=== PATIENT | male | born 1970 | race Caucasian/White ===

== ENCOUNTER 2018-06-20 12:23 | Emergency (ER) | payer SELFPAY ==
[~2018-06-20] VITALS: Ht 175.3 cm; Wt 99.8 kg
--- NOTE | 2018-06-20 12:53 | PHYS DOC ---
Past Medical History Past Medical History: No Pertinent History Past Surgical History: No Surgical History Additional Information: 2-3 PPD Alcohol Use: None Drug Use: Marijuana Adult General Chief Complaint Chief Complaint: HEAD INJURY/TRAUMA HPI HPI Patient is a 48 year old male whom presents to the ED complaining of ear injury 30 minutes ago. Patient cuts trees for a living and states he fell off a six-foot ladder and hit his head on a branch when he fell. States he cut his left ear but otherwise no complaints. Denies LOC, vision changes, nausea/ vomiting, weakness, dizziness, inability to walk, pelvic pain, use of blood thinners or chest pain. Review of Systems Review of Systems Constitutional: Denies fever or chills [] Eyes: Denies change in visual acuity, redness, or eye pain [] HENT: Denies nasal congestion or sore throat [] Respiratory: Denies cough or shortness of breath [] Cardiovascular: No additional information not addressed in HPI [] GI: Denies abdominal pain, nausea, vomiting, bloody stools or diarrhea [] : Denies dysuria or hematuria [] Musculoskeletal: Denies back pain or joint pain [] Integument: Denies rash or skin lesions [] Neurologic: Denies headache, focal weakness or sensory changes [] All other systems were reviewed and found to be within normal limits, except as documented in this note. Current Medications Current Medications Current Medications Medications (Trade) Dose Ordered Sig/Ross Start Time Stop Time Status Last Admin Dose Admin Acetaminophen/ Hydrocodone Bitart (Lortab 5/325) 1 tab 1X ONCE 06/20/18 14:00 06/20/18 14:01 DC 06/20/18 14:28 1 TAB Diphtheria/ Tetanus/Acell Pertussis (Boostrix) 0.5 ml ONCE ONCE 06/20/18 13:45 06/20/18 13:46 DC 06/20/18 14:30 0.5 ML Lidocaine HCl (Xylocaine 1% Pf 30ml Vial) 30 ml 1X ONCE 06/20/18 14:30 06/20/18 14:31 DC 06/20/18 14:23 30 ML Lidocaine/Sodium Bicarbonate (Buffered Lidocaine 1%) 6 ml 1X ONCE 06/20/18 13:15 06/20/18 13:16 DC 06/20/18 13:35 6 ML Neomycin/ Polymyxin/ Bacitracin (Triple Antibiotic Ointment) 1 pkt 1X ONCE 06/20/18 15:15 06/20/18 15:16 DC 06/20/18 15:38 1 PKT Ondansetron HCl (Zofran Odt) 8 mg 1X ONCE 06/20/18 15:45 06/20/18 15:46 DC 06/20/18 15:38 8 MG Allergies Allergies Allergies Coded Allergies Type Severity Reaction Last Updated Verified No Known Drug Allergies 06/20/18 No Physical Exam Physical Exam Constitutional: Well developed, well nourished, no acute distress, non-toxic appearance. [] HENT: Normocephalic, atraumatic, 5 CM left ear irregular laceration/avulsion to ear lobe through the middle of the pinna. oropharynx moist, no oral exudates, nose normal. [] Eyes: PERRLA, EOMI, conjunctiva normal, no discharge. [] Neck: Normal range of motion, no tenderness, supple, no stridor. [] Cardiovascular:Heart rate regular rhythm, no murmur [] Lungs & Thorax: Bilateral breath sounds clear to auscultation. mild left anterior rib tenderness. No overlying skin changes. Abdomen: Bowel sounds normal, soft, no tenderness, no masses, no pulsatile masses. [] Skin: Warm, dry, no erythema, no rash. [] Back: No tenderness, no CVA tenderness. [] Extremities: No tenderness, no cyanosis, no clubbing, ROM intact, no edema. [] Neurologic: Alert and oriented X 3, normal motor function, normal sensory function, no focal deficits noted. [] Psychologic: Affect normal, judgement normal, mood normal. [] Current Patient Data Vital Signs Vital Signs Date Time Temp Pulse Resp B/P (MAP) Pulse Ox O2 Delivery O2 Flow Rate FiO2 06/20/18 15:35 91 18 148/92 (110) 98 Room Air 06/20/18 12:30 97.3 97.3 EKG EKG [] Radiology/Procedures Radiology/Procedures []CT head and cervical spine without contrast History: Head and neck injury Technique: Noncontrast CT imaging was performed of the head and cervical spine. Multiplanar reconstruction images are submitted. Exposure: One or more of the following individualized dose reduction techniques were utilized for this examination: 1. Automated exposure control 2. Adjustment of the mA and/or kV according to patient size 3. Use of iterative reconstruction technique. Head CT Comparison: None Findings: No acute extra-axial or parenchymal hemorrhage is identified. There is no significant intra-axial mass effect, midline shift, or extra-axial fluid collection. The dale-white differentiation of the major vascular territories is preserved. The ventricles, sulci, and cisterns are within normal limits in size and configuration. Mastoid air cells are aerated. There is patchy mild/moderate ethmoid air cell mucosal thickening.There is no significant focal calvarial abnormality. There is right parietal region scalp soft tissue swelling/hematoma. Impression: 1. No acute intracranial abnormality is identified. Cervical spine CT Comparison: None Findings: No acute cervical spine fracture is identified. Vertebral body stature and AP alignment are within normal limits. Atlanto-axial distance is within normal limits. There is appropriate alignment of lateral masses of C1 relative to C2. Occipital condylar-C1 relationship is maintained. There is incomplete fusion of posterior elements of T1, corticated margin. There is moderate to severe degenerative disc disease at C5-C6, disc osteophyte complex at this level. There is also facet and uncovertebral degenerative change greatest on the left at C5-6 resulting in moderate narrowing of the left neural foramen. There is other multilevel facet degenerative change. There is mild dextroscoliosis. Impression: 1. No acute cervical spine fracture is identified. 2. There is degenerative disc disease and spondylosis C5-6. There is also moderate narrowing of the left C5-C6 neural foramen due to facet and uncovertebral degenerative change. Electronically signed by: Jh Osuna MD (06/20/2018 1:47 PM) [id number] Course & Med Decision Making Course & Med Decision Making Pertinent Labs and Imaging studies reviewed. (See chart for details) []Discussed imaging findings with patient. Patients pain improved. States he is feeling much better. Laceration repaired (multiple avulsed areas to left ear). No complications. Tetanus updated. Will discharge with prophylactic antibiotics. Discussed symptomatic treatment and wound care. Discussed follow- up for wound re-evaluation in 3 days. Provided contact information/education. Discussed reasons to return to the ED. Patient understands and agrees with plan. Dragon Disclaimer Dragon Disclaimer This electronic medical record was generated, in whole or in part, using a voice recognition dictation system. Departure Departure Impression: Primary Impression: Laceration of ear Additional Impressions: Head injury Rib pain Disposition: 01 HOME, SELF-CARE Condition: IMPROVED Referrals: MIGUEL RUTH MD Patient Instructions: Facial Laceration, Laceration Care, Adult Scripts Cephalexin (KEFLEX) 500 Mg Capsule 1 CAP PO QID for 7 Days, #28 CAP Prov: BRIANNE TEJADA 06/20/18 Laceration/Wound Repair Laceration/Wound Repair : Wound Location: face (left ear) Wound's Depth, Shape: superficial, irregular Wound Length (cm): 5 Wound Explored: clean Irrigated w/ Saline (ccs): 500 Betadine Prep?: Yes Anesthesia: 1% Lidocaine Volume Anesthetic (ccs): 6 Wound Debrided: minimal Wound Repaired With: sutures Suture Size/Type: 5:0, proline Number of Sutures: 8 Sterile Dressing Applied?: Yes Progress Well tolerated. No complications. Problem Qualifiers BRIANNE TEJADA Jun 20, 2018 12:52
[2018-06-20] MEDS ORDERED: LIDOCAINE WITH 8.4% SOD BICARB 3 ML DISP.SYRIN. INJ ONE (13:15)
[2018-06-20] MEDS ORDERED: DIPHTH,PERTUSS(ACELL),TET TOX 0.5 ML DISP.SYRIN. VAX IM ONE (13:45)
--- NOTE | 2018-06-20 13:50 | RAD ---
Left RIBS with chest, 3 views, 06/20/2018: HISTORY: Left-sided pain after fall Mild deformity of the anterior aspect of the left seventh rib is most likely due to an old fracture. No definite acute rib fracture is identified. There is no evidence of underlying pneumothorax, hemothorax or pleural fluid. The heart size is normal. IMPRESSION: 1. Mild deformity of the anterior aspect of the left seventh rib most compatible with an old fracture. 2. No acute left rib abnormality is detected. Electronically signed by: Rey Zaragoza MD (06/20/2018 1:46 PM) [facility]
--- NOTE | 2018-06-20 13:51 | RAD ---
CT head and cervical spine without contrast History: Head and neck injury Technique: Noncontrast CT imaging was performed of the head and cervical spine. Multiplanar reconstruction images are submitted. Exposure: One or more of the following individualized dose reduction techniques were utilized for this examination: 1. Automated exposure control 2. Adjustment of the mA and/or kV according to patient size 3. Use of iterative reconstruction technique. Head CT Comparison: None Findings: No acute extra-axial or parenchymal hemorrhage is identified. There is no significant intra-axial mass effect, midline shift, or extra-axial fluid collection. The dale-white differentiation of the major vascular territories is preserved. The ventricles, sulci, and cisterns are within normal limits in size and configuration. Mastoid air cells are aerated. There is patchy mild/moderate ethmoid air cell mucosal thickening.There is no significant focal calvarial abnormality. There is right parietal region scalp soft tissue swelling/hematoma. Impression: 1. No acute intracranial abnormality is identified. Cervical spine CT Comparison: None Findings: No acute cervical spine fracture is identified. Vertebral body stature and AP alignment are within normal limits. Atlanto-axial distance is within normal limits. There is appropriate alignment of lateral masses of C1 relative to C2. Occipital condylar-C1 relationship is maintained. There is incomplete fusion of posterior elements of T1, corticated margin. There is moderate to severe degenerative disc disease at C5-C6, disc osteophyte complex at this level. There is also facet and uncovertebral degenerative change greatest on the left at C5-6 resulting in moderate narrowing of the left neural foramen. There is other multilevel facet degenerative change. There is mild dextroscoliosis. Impression: 1. No acute cervical spine fracture is identified. 2. There is degenerative disc disease and spondylosis C5-6. There is also moderate narrowing of the left C5-C6 neural foramen due to facet and uncovertebral degenerative change. Electronically signed by: Jh Osuna MD (06/20/2018 1:47 PM) [id number]
[2018-06-20] MEDS ORDERED: HYDROcodone/APAP 5/325MG 1 TAB TABLET PO ONE (14:00)
[2018-06-20] MEDS ORDERED: LIDOCAINE 1% PF 30 ML VIAL. INJ ONE (14:30)
[2018-06-20] MEDS ORDERED: CEPH-264 PO (14:55)
[2018-06-20] MEDS ORDERED: NEOMY/BACITR/POLYMYXIN OINT PACKET. TP ONE (15:15)
[2018-06-20 15:35] VITALS: BP 148/92
[2018-06-20] MEDS ORDERED: ONDANSETRON ODT 4 MG TAB.RAPDIS. PO ONE (15:45)
== END 2018-06-20 15:40 | disposition home or self-care (01) ==
LOC: ER 12:23
DX: S01.312A Laceration without foreign body of left ear, initial encounter (principal); S09.90XA Unspecified injury of head, initial encounter; R07.81 Pleurodynia; F17.200 Nicotine dependence, unspecified, uncomplicated; W11.XXXA Fall on and from ladder, initial encounter; Y93.89 Activity, other specified; Y92.89 Other specified places as the place of occurrence of the external cause; Y99.8 Other external cause status
CPT/HCPCS: 12013; 70450; 71101; 72125; 90471; 90715; 99284; Q0162

== ENCOUNTER 2018-12-11 10:00 | Inpatient (IN) | payer SELFPAY ==
[2018-12-11] VITALS (16 sets, daily range): BP systolic 80–110; BP diastolic 50–75
[~2018-12-11] VITALS: Ht 185.4 cm; Wt 99.5 kg
[~2018-12-11 10:00] MED LIST: CEPH-264 PO
[2018-12-11] MEDS ORDERED: ONDANSETRON PF 4 MG/2 ML VIAL. ONE (10:09)
[2018-12-11] MEDS ORDERED: ONDANSETRON PF 4 MG/2 ML VIAL. IV ONE (10:15)
[2018-12-11] MEDS ORDERED: IV NORMAL SALINE 1000ML BAG 1,000 ML IV ONE ×2 (10:15→14:00)
[2018-12-11] MEDS ORDERED: PROPOFOL 50 ML IV ONE ×2 (10:16→11:38)
[2018-12-11 10:25] LABS: BASO # 0.1 x10^3/uL (0.0-0.2); BASO % 1 % (0-3); EOS % 0 % (0-3); HEMATOCRIT 47.3 % (39.0-53.0); HEMOGLOBIN 16.3 g/dL (13.0-17.5); LYMPH # 1.3 x10^3/uL (1.0-4.8); LYMPH % 5 % (24-48); MEAN CORPUSCULAR HEMOGLOBIN 30 pg (25-35); MEAN CORPUSCULAR HGB CONC 34 g/dL (31-37); MEAN CORPUSCULAR VOLUME 86 fL (79-100); MONO # 1.3 x10^3/uL (0.0-1.1); MONO % 5 % (0-9); NEUT % 89 % (31-73); PLATELET COUNT 365 x10^3/uL (140-400); RED BLOOD COUNT 5.52 x10^6/uL (4.30-5.70); RED CELL DISTRIBUTION WIDTH 12.5 % (11.5-14.5); WHITE BLOOD COUNT 24.8 x10^3/uL (4.0-11.0)
[2018-12-11] MEDS ORDERED: PROPOFOL 100 ML IV PRN (10:30)
[2018-12-11] MEDS ORDERED: fentaNYL PF VIAL 100 MCG/2 ML VIAL IV PRN (10:30)
[2018-12-11 10:32] LABS: CALCIUM 9.1 mg/dL (8.5-10.1); CREATININE 0.7 mg/dL (0.7-1.3); GFR 119.4; POTASSIUM 4.6 mmol/L (3.5-5.1)
[2018-12-11 10:39] LABS: ALBUMIN 3.6 g/dL (3.4-5.0); ALBUMIN/GLOBULIN RATIO 0.9 (1.0-1.7); TOTAL BILIRUBIN 0.4 mg/dL (0.2-1.0); TOTAL PROTEIN 7.6 g/dL (6.4-8.2)
[2018-12-11 10:48] LABS: ACETAMIN < 2 mcg/ml (10-30)
[2018-12-11 10:50] LABS: SALIC 39.7 mg/dL (2.8-20.0)
[2018-12-11 10:51] LABS: BARBITURATES NEG (NEG); BENZODIAZEPINES NEG (NEG); BILIRUBIN,URINE NEGATIVE (NEG); CANNABINOIDS NEG (NEG); CLARITY,URINE CLEAR; COCAINE NEG (NEG); COLOR,URINE YELLOW; METHADONE NEG (NEG); NITRITE,URINE NEGATIVE (NEG); OPIATES NEG (NEG); PH,URINE 6.5; PHENCYCLIDINE NEG (NEG); PROTEIN,URINE NEGATIVE (NEG-TRACE); UROBILINOGEN,URINE 0.2 mg/dL (0.2 mg/dL)
[2018-12-11 10:52] LABS: AMPHETAMINE/METHAMPHETAMINE NEG (NEG)
[2018-12-11] MEDS ORDERED: SODIUM BICARB ADULT 8.4% 50 MEQ/50 ML DISP.SYRIN. IV ONE (11:00)
--- NOTE | 2018-12-11 11:01 | EKG ---
[facility] [address] [place] [address] Test Date: 2018-12-11 Test Time: 10:12:37 Pat Name: HOSSEIN ZEE Department: Room: Gender: M [employer]: : [id number] Requested By: RODRI NG Order Number: [id number] Reading MD: Abisai Zuniga MD Measurements Intervals [place] Rate: 99 P: 51 OR: 146 QRS: 26 QRSD: 76 T: 54 QT: 346 QTc: 449 Interpretive Statements SINUS RHYTHM ANTERIOR ST SEGMENT CHANGES, NON-SPECIFIC, CORRELATE CLINICALLY Electronically Signed On 12-11-2018 11:12:56 CDT by Abisai Zuniga MD
--- NOTE | 2018-12-11 11:02 | RAD ---
Chest radiograph 12/11/2018 10:35 AM Abdominal radiograph INDICATION: Intubated orogastric tube placement COMPARISON: Chest radiograph June 20, 2018 TECHNIQUE: Supine view of the chest and supine view of abdomen are provided. FINDINGS: The cardiomediastinal silhouette is within normal limits. Endotracheal tube terminates 5 cm above the level of the david. Nasogastric tube is identified coursing below the level of the diaphragm, however the side port is above the level of the gastroesophageal junction. This may be advanced approximately 7 cm. There are no pleural effusions. There is no pulmonary vascular congestion. There is no pneumothorax. The lungs are clear. No significant osseous abnormality is identified. There is moderate distention of the stomach. There is a dilated small bowel loop in the left lower quadrant measuring 3.6 cm. Ulceration may be given for an ileus. No suspicious calcifications are present. IMPRESSION: 1. Endotracheal tube is in appropriate position. 2. Nasogastric tube may be advanced approximately 7 cm as the side port is above the level of the expected region of the gastroesophageal junction. 3. Moderate dilatation of the stomach and dilated small bowel loop in the left lower quadrant. Consideration may be given for an ileus. FOR INTERNAL CODING PURPOSES Critical result: Findings discussed with RODRI NG at 12/11/2018 10:58 AM. RESULT CODE: (C) Electronically signed by: Manuela Pagan MD (12/11/2018 10:59 AM) [id number]
[2018-12-11 11:04] LABS: AMORPHOUS SEDIMENT,UR PRESENT /HPF; BACTERIA,URINE 0 /HPF (0-FEW); HYALINE CASTS, URINE OCCASIONAL /HPF; RBC,URINE 0 /HPF (0-2); SQUAMOUS EPITHELIAL CELL,UR OCC /LPF; WBC,URINE 0 /HPF (0-4)
[2018-12-11 11:08] LABS: BASE EXCESS COOX -5 mmol/L (-3-3); HCO3 COOX 20 mmol/L (21-28); METHEMOGLOBIN 0.3 % (0.0-1.9); OXYHEMOGLOBIN 98.3 %; PCO2 COOX 36 mmHg (35-46); PO2 COOX 189 mmHg (75-108); SAT O2 COOX 99 % (92-99)
--- NOTE | 2018-12-11 11:13 | PHYS DOC ---
Past Medical History Past Medical History: No Pertinent History Past Surgical History: No Surgical History Alcohol Use: None Drug Use: Marijuana Adult General Chief Complaint Chief Complaint: SUICDAL IDEATION HPI HPI 48-year-old male with a history of hypertension and paranoid schizophrenia with previous suicide attempts presents after being found unresponsive today. According to the family the patient has been in and out of hospitals last several days with uncontrolled blood pressure. Apparently his blood pressure has been as high as 250 systolic. He was started on metoprolol out of the emergency department. The son found an empty bottle of metoprolol today and thinks that he may have taken as many as 20. He does not know of any other pills that he would have ingested. He did not find any other empty bottles in the house. Apparently, the patient was missing for some period of time and the [employer] Department found [place] [employer] in his [place] with large lacerations to both forearms. In talking to the family, there was also some blood at home so he may have done this as well at home. They did not see any ligature apparatus consistent with hanging. The patient is altered and is unable to provide any history.] Review of Systems Review of Systems Patient is unable to provide review of systems secondary to critical nature of his illness and altered mental status Current Medications Current Medications Current Medications Medications (Trade) Dose Ordered Sig/Ross Start Time Stop Time Status Last Admin Dose Admin Fentanyl Citrate (Fentanyl 2ml Vial) 50 mcg PRN Q1HR PRN 12/11/18 10:30 12/11/18 14:19 50 MCG Ondansetron HCl (Zofran) 4 mg 1X ONCE 12/11/18 10:15 12/11/18 10:16 DC 12/11/18 10:11 4 MG Propofol 100 ml @ 0 mls/hr CONT PRN 12/11/18 10:30 12/11/18 10:35 3 MLS/HR Sodium Bicarbonate (Sodium Bicarb Adult 8.4% Syr) 150 meq 1X ONCE 12/11/18 11:00 12/11/18 11:06 DC 12/11/18 11:27 150 MEQ Sodium Chloride 1,000 ml @ 1,000 mls/hr 1X ONCE 12/11/18 10:15 12/11/18 11:14 DC 12/11/18 10:12 1,000 MLS/HR Allergies Allergies Allergies Coded Allergies Type Severity Reaction Last Updated Verified No Known Drug Allergies 06/20/18 No Physical Exam Physical Exam Constitutional: Well developed, well nourished, in obvious distress with altered mental status. [] HENT: Normocephalic, atraumatic, bilateral external ears normal, oropharynx moist, no oral exudates, nose normal, very poor dentition. [] Eyes: Significant some conjunctival hemorrhage/petechiae bilateral eyes. [] Neck: Bruising around the neck consistent with ligature riggins[] Cardiovascular:Heart rate regular rhythm, no murmur [] Lungs & Thorax: Bilateral breath sounds clear to auscultation [] Abdomen: Bowel sounds normal, soft, no tenderness, no masses, no pulsatile masses. [] Skin: 10 cm deep laceration on the right forearm, an 8 cm laceration to the left proximal forearm and a 8 cm laceration to the left wrist. [] Back: No tenderness, no CVA tenderness. [] Extremities: No tenderness, no cyanosis, no clubbing, ROM intact, no edema. [] Neurologic: GCS of 9 moving all 4 extremities[] Psychologic: Unable to fully assess[] Current Patient Data Vital Signs Vital Signs Date Time Temp Pulse Resp B/P (MAP) Pulse Ox O2 Delivery O2 Flow Rate FiO2 12/11/18 11:10 90 16 133/94 (107) 100 Ventilator 12/11/18 10:15 2.0 12/11/18 10:09 98.6 98.6 Lab Values Laboratory Tests Test 12/11/18 10:00 12/11/18 10:03 12/11/18 10:19 12/11/18 10:22 Lactic Acid Level 2.1 mmol/L (0.4-2.0) H White Blood Count 24.8 x10^3/uL (4.0-11.0) H Red Blood Count 5.52 x10^6/uL (4.30-5.70) Hemoglobin 16.3 g/dL (13.0-17.5) Hematocrit 47.3 % (39.0-53.0) Mean Corpuscular Volume 86 fL (79-100) Mean Corpuscular Hemoglobin 30 pg (25-35) Mean Corpuscular Hemoglobin Concent 34 g/dL (31-37) Red Cell Distribution Width 12.5 % (11.5-14.5) Platelet Count 365 x10^3/uL (140-400) Neutrophils (%) (Auto) 89 % (31-73) H Lymphocytes (%) (Auto) 5 % (24-48) L Monocytes (%) (Auto) 5 % (0-9) Eosinophils (%) (Auto) 0 % (0-3) Basophils (%) (Auto) 1 % (0-3) Neutrophils # (Auto) 22.0 x10^3uL (1.8-7.7) H Lymphocytes # (Auto) 1.3 x10^3/uL (1.0-4.8) Monocytes # (Auto) 1.3 x10^3/uL (0.0-1.1) H Eosinophils # (Auto) 0.0 x10^3/uL (0.0-0.7) Basophils # (Auto) 0.1 x10^3/uL (0.0-0.2) Segmented Neutrophils % 87 % (35-66) H Band Neutrophils % 3 % (0-9) Lymphocytes % 7 % (24-48) L Monocytes % 3 % (0-10) Platelet Estimate Adequate (ADEQUATE) Sodium Level 129 mmol/L (136-145) L Potassium Level 4.6 mmol/L (3.5-5.1) Chloride Level 92 mmol/L (98-107) L Carbon Dioxide Level 25 mmol/L (21-32) Anion Gap 12 (6-14) Blood Urea Nitrogen 8 mg/dL (8-26) Creatinine 0.7 mg/dL (0.7-1.3) Estimated GFR (Cockcroft-Gault) 119.4 BUN/Creatinine Ratio 11 (6-20) Glucose Level 102 mg/dL (70-99) H Calcium Level 9.1 mg/dL (8.5-10.1) Total Bilirubin 0.4 mg/dL (0.2-1.0) Aspartate Amino Transferase (AST) 25 U/L (15-37) Alanine Aminotransferase (ALT) 29 U/L (16-63) Alkaline Phosphatase 79 U/L (46-116) Total Protein 7.6 g/dL (6.4-8.2) Albumin 3.6 g/dL (3.4-5.0) Albumin/Globulin Ratio 0.9 (1.0-1.7) L Salicylates Level 39.7 mg/dL (2.8-20.0) *H Salicylate Last Dose Date Unknown Salicylate Last Dose Time Unknown Acetaminophen Level < 2 mcg/ml (10-30) L Acetaminophen Last Dose Date Unknown Acetaminophen Last Dose Time Unknown Ethyl Alcohol Level < 10 mg/dL (0-10) O2 Saturation 99 % (92-99) Arterial Blood pH 7.35 (7.35-7.45) Arterial Blood pCO2 at Patient Temp 36 mmHg (35-46) Arterial Blood pO2 at Patient Temp 189 mmHg (75-108) H Arterial Blood HCO3 20 mmol/L (21-28) L Arterial Blood Base Excess -5 mmol/L (-3-3) L Oxyhemoglobin 98.3 % Methemoglobin 0.3 % (0.0-1.9) Carbon Monoxide, Quantitative 0.3 % (0.0-1.9) FiO2 100 Urine Collection Type Unknown Urine Color Yellow Urine Clarity Clear Urine pH 6.5 Urine Specific [place] 1.015 Urine Protein Negative mg/dL (NEG-TRACE) Urine Glucose (UA) Negative mg/dL (NEG) Urine Ketones (Stick) Negative mg/dL (NEG) Urine Blood Negative (NEG) Urine Nitrite Negative (NEG) Urine Bilirubin Negative (NEG) Urine Urobilinogen Dipstick 0.2 mg/dL (0.2 mg/dL) Urine Leukocyte Esterase Negative (NEG) Urine RBC 0 /HPF (0-2) Urine WBC 0 /HPF (0-4) Urine Squamous Epithelial Cells Occ /LPF Urine Amorphous Sediment Present /HPF Urine Bacteria 0 /HPF (0-FEW) Urine Hyaline Casts Occasional /HPF Urine Mucus Mod /LPF Urine Opiates Screen Neg (NEG) Urine Methadone Screen Neg (NEG) Urine Barbiturates Neg (NEG) Urine Phencyclidine Screen Neg (NEG) Urine Amphetamine/Methamphetamine Neg (NEG) Urine Benzodiazepines Screen Neg (NEG) Urine Cocaine Screen Neg (NEG) Urine Cannabinoids Screen Neg (NEG) Urine Ethyl Alcohol Neg (NEG) Laboratory Tests 12/11/18 10:03 Laboratory Tests 12/11/18 10:03 EKG EKG [] Radiology/Procedures Radiology/Procedures []PROCEDURE: CHEST AP ONLY Chest radiograph 12/11/2018 10:35 AM Abdominal radiograph INDICATION: Intubated orogastric tube placement COMPARISON: Chest radiograph June 20, 2018 TECHNIQUE: Supine view of the chest and supine view of abdomen are provided. FINDINGS: The cardiomediastinal silhouette is within normal limits. Endotracheal tube terminates 5 cm above the level of the david. Nasogastric tube is identified coursing below the level of the diaphragm, however the side port is above the level of the gastroesophageal junction. This may be advanced approximately 7 cm. There are no pleural effusions. There is no pulmonary vascular congestion. There is no pneumothorax. The lungs are clear. No significant osseous abnormality is identified. There is moderate distention of the stomach. There is a dilated small bowel loop in the left lower quadrant measuring 3.6 cm. Ulceration may be given for an ileus. No suspicious calcifications are present. IMPRESSION: 1. Endotracheal tube is in appropriate position. 2. Nasogastric tube may be advanced approximately 7 cm as the side port is above the level of the expected region of the gastroesophageal junction. 3. Moderate dilatation of the stomach and dilated small bowel loop in the left lower quadrant. Consideration may be given for an ileus. Impressions: PROCEDURE: CT HEAD AND CERVICAL SPINE [facility] Compliance Statement: One or more of the following individualized dose reduction techniques were utilized for this examination: 1. Automated exposure control 2. Adjustment of the mA and/or kV according to patient size 3. Use of iterative reconstruction technique CT HEAD AND CERVICAL SPINE WITHOUT CONTRAST History: TRAUMA. AMS. INTUBATED Comparison: CT head and cervical spine without contrast, June 20, 2018. Procedure: Axial images are obtained of the head from the skull base through the vertex without IV contrast. Noncontrast helical CT of the cervical spine was performed. Axial, sagittal, and coronal reconstructions were obtained. Findings: The ventricles and sulci are normal for the patient's age. No mass-effect, midline shift, hemorrhage or obvious acute infarction is identified. Basilar cisterns are patent. Bone windows demonstrate no significant calvarial abnormality. Mild bilateral ethmoid sinus mucosal thickening. Tiny right maxillary sinus mucous retention cyst or polyp. Mastoid air cells are well aerated. There is no evidence of acute fracture or acute malalignment of the cervical spine. The facet joints are intact. The vertebral body height and alignment are maintained. There is degenerative spondylosis of C5/C6. The craniovertebral junction is maintained. Visualized soft tissues of the neck demonstrate no significant abnormalities. There is opacity in the posterior right lung apex. Endotracheal and enteric tubes are noted. IMPRESSION: 1. No acute intracranial abnormality. 2. No acute fracture of the cervical spine. Course & Med Decision Making Course & Med Decision Making Pertinent Labs and Imaging studies reviewed. (See chart for details) [Procedure: Rapid sequence intubation reason: Airway protection Patient was breathing 8 times a minute with a reasonable oxygen saturation however he vomited and did not seem like he was protecting his airway. The patient was then given 20 mg of etomidate followed by 100 mg of succinylcholine and then using a direct visualization technique with a 4 Tung blade and 80 ET tube was placed at 21 cm at the lips. Slight CO2 color change was noted and bilateral breath sounds were auscultated. Procedure: Laceration repair right forearm - laceration is 10 cm The wound was prepped with Betadine and sponge scrubbing the area of the wound was inspected there was no foreign body been using a stapler 11 simple jt were applied with excellent reapproximation Procedure: Laceration repair left forearm - proximal laceration is 8 cm] The wound was prepped with Betadine and sponge scrubbing the area of the wound was inspected and there was no foreign body noted. Using a stapler 7 jt were applied with excellent reapproximation Procedure: Laceration repair left wrist - laceration is 8 cm The wound was prepped with Betadine and sponge scrubbing the area of the wound was inspected and there was no foreign body noted. Using a stapler 6 jt were applied with excellent reapproximation ED course: Evaluation reveals a critically ill 48-year-old male with an elevated salicylate level. The patient was intubated for airway protection. The patient was then given 3 A of sodium bicarbonate followed by a sodium bicarbonate drip at 200 mL an hour in an attempt alkalinize his urine. I have let Dr. Santamaria know about this patient and he is agreed to admit the patient to the ICU. We will consult both pulmonary and nephrology. Furthermore, the patient 's heart rate has been in the 90s and therefore I do not believe it is necessary at this time to use glucagon as an antidote for beta mariely overdose. The patient may very well have taken beta blockers but at this time it is not suggesting that. CRITICAL CARE: Time spent was 45 minutes. This includes medical management, evaluation, reevaluation, discussion with consultants and family. Critical Care does NOT include time spent on separately billed procedures. Dragon Disclaimer Dragon Disclaimer This electronic medical record was generated, in whole or in part, using a voice recognition dictation system. Departure Departure Impression: Primary Impression: Suicide attempt by beta mariely overdose Additional Impressions: Suicide attempt by hanging Salicylate overdose Laceration of right forearm Laceration of left forearm Laceration of left wrist Disposition: 09 ADMITTED INPATIENT Admitting Physician: Trisha Tolliver Condition: CRITICAL Referrals: NO PCP (PCP) Problem Qualifiers Primary Impression: Suicide attempt by beta mariely overdose Encounter type: initial encounter Qualified Codes: T44.7X2A - Poisoning by beta-adrenoreceptor antagonists, intentional self-harm, initial encounter Additional Impressions: Suicide attempt by hanging Encounter type: initial encounter Qualified Codes: T71.162A - Asphyxiation due to hanging, intentional self-harm, initial encounter Salicylate overdose Encounter type: initial encounter Injury intent: intentional self-harm Qualified Codes: T39.092A - Poisoning by salicylates, intentional self-harm, initial encounter Laceration of right forearm Encounter type: initial encounter Qualified Codes: S51.811A - Laceration without foreign body of right forearm, initial encounter Laceration of left forearm Encounter type: initial encounter Qualified Codes: S51.812A - Laceration without foreign body of left forearm, initial encounter Laceration of left wrist Encounter type: initial encounter Qualified Codes: S61.512A - Laceration without foreign body of left wrist, initial encounter RODRI NG DO Dec 11, 2018 11:13
[2018-12-11] MEDS ORDERED: TETANUS AND DIPHTHERIA TOX/PF 0.5 ML DISP.SYRIN. VAX IM ONE (11:15)
--- NOTE | 2018-12-11 11:20 | RAD ---
[facility] Compliance Statement: One or more of the following individualized dose reduction techniques were utilized for this examination: 1. Automated exposure control 2. Adjustment of the mA and/or kV according to patient size 3. Use of iterative reconstruction technique CT HEAD AND CERVICAL SPINE WITHOUT CONTRAST History: TRAUMA. AMS. INTUBATED Comparison: CT head and cervical spine without contrast, June 20, 2018. Procedure: Axial images are obtained of the head from the skull base through the vertex without IV contrast. Noncontrast helical CT of the cervical spine was performed. Axial, sagittal, and coronal reconstructions were obtained. Findings: The ventricles and sulci are normal for the patient's age. No mass-effect, midline shift, hemorrhage or obvious acute infarction is identified. Basilar cisterns are patent. Bone windows demonstrate no significant calvarial abnormality. Mild bilateral ethmoid sinus mucosal thickening. Tiny right maxillary sinus mucous retention cyst or polyp. Mastoid air cells are well aerated. There is no evidence of acute fracture or acute malalignment of the cervical spine. The facet joints are intact. The vertebral body height and alignment are maintained. There is degenerative spondylosis of C5/C6. The craniovertebral junction is maintained. Visualized soft tissues of the neck demonstrate no significant abnormalities. There is opacity in the posterior right lung apex. Endotracheal and enteric tubes are noted. IMPRESSION: 1. No acute intracranial abnormality. 2. No acute fracture of the cervical spine. Electronically signed by: Geo Frank MD (12/11/2018 11:17 AM) [id number]
[2018-12-11 11:30] LABS: % BANDS 3 % (0-9); % LYMPHS 7 % (24-48); % MONOS 3 % (0-10); % SEGS 87 % (35-66); PLT ESTIMATE ADEQUATE (ADEQUATE)
[2018-12-11] MEDS: SODIUM BICARBONATE VIAL 100 MEQ in IV DEXTROSE 5% 1,000 ML IV SCH ×3 (11:33→21:46)
[2018-12-11] MEDS ORDERED: ETOMIDATE 20 MG/10 ML VIAL. IV ONE (11:48)
[2018-12-11] MEDS ORDERED: SUCCINYLCHOLINE 200 MG/10 ML VIAL. ONE (11:49)
--- NOTE | 2018-12-11 13:14 | PDOC ---
PULMONARY PROGRESS NOTES Vitals Vital Signs Date Time Temp Pulse Resp B/P (MAP) Pulse Ox O2 Delivery O2 Flow Rate FiO2 12/11/18 11:10 90 16 133/94 (107) 100 Ventilator 12/11/18 10:15 2.0 12/11/18 10:09 98.6 98.6 Labs Laboratory Tests Test 12/11/18 10:00 12/11/18 10:03 12/11/18 10:19 12/11/18 10:22 Lactic Acid Level 2.1 mmol/L (0.4-2.0) White Blood Count 24.8 x10^3/uL (4.0-11.0) Red Blood Count 5.52 x10^6/uL (4.30-5.70) Hemoglobin 16.3 g/dL (13.0-17.5) Hematocrit 47.3 % (39.0-53.0) Mean Corpuscular Volume 86 fL (79-100) Mean Corpuscular Hemoglobin 30 pg (25-35) Mean Corpuscular Hemoglobin Concent 34 g/dL (31-37) Red Cell Distribution Width 12.5 % (11.5-14.5) Platelet Count 365 x10^3/uL (140-400) Neutrophils (%) (Auto) 89 % (31-73) Lymphocytes (%) (Auto) 5 % (24-48) Monocytes (%) (Auto) 5 % (0-9) Eosinophils (%) (Auto) 0 % (0-3) Basophils (%) (Auto) 1 % (0-3) Neutrophils # (Auto) 22.0 x10^3uL (1.8-7.7) Lymphocytes # (Auto) 1.3 x10^3/uL (1.0-4.8) Monocytes # (Auto) 1.3 x10^3/uL (0.0-1.1) Eosinophils # (Auto) 0.0 x10^3/uL (0.0-0.7) Basophils # (Auto) 0.1 x10^3/uL (0.0-0.2) Segmented Neutrophils % 87 % (35-66) Band Neutrophils % 3 % (0-9) Lymphocytes % 7 % (24-48) Monocytes % 3 % (0-10) Platelet Estimate Adequate (ADEQUATE) Sodium Level 129 mmol/L (136-145) Potassium Level 4.6 mmol/L (3.5-5.1) Chloride Level 92 mmol/L (98-107) Carbon Dioxide Level 25 mmol/L (21-32) Anion Gap 12 (6-14) Blood Urea Nitrogen 8 mg/dL (8-26) Creatinine 0.7 mg/dL (0.7-1.3) Estimated GFR (Cockcroft-Gault) 119.4 BUN/Creatinine Ratio 11 (6-20) Glucose Level 102 mg/dL (70-99) Calcium Level 9.1 mg/dL (8.5-10.1) Total Bilirubin 0.4 mg/dL (0.2-1.0) Aspartate Amino Transf (AST/SGOT) 25 U/L (15-37) Alanine Aminotransferase (ALT/SGPT) 29 U/L (16-63) Alkaline Phosphatase 79 U/L (46-116) Total Protein 7.6 g/dL (6.4-8.2) Albumin 3.6 g/dL (3.4-5.0) Albumin/Globulin Ratio 0.9 (1.0-1.7) Salicylates Level 39.7 mg/dL (2.8-20.0) Salicylate Last Dose Date Unknown Salicylate Last Dose Time Unknown Acetaminophen Level < 2 mcg/ml (10-30) Acetaminophen Last Dose Date Unknown Acetaminophen Last Dose Time Unknown Ethyl Alcohol Level < 10 mg/dL (0-10) O2 Saturation 99 % (92-99) Arterial Blood pH 7.35 (7.35-7.45) Arterial Blood pCO2 at Patient Temp 36 mmHg (35-46) Arterial Blood pO2 at Patient Temp 189 mmHg (75-108) Arterial Blood HCO3 20 mmol/L (21-28) Arterial Blood Base Excess -5 mmol/L (-3-3) Oxyhemoglobin 98.3 % Methemoglobin 0.3 % (0.0-1.9) Carbon Monoxide, Quantitative 0.3 % (0.0-1.9) FiO2 100 Urine Collection Type Unknown Urine Color Yellow Urine Clarity Clear Urine pH 6.5 Urine Specific [place] 1.015 Urine Protein Negative mg/dL (NEG-TRACE) Urine Glucose (UA) Negative mg/dL (NEG) Urine Ketones (Stick) Negative mg/dL (NEG) Urine Blood Negative (NEG) Urine Nitrite Negative (NEG) Urine Bilirubin Negative (NEG) Urine Urobilinogen Dipstick 0.2 mg/dL (0.2 mg/dL) Urine Leukocyte Esterase Negative (NEG) Urine RBC 0 /HPF (0-2) Urine WBC 0 /HPF (0-4) Urine Squamous Epithelial Cells Occ /LPF Urine Amorphous Sediment Present /HPF Urine Bacteria 0 /HPF (0-FEW) Urine Hyaline Casts Occasional /HPF Urine Mucus Mod /LPF Urine Opiates Screen Neg (NEG) Urine Methadone Screen Neg (NEG) Urine Barbiturates Neg (NEG) Urine Phencyclidine Screen Neg (NEG) Urine Amphetamine/Methamphetamine Neg (NEG) Urine Benzodiazepines Screen Neg (NEG) Urine Cocaine Screen Neg (NEG) Urine Cannabinoids Screen Neg (NEG) Urine Ethyl Alcohol Neg (NEG) Laboratory Tests Test 12/11/18 10:00 12/11/18 10:03 12/11/18 10:19 12/11/18 10:22 Lactic Acid Level 2.1 mmol/L (0.4-2.0) White Blood Count 24.8 x10^3/uL (4.0-11.0) Red Blood Count 5.52 x10^6/uL (4.30-5.70) Hemoglobin 16.3 g/dL (13.0-17.5) Hematocrit 47.3 % (39.0-53.0) Mean Corpuscular Volume 86 fL (79-100) Mean Corpuscular Hemoglobin 30 pg (25-35) Mean Corpuscular Hemoglobin Concent 34 g/dL (31-37) Red Cell Distribution Width 12.5 % (11.5-14.5) Platelet Count 365 x10^3/uL (140-400) Neutrophils (%) (Auto) 89 % (31-73) Lymphocytes (%) (Auto) 5 % (24-48) Monocytes (%) (Auto) 5 % (0-9) Eosinophils (%) (Auto) 0 % (0-3) Basophils (%) (Auto) 1 % (0-3) Neutrophils # (Auto) 22.0 x10^3uL (1.8-7.7) Lymphocytes # (Auto) 1.3 x10^3/uL (1.0-4.8) Monocytes # (Auto) 1.3 x10^3/uL (0.0-1.1) Eosinophils # (Auto) 0.0 x10^3/uL (0.0-0.7) Basophils # (Auto) 0.1 x10^3/uL (0.0-0.2) Segmented Neutrophils % 87 % (35-66) Band Neutrophils % 3 % (0-9) Lymphocytes % 7 % (24-48) Monocytes % 3 % (0-10) Platelet Estimate Adequate (ADEQUATE) Sodium Level 129 mmol/L (136-145) Potassium Level 4.6 mmol/L (3.5-5.1) Chloride Level 92 mmol/L (98-107) Carbon Dioxide Level 25 mmol/L (21-32) Anion Gap 12 (6-14) Blood Urea Nitrogen 8 mg/dL (8-26) Creatinine 0.7 mg/dL (0.7-1.3) Estimated GFR (Cockcroft-Gault) 119.4 BUN/Creatinine Ratio 11 (6-20) Glucose Level 102 mg/dL (70-99) Calcium Level 9.1 mg/dL (8.5-10.1) Total Bilirubin 0.4 mg/dL (0.2-1.0) Aspartate Amino Transf (AST/SGOT) 25 U/L (15-37) Alanine Aminotransferase (ALT/SGPT) 29 U/L (16-63) Alkaline Phosphatase 79 U/L (46-116) Total Protein 7.6 g/dL (6.4-8.2) Albumin 3.6 g/dL (3.4-5.0) Albumin/Globulin Ratio 0.9 (1.0-1.7) Salicylates Level 39.7 mg/dL (2.8-20.0) Salicylate Last Dose Date Unknown Salicylate Last Dose Time Unknown Acetaminophen Level < 2 mcg/ml (10-30) Acetaminophen Last Dose Date Unknown Acetaminophen Last Dose Time Unknown Ethyl Alcohol Level < 10 mg/dL (0-10) O2 Saturation 99 % (92-99) Arterial Blood pH 7.35 (7.35-7.45) Arterial Blood pCO2 at Patient Temp 36 mmHg (35-46) Arterial Blood pO2 at Patient Temp 189 mmHg (75-108) Arterial Blood HCO3 20 mmol/L (21-28) Arterial Blood Base Excess -5 mmol/L (-3-3) Oxyhemoglobin 98.3 % Methemoglobin 0.3 % (0.0-1.9) Carbon Monoxide, Quantitative 0.3 % (0.0-1.9) FiO2 100 Urine Collection Type Unknown Urine Color Yellow Urine Clarity Clear Urine pH 6.5 Urine Specific [place] 1.015 Urine Protein Negative mg/dL (NEG-TRACE) Urine Glucose (UA) Negative mg/dL (NEG) Urine Ketones (Stick) Negative mg/dL (NEG) Urine Blood Negative (NEG) Urine Nitrite Negative (NEG) Urine Bilirubin Negative (NEG) Urine Urobilinogen Dipstick 0.2 mg/dL (0.2 mg/dL) Urine Leukocyte Esterase Negative (NEG) Urine RBC 0 /HPF (0-2) Urine WBC 0 /HPF (0-4) Urine Squamous Epithelial Cells Occ /LPF Urine Amorphous Sediment Present /HPF Urine Bacteria 0 /HPF (0-FEW) Urine Hyaline Casts Occasional /HPF Urine Mucus Mod /LPF Urine Opiates Screen Neg (NEG) Urine Methadone Screen Neg (NEG) Urine Barbiturates Neg (NEG) Urine Phencyclidine Screen Neg (NEG) Urine Amphetamine/Methamphetamine Neg (NEG) Urine Benzodiazepines Screen Neg (NEG) Urine Cocaine Screen Neg (NEG) Urine Cannabinoids Screen Neg (NEG) Urine Ethyl Alcohol Neg (NEG) Medications Active Scripts Medications Dose Route/Sig Max Daily Dose Days Date Category Keflex (Cephalexin) 500 Mg Capsule 1 Cap PO QID 7 06/20/18 Rx Impression . FULL NOTE DICTATE D/W DR SANTAMARIA CONTINUE SUPPORT WILL REPEAT ASA LEVEL MAY REQUIRE HD IF INCREASING LEVELS THANKS MAISHA NUNEZ MD Dec 11, 2018 13:14
[2018-12-11] MEDS ORDERED: DIPH25CA58 PO (13:15)
[2018-12-11] MEDS ORDERED: ASPI325T8 PO (13:15)
[2018-12-11] MEDS ORDERED: METO-239 PO (13:15)
--- NOTE | 2018-12-11 13:25 | NUR ---
Patient admitted to ICU from ED at 1230. Family at bedside. Patient's wrists re-wrapped, multiple jt in each arm. According to ED RN and family, patient took entire bottle of ASA, Metoprolol, and Benadryl this morning. Patient on ventilator. Dr. Sargent rounded on patient. ABG ordered. Dr. Kaur notified of Salycitate level. Repeat ordered. Dr. Kaur notified of level when rounding on patient. Family aware of patient's condition. Currently his son is at the bedside.
[2018-12-11 13:30] LABS: SALIC 38.5 mg/dL (2.8-20.0)
--- NOTE | 2018-12-11 13:42 | HP ---
ADMIT DATE: 12/11/2018 CHIEF COMPLAINT: Respiratory failure, suicidal ideation, tried to hang himself and slit his wrist. HISTORY OF PRESENT ILLNESS: The patient is a pleasant 48-year-old male who was brought in by ambulance. I believe the police found him. They pinged his phone because his family or friends noticed that he was not answering. They found him in his truck, I believe, in the parking lot, [place] or [place] park, I was not quite clear on that. Nevertheless, the patient was unresponsive. He had blood all over him, on his feet, on his hands, all over his socks, looks like he had slit his wrist. He also appears to have probably tried to hang himself at some point because his neck is somewhat bruised. He has also got petechial hemorrhages and subconjunctival hemorrhages on his eyes. The ER physician appropriately intubated the patient here once he arrived. He is now being examined in the room 1 where he is critically ill and on the vent. PAST MEDICAL HISTORY: Difficult to obtain as the patient is on the vent. ALLERGIES: Unknown. SOCIAL HISTORY: Unknown. MEDICATIONS: Unknown. REVIEW OF SYSTEMS: Unable to obtain. PHYSICAL EXAMINATION: VITAL SIGNS: Temperature afebrile, pulse 110, respirations 20 and blood pressure was 250/120 and is now down to 190/84. GENERAL: He is sedated on the vent, trying to over breathe the vent, being examined in the ER room 1. HEART: Tachy S1, S2. LUNGS: Coarse. ABDOMEN: Soft and distended. EXTREMITIES: Trace edema. He has also got blood on the bottom of his feet, on his hands and under his nails. The wrist has been slit on the right and the left. ENDOCRINE: No thyromegaly. LYMPHATICS: No cervical nodes. HEMATOPOIETIC: He has got bruising on his neck. HEENT: He has bilateral subconjunctival hemorrhages. LABORATORY DATA: Electrolytes: Sodium 129, potassium 4.6, chloride 92, bicarbonate 25, BUN 8, creatinine 0.7 and glucose 112. White count 24.8, hemoglobin 16.3 and platelets 365. Imaging is pending. Urinalysis is negative. Aspirin level is high at 39.7. ASSESSMENT AND PLAN: Suicidal ideation with probable attempt at hanging himself, slitting his wrist and probable aspirin overdose as well. The patient has been admitted to the ICU on the vent. We will consult Pulmonary and consult Nephrology regarding the aspirin overdose. We will try to alkalinize his urine with sodium bicarbonate. Frequent labs. DVT prophylaxis. Full code for now. Suspect he is going to need psychiatric evaluation once we get him off the ventilator. We will need to hold off on that for now. Prognosis is extremely guarded at best. Total time on this critically ill patient 37 minutes. ESTEFANY VELÁZQUEZ DO DR: ANDREA/kelly JOB#: [id number] / [id number]
[2018-12-11] MEDS ORDERED: MIDAZOLAM 100mg/100ml NS BAG 100 ML IV PRN (13:45)
--- NOTE | 2018-12-11 13:58 | PDOC2 ---
CONSULT Date of Consult Date of Consult DATE: 12/11/18 TIME: 13:49 Reason for Consult Reason for Consult: ASA POISONING Referring Physician Referring Physician: EBER Identification/Chief Complaint Chief Complaint SI ATTEMPT Source Source: Chart review History of Present Illness Reason for Visit: THIS IS A 48 YR OLD WITH A SI ATTEMPT. APPARENTLY NOTED TO HAVE LACERATIONS IN HIS FOREARM AND ALSO ? HANGING ATTEMPT. FAMILY THOUGHT HE MAY HAVE TAKEN EXCESS AMOUNTS OF METOPROLOL BUT TOXICOLOGY POS FOR HIGH LEVELS OF SALICYLATE AT ABOUT 38 MG /DL. NORMAL RENAL FXN NOTED. PT WAS IMMEDIATELY INTUBATED ON ARRIVAL. CURRENTLY IN THE ICU WITH HYPOTENSION BUT NO BRADYCARDIA NOTED. APPARENTLY HAS BEEN SUICIDAL IN THE PAST Past Medical History Cardiovascular: HTN Psych: Depression, Other (SUICIDE ATTEMPTS) Current Problem List Problem List Problems Medical Problems: (1) Laceration of left forearm Status: Acute (2) Laceration of left wrist Status: Acute (3) Laceration of right forearm Status: Acute (4) Salicylate overdose Status: Acute (5) Suicide attempt by beta mariely overdose Status: Acute (6) Suicide attempt by hanging Status: Acute Current Medications Current Medications Current Medications Ondansetron HCl (Zofran) 4 mg STK-MED ONCE .ROUTE ; Start 12/11/18 at 10:09; Stop 12/11/18 at 10:10; Status DC Ondansetron HCl (Zofran) 4 mg 1X ONCE IV Last administered on 12/11/18at 10:11 ; Start 12/11/18 at 10:15; Stop 12/11/18 at 10:16; Status DC Sodium Chloride 1,000 ml @ 1,000 mls/hr 1X ONCE IV Last administered on at 10:12; Start 12/11/18 at 10:15; Stop 12/11/18 at 11:14; Status DC Propofol 50 ml @ As Directed STK-MED ONCE IV ; Start 12/11/18 at 10:16; Stop at 10:17; Status DC Propofol 100 ml @ 0 mls/hr CONT PRN IV SEE PROTOCOL Last administered on at 10:35; Start 12/11/18 at 10:30 Fentanyl Citrate (Fentanyl 2ml Vial) 25 mcg PRN Q1HR PRN IV SEE COMMENTS; Start 12/11/18 at 10:30 Fentanyl Citrate (Fentanyl 2ml Vial) 50 mcg PRN Q1HR PRN IV SEE COMMENTS; Start 12/11/18 at 10:30 Chlorhexidine Gluconate (Peridex) 15 ml BID MM ; Start 12/11/18 at 21:00 Sodium Bicarbonate (Sodium Bicarb Adult 8.4% Syr) 150 meq 1X ONCE IV Last administered on 12/11/18at 11:27; Start 12/11/18 at 11:00; Stop 12/11/18 at 11:06 ; Status DC Sodium Bicarbonate 100 meq/Dextrose 1,100 ml @ 200 mls/hr Q5H30M IV Last administered on 12/11/18at 11:33; Start 12/11/18 at 11:15 Tetanus/ Diphtheria Toxoids (Tenivac Syringe) 0.5 ml ONCE ONCE VAX IM Last administered on 12/11/18at 11:41; Start 12/11/18 at 11:15; Stop 12/11/18 at 11:16 ; Status DC Propofol 50 ml @ As Directed STK-MED ONCE IV ; Start 12/11/18 at 11:38; Stop at 11:39; Status DC Etomidate (Amidate) 20 mg STK-MED ONCE IV ; Start 12/11/18 at 11:48; Stop at 11:49; Status DC Succinylcholine Chloride (Anectine) 200 mg STK-MED ONCE .ROUTE ; Start 12/11/18 at 11:49; Stop 12/11/18 at 11:50; Status DC Midazolam HCl 100 ml @ 5 mls/hr CONT PRN IV SEE I/O RECORD; Start 12/11/18 at 14:00; Status UNV Active Scripts Active Keflex (Cephalexin) 500 Mg Capsule 1 Cap PO QID 7 Days Reported Aspirin 325 Mg Tablet 1 Tab PO DAILY Benadryl (Diphenhydramine Hcl) 25 Mg Capsule 1 Cap PO QHS Metoprolol Succinate ( Xl ) (Metoprolol Succinate) 25 Mg Tab.er.24h 1 Tab PO DAILY Allergies Allergies: Coded Allergies: No Known Drug Allergies (Unverified , 06/20/18) ROS Review of System UNABLE TO OBTAIN Physical Exam General: Other (SEDATED) HEENT: Other (SOME CONJUNCTIVAL HEMORRHAGE) Lungs: Clear to auscultation, Normal air movement Heart: Regular rate Abdomen: Normal bowel sounds, Soft, Other Extremities: No clubbing Skin: No breakdown Neuro: Other (SEDATED) Psych/Mental Status: Other (SEDATED AND INTUBATED) MUSCULOSKELETAL: No joint tenderness, No deformity, No swelling Vitals VITALS Vital Signs Date Time Temp Pulse Resp B/P (MAP) Pulse Ox O2 Delivery O2 Flow Rate FiO2 12/11/18 13:19 Mechanical Ventilator 12/11/18 12:15 82 20 121/60 (80) 100 12/11/18 10:15 2.0 12/11/18 10:09 98.6 98.6 Labs Labs Laboratory Tests Test 12/11/18 10:00 12/11/18 10:03 12/11/18 10:19 12/11/18 10:22 Lactic Acid Level 2.1 mmol/L (0.4-2.0) White Blood Count 24.8 x10^3/uL (4.0-11.0) Red Blood Count 5.52 x10^6/uL (4.30-5.70) Hemoglobin 16.3 g/dL (13.0-17.5) Hematocrit 47.3 % (39.0-53.0) Mean Corpuscular Volume 86 fL (79-100) Mean Corpuscular Hemoglobin 30 pg (25-35) Mean Corpuscular Hemoglobin Concent 34 g/dL (31-37) Red Cell Distribution Width 12.5 % (11.5-14.5) Platelet Count 365 x10^3/uL (140-400) Neutrophils (%) (Auto) 89 % (31-73) Lymphocytes (%) (Auto) 5 % (24-48) Monocytes (%) (Auto) 5 % (0-9) Eosinophils (%) (Auto) 0 % (0-3) Basophils (%) (Auto) 1 % (0-3) Neutrophils # (Auto) 22.0 x10^3uL (1.8-7.7) Lymphocytes # (Auto) 1.3 x10^3/uL (1.0-4.8) Monocytes # (Auto) 1.3 x10^3/uL (0.0-1.1) Eosinophils # (Auto) 0.0 x10^3/uL (0.0-0.7) Basophils # (Auto) 0.1 x10^3/uL (0.0-0.2) Segmented Neutrophils % 87 % (35-66) Band Neutrophils % 3 % (0-9) Lymphocytes % 7 % (24-48) Monocytes % 3 % (0-10) Platelet Estimate Adequate (ADEQUATE) Sodium Level 129 mmol/L (136-145) Potassium Level 4.6 mmol/L (3.5-5.1) Chloride Level 92 mmol/L (98-107) Carbon Dioxide Level 25 mmol/L (21-32) Anion Gap 12 (6-14) Blood Urea Nitrogen 8 mg/dL (8-26) Creatinine 0.7 mg/dL (0.7-1.3) Estimated GFR (Cockcroft-Gault) 119.4 BUN/Creatinine Ratio 11 (6-20) Glucose Level 102 mg/dL (70-99) Calcium Level 9.1 mg/dL (8.5-10.1) Total Bilirubin 0.4 mg/dL (0.2-1.0) Aspartate Amino Transf (AST/SGOT) 25 U/L (15-37) Alanine Aminotransferase (ALT/SGPT) 29 U/L (16-63) Alkaline Phosphatase 79 U/L (46-116) Total Protein 7.6 g/dL (6.4-8.2) Albumin 3.6 g/dL (3.4-5.0) Albumin/Globulin Ratio 0.9 (1.0-1.7) Salicylates Level 39.7 mg/dL (2.8-20.0) Salicylate Last Dose Date Unknown Salicylate Last Dose Time Unknown Acetaminophen Level < 2 mcg/ml (10-30) Acetaminophen Last Dose Date Unknown Acetaminophen Last Dose Time Unknown Ethyl Alcohol Level < 10 mg/dL (0-10) O2 Saturation 99 % (92-99) Arterial Blood pH 7.35 (7.35-7.45) Arterial Blood pCO2 at Patient Temp 36 mmHg (35-46) Arterial Blood pO2 at Patient Temp 189 mmHg (75-108) Arterial Blood HCO3 20 mmol/L (21-28) Arterial Blood Base Excess -5 mmol/L (-3-3) Oxyhemoglobin 98.3 % Methemoglobin 0.3 % (0.0-1.9) Carbon Monoxide, Quantitative 0.3 % (0.0-1.9) FiO2 100 Urine Collection Type Unknown Urine Color Yellow Urine Clarity Clear Urine pH 6.5 Urine Specific [place] 1.015 Urine Protein Negative mg/dL (NEG-TRACE) Urine Glucose (UA) Negative mg/dL (NEG) Urine Ketones (Stick) Negative mg/dL (NEG) Urine Blood Negative (NEG) Urine Nitrite Negative (NEG) Urine Bilirubin Negative (NEG) Urine Urobilinogen Dipstick 0.2 mg/dL (0.2 mg/dL) Urine Leukocyte Esterase Negative (NEG) Urine RBC 0 /HPF (0-2) Urine WBC 0 /HPF (0-4) Urine Squamous Epithelial Cells Occ /LPF Urine Amorphous Sediment Present /HPF Urine Bacteria 0 /HPF (0-FEW) Urine Hyaline Casts Occasional /HPF Urine Mucus Mod /LPF Urine Opiates Screen Neg (NEG) Urine Methadone Screen Neg (NEG) Urine Barbiturates Neg (NEG) Urine Phencyclidine Screen Neg (NEG) Urine Amphetamine/Methamphetamine Neg (NEG) Urine Benzodiazepines Screen Neg (NEG) Urine Cocaine Screen Neg (NEG) Urine Cannabinoids Screen Neg (NEG) Urine Ethyl Alcohol Neg (NEG) Test 12/11/18 13:15 Salicylates Level 38.5 mg/dL (2.8-20.0) Salicylate Last Dose Date Unknown Salicylate Last Dose Time Unknown Laboratory Tests Test 12/11/18 10:00 12/11/18 10:03 12/11/18 10:19 12/11/18 10:22 Lactic Acid Level 2.1 mmol/L (0.4-2.0) White Blood Count 24.8 x10^3/uL (4.0-11.0) Red Blood Count 5.52 x10^6/uL (4.30-5.70) Hemoglobin 16.3 g/dL (13.0-17.5) Hematocrit 47.3 % (39.0-53.0) Mean Corpuscular Volume 86 fL (79-100) Mean Corpuscular Hemoglobin 30 pg (25-35) Mean Corpuscular Hemoglobin Concent 34 g/dL (31-37) Red Cell Distribution Width 12.5 % (11.5-14.5) Platelet Count 365 x10^3/uL (140-400) Neutrophils (%) (Auto) 89 % (31-73) Lymphocytes (%) (Auto) 5 % (24-48) Monocytes (%) (Auto) 5 % (0-9) Eosinophils (%) (Auto) 0 % (0-3) Basophils (%) (Auto) 1 % (0-3) Neutrophils # (Auto) 22.0 x10^3uL (1.8-7.7) Lymphocytes # (Auto) 1.3 x10^3/uL (1.0-4.8) Monocytes # (Auto) 1.3 x10^3/uL (0.0-1.1) Eosinophils # (Auto) 0.0 x10^3/uL (0.0-0.7) Basophils # (Auto) 0.1 x10^3/uL (0.0-0.2) Segmented Neutrophils % 87 % (35-66) Band Neutrophils % 3 % (0-9) Lymphocytes % 7 % (24-48) Monocytes % 3 % (0-10) Platelet Estimate Adequate (ADEQUATE) Sodium Level 129 mmol/L (136-145) Potassium Level 4.6 mmol/L (3.5-5.1) Chloride Level 92 mmol/L (98-107) Carbon Dioxide Level 25 mmol/L (21-32) Anion Gap 12 (6-14) Blood Urea Nitrogen 8 mg/dL (8-26) Creatinine 0.7 mg/dL (0.7-1.3) Estimated GFR (Cockcroft-Gault) 119.4 BUN/Creatinine Ratio 11 (6-20) Glucose Level 102 mg/dL (70-99) Calcium Level 9.1 mg/dL (8.5-10.1) Total Bilirubin 0.4 mg/dL (0.2-1.0) Aspartate Amino Transf (AST/SGOT) 25 U/L (15-37) Alanine Aminotransferase (ALT/SGPT) 29 U/L (16-63) Alkaline Phosphatase 79 U/L (46-116) Total Protein 7.6 g/dL (6.4-8.2) Albumin 3.6 g/dL (3.4-5.0) Albumin/Globulin Ratio 0.9 (1.0-1.7) Salicylates Level 39.7 mg/dL (2.8-20.0) Salicylate Last Dose Date Unknown Salicylate Last Dose Time Unknown Acetaminophen Level < 2 mcg/ml (10-30) Acetaminophen Last Dose Date Unknown Acetaminophen Last Dose Time Unknown Ethyl Alcohol Level < 10 mg/dL (0-10) O2 Saturation 99 % (92-99) Arterial Blood pH 7.35 (7.35-7.45) Arterial Blood pCO2 at Patient Temp 36 mmHg (35-46) Arterial Blood pO2 at Patient Temp 189 mmHg (75-108) Arterial Blood HCO3 20 mmol/L (21-28) Arterial Blood Base Excess -5 mmol/L (-3-3) Oxyhemoglobin 98.3 % Methemoglobin 0.3 % (0.0-1.9) Carbon Monoxide, Quantitative 0.3 % (0.0-1.9) FiO2 100 Urine Collection Type Unknown Urine Color Yellow Urine Clarity Clear Urine pH 6.5 Urine Specific [place] 1.015 Urine Protein Negative mg/dL (NEG-TRACE) Urine Glucose (UA) Negative mg/dL (NEG) Urine Ketones (Stick) Negative mg/dL (NEG) Urine Blood Negative (NEG) Urine Nitrite Negative (NEG) Urine Bilirubin Negative (NEG) Urine Urobilinogen Dipstick 0.2 mg/dL (0.2 mg/dL) Urine Leukocyte Esterase Negative (NEG) Urine RBC 0 /HPF (0-2) Urine WBC 0 /HPF (0-4) Urine Squamous Epithelial Cells Occ /LPF Urine Amorphous Sediment Present /HPF Urine Bacteria 0 /HPF (0-FEW) Urine Hyaline Casts Occasional /HPF Urine Mucus Mod /LPF Urine Opiates Screen Neg (NEG) Urine Methadone Screen Neg (NEG) Urine Barbiturates Neg (NEG) Urine Phencyclidine Screen Neg (NEG) Urine Amphetamine/Methamphetamine Neg (NEG) Urine Benzodiazepines Screen Neg (NEG) Urine Cocaine Screen Neg (NEG) Urine Cannabinoids Screen Neg (NEG) Urine Ethyl Alcohol Neg (NEG) Test 12/11/18 13:15 Salicylates Level 38.5 mg/dL (2.8-20.0) Salicylate Last Dose Date Unknown Salicylate Last Dose Time Unknown Assessment/Plan Assessment/Plan IMP SUICIDE ATTEMPT SALICYLATE POISONING ACUTE RESP FAILURE MET ENCEPHALOPATHY MET ACIDOSIS AND RESP ALKALOSIS PLAN VOLUME EXPAND PRESSORS NEEDED STOP PROPOFOL IN FAVOR OF VERSED ASA LEVELS Q 3 HOURS GLU AND LYTES CHECK Q 3 HOURS ALKALINIZE URINE WITH HCO3 GTT NO NEED FOR HD AT THIS TIME UPDATED SON AND BROTHER AT BEDSIDE MAY NEED NEURO EVALUATION DONE KETAN SANTAMARIA MD Dec 11, 2018 13:58
[2018-12-11] MEDS: fentaNYL PF VIAL 100 MCG/2 ML VIAL IV PRN ×2 (14:19→16:04)
[2018-12-11] MEDS: MIDAZOLAM 100mg/100ml NS BAG 100 ML IV PRN ×2 (14:20→21:00)
[2018-12-11] MEDS: NOREPINEPHRIN 8MG/250ML PREMIX 250 ML IV PRN (14:41)
[2018-12-11 14:42] LABS: BASE EXCESS ABG 3 mmol/L (-3-3); CORRECTED PCO2 ABG 38 mmHg; CORRECTED PH ABG 7.46; CORRECTED PO2 ABG 125 mmHg; HCO3 ABG 26 mmol/L (21-28); PCO2 ABG 36 mmHg (35-46); PO2 ABG 120 mmHg (75-108); SAT O2 ABG 98 % (92-99)
[2018-12-11 14:45] LABS: FIO2 ABG 60
[2018-12-11 17:23] LABS: ALBUMIN 2.8 g/dL (3.4-5.0); GFR 79.1; MAGNESIUM 2.1 mg/dL (1.8-2.4); PHOSPHORUS 6.8 mg/dL (2.6-4.7); POTASSIUM 4.3 mmol/L (3.5-5.1); TOTAL BILIRUBIN 0.3 mg/dL (0.2-1.0); TOTAL PROTEIN 5.7 g/dL (6.4-8.2)
[2018-12-11 17:26] LABS: SALIC 34.4 mg/dL (2.8-20.0)
--- NOTE | 2018-12-11 18:27 | NUR ---
Wound Care Wound care consult for lacerations to BUE. Pt has multiple self inflicted lacerations to BUE that are stapled and scabbed. Cleansed areas, covered with xeroform and ABD with kerlix gauze. Pt also has abrasion to left neck, painted with skin prep. No other wounds noted at this time. WC will sign off at this time, please reconsult if new wounds develop.
--- NOTE | 2018-12-11 18:44 | CONS ---
DATE OF CONSULTATION: 12/11/2018 ATTENDING PHYSICIAN: Dr. Tolliver. REASON FOR CONSULTATION: The patient seen in pulmonary consultation at the request of Dr. Tolliver for vent management. HISTORY OF PRESENT ILLNESS: The patient is a 48-year-old that presented to the Emergency Department with altered mental status. He has a history of paranoid schizophrenia, previous suicide attempts. He was evaluated in the Emergency Room and found to have salicylate intoxication. His blood pressure was likewise elevated and he had just been placed on a beta-mariely. He took some metoprolol. His salicylate level was 39 in the Emergency Department. He was given sodium bicarbonate and started on sodium bicarbonate drip. His arterial blood gas revealed a pH of 7.35, PaCO2 of 36, pO2 of 189, bicarb of 20. White count was elevated. Electrolytes were noted. Toxicology screen was positive for salicylates intoxication, negative for other substances. His alcohol level was not elevated. Chest x-ray was obtained. CT head and neck and cervical spine were obtained. The cervical spine revealed no acute fractures of the cervical spine, no acute abnormality within the intracranial space. The patient is currently on assist control ventilation, in the ICU receiving IV sodium bicarbonate. PAST MEDICAL HISTORY: Otherwise remarkable for paranoid schizophrenia, recent hypertension, apparently he has had previous suicide attempt. ALLERGIES: No known drug allergies. MEDICATIONS LIST FROM HOME: He was recently on a beta mariely. REVIEW OF SYSTEMS: Unobtainable. PHYSICAL EXAMINATION: GENERAL: The patient was intubated, sedated with Diprivan. VITAL SIGNS: His respiratory rate was elevated. Vital signs were otherwise stable. HEENT: Eyes: The sclerae were nonicteric. NECK: Jugular venous distention was not elevated. No lymphadenopathy. CHEST: Full expansion. LUNGS: Adequate airway flow, no wheezes. CARDIOVASCULAR: Regular rate and rhythm with S1 and S2, no S3. ABDOMEN: Soft, nontender, nondistended. EXTREMITIES: No clubbing, cyanosis or edema. NEUROLOGIC: The patient was sedated on mechanical ventilation. LABORATORY DATA: Labs were reviewed as indicated above. Blood gas was noted. Sodium was low. IMPRESSION: 1. Acute respiratory failure secondary to salicylate intoxication. 2. Beta mariely intoxication. The patient is recently on metoprolol. 3. Metabolic toxic encephalopathy. 4. Hyponatremia. 5. Leukocytosis, suspect reactive. PLAN: 1. Case discussed with Dr. Kaur. He is going to continue IV sodium bicarbonate. Repeat salicylate level, may require hemodialysis. 2. Continue current support. 3. Repeat aspirin level q. 2 hours until it starts to decline. 4. Continue current support. Repeat arterial blood gas. 5. Empiric antibiotics. 6. IV sodium bicarbonate. I do appreciate the privilege in sharing in the patient's care. MAISHA NUNEZ MD DR: ELISEO/kelly JOB#: [id number] / [id number]
--- NOTE | 2018-12-11 18:47 | NUR ---
Order received from Dr. Kaur to maintain Q3hour lab order. Order received to use Magnesium and Potassium electrolyte protocol. Order received to call with elevated salycilate or critical labs only.
[2018-12-11] MEDS: CHLORHEXIDINE 0.12% 15 ML MOUTHWASH. MM SCH (21:00)
[2018-12-11 21:35] LABS: ALBUMIN 2.9 g/dL (3.4-5.0); CALCIUM 7.9 mg/dL (8.5-10.1); CREATININE 1.2 mg/dL (0.7-1.3); GFR 64.1; PHOSPHORUS 5.3 mg/dL (2.6-4.7); POTASSIUM 3.3 mmol/L (3.5-5.1); SALIC 34.8 mg/dL (2.8-20.0); TOTAL BILIRUBIN 0.4 mg/dL (0.2-1.0); TOTAL PROTEIN 5.7 g/dL (6.4-8.2)
[2018-12-11] MEDS: POTASSIUM CHLORIDE 10MEQ 100 ML IV SCH ×2 (22:04→23:03)
[2018-12-12] VITALS (56 sets, daily range): BP systolic 86–171; BP diastolic 52–89
[2018-12-12] MEDS: POTASSIUM CHLORIDE 10MEQ 100 ML IV SCH ×14 (00:02→14:45)
[2018-12-12 00:49] LABS: SALIC 33.1 mg/dL (2.8-20.0)
[2018-12-12 00:52] LABS: ALBUMIN 2.5 g/dL (3.4-5.0); ALBUMIN/GLOBULIN RATIO 0.8 (1.0-1.7); CALCIUM 7.6 mg/dL (8.5-10.1); CREATININE 1.2 mg/dL (0.7-1.3); GFR 64.1; PHOSPHORUS 4.5 mg/dL (2.6-4.7); POTASSIUM 3.2 mmol/L (3.5-5.1); TOTAL BILIRUBIN 0.4 mg/dL (0.2-1.0); TOTAL PROTEIN 5.5 g/dL (6.4-8.2)
[2018-12-12] MEDS: SODIUM BICARBONATE VIAL 100 MEQ in IV DEXTROSE 5% 1,000 ML IV SCH ×2 (03:03→09:57)
[2018-12-12 03:14] LABS: ALBUMIN 2.6 g/dL (3.4-5.0); CALCIUM 7.5 mg/dL (8.5-10.1); CREATININE 1.2 mg/dL (0.7-1.3); GFR 64.1; MAGNESIUM 1.9 mg/dL (1.8-2.4); PHOSPHORUS 4.1 mg/dL (2.6-4.7); POTASSIUM 3.2 mmol/L (3.5-5.1); TOTAL BILIRUBIN 0.4 mg/dL (0.2-1.0); TOTAL PROTEIN 5.3 g/dL (6.4-8.2)
[2018-12-12 03:19] LABS: SALIC 29.8 mg/dL (2.8-20.0)
[2018-12-12] MEDS: NOREPINEPHRIN 8MG/250ML PREMIX 250 ML IV PRN (04:04)
[2018-12-12 06:28] LABS: SALIC 25.6 mg/dL (2.8-20.0)
[2018-12-12 06:29] LABS: ALBUMIN 2.4 g/dL (3.4-5.0); ALBUMIN/GLOBULIN RATIO 0.9 (1.0-1.7); CALCIUM 7.5 mg/dL (8.5-10.1); CREATININE 1.1 mg/dL (0.7-1.3); GFR 70.9; MAGNESIUM 2.1 mg/dL (1.8-2.4); PHOSPHORUS 3.1 mg/dL (2.6-4.7); TOTAL BILIRUBIN 0.4 mg/dL (0.2-1.0); TOTAL PROTEIN 5.2 g/dL (6.4-8.2)
[2018-12-12 06:30] LABS: POTASSIUM 2.9 mmol/L (3.5-5.1)
--- NOTE | 2018-12-12 08:00 | NUR ---
Pt sedated on fent and Versed but did have a monment where he opened eyes and SANTOS and followed simple command. Remains on Levo to keep MAP>65. ETTube intact wioth min secretions. Low grade fever. Good UO. Bicarb gtt. Levo thru peripheral IV intact, soft appears patent. Will monitor closely . No family here at this time.
--- NOTE | 2018-12-12 08:05 | NUR ---
SS following up on referral for "request PAT team." SS contacted pt's RN and was notified that pt is not stable at this time to meet with the PAT team. Pt currently on the vent. Williams and Louis from the PAT team notified that pt will need to be seen once stable enough. SS will continue to follow for discharge planning.
--- NOTE | 2018-12-12 08:12 | RAD ---
Chest radiograph 12/12/2018 6:30 AM INDICATION: Respiratory failure COMPARISON: December 11, 2018 TECHNIQUE: Portable frontal semi-upright view of the chest is provided. FINDINGS: The cardiomediastinal silhouette is within normal limits. Nasogastric tube has been advanced with the side port below the level of the gastroesophageal junction. Endotracheal tube is in similar position. There are no pleural effusions. There is no pulmonary vascular congestion. There is no pneumothorax. The lungs are clear. No significant osseous abnormality is identified. IMPRESSION: Nasogastric tube and endotracheal tube are in appropriate position. No acute cardiopulmonary process. Electronically signed by: Manuela Pagan MD (12/12/2018 8:07 AM) [id number]
[2018-12-12 08:35] LABS: BASE EXCESS ABG 12 mmol/L (-3-3); HCO3 ABG 34 mmol/L (21-28); PCO2 ABG 38 mmHg (35-46); PO2 ABG 87 mmHg (75-108); SAT O2 ABG 97 % (92-99)
[2018-12-12 08:39] LABS: FIO2 ABG 40
[2018-12-12] MEDS: CHLORHEXIDINE 0.12% 15 ML MOUTHWASH. MM SCH (09:00)
--- NOTE | 2018-12-12 09:18 | PDOC ---
PULMONARY PROGRESS NOTES Vitals Vital Signs Date Time Temp Pulse Resp B/P (MAP) Pulse Ox O2 Delivery O2 Flow Rate FiO2 12/12/18 07:42 100 12/12/18 07:00 74 20 97/56 (70) Ventilator 12/12/18 04:00 98.5 98.5 12/11/18 14:19 2.0 Labs Laboratory Tests Test 12/11/18 10:00 12/11/18 10:03 12/11/18 10:19 12/11/18 10:22 Lactic Acid Level 2.1 mmol/L (0.4-2.0) White Blood Count 24.8 x10^3/uL (4.0-11.0) Red Blood Count 5.52 x10^6/uL (4.30-5.70) Hemoglobin 16.3 g/dL (13.0-17.5) Hematocrit 47.3 % (39.0-53.0) Mean Corpuscular Volume 86 fL (79-100) Mean Corpuscular Hemoglobin 30 pg (25-35) Mean Corpuscular Hemoglobin Concent 34 g/dL (31-37) Red Cell Distribution Width 12.5 % (11.5-14.5) Platelet Count 365 x10^3/uL (140-400) Neutrophils (%) (Auto) 89 % (31-73) Lymphocytes (%) (Auto) 5 % (24-48) Monocytes (%) (Auto) 5 % (0-9) Eosinophils (%) (Auto) 0 % (0-3) Basophils (%) (Auto) 1 % (0-3) Neutrophils # (Auto) 22.0 x10^3uL (1.8-7.7) Lymphocytes # (Auto) 1.3 x10^3/uL (1.0-4.8) Monocytes # (Auto) 1.3 x10^3/uL (0.0-1.1) Eosinophils # (Auto) 0.0 x10^3/uL (0.0-0.7) Basophils # (Auto) 0.1 x10^3/uL (0.0-0.2) Segmented Neutrophils % 87 % (35-66) Band Neutrophils % 3 % (0-9) Lymphocytes % 7 % (24-48) Monocytes % 3 % (0-10) Platelet Estimate Adequate (ADEQUATE) Sodium Level 129 mmol/L (136-145) Potassium Level 4.6 mmol/L (3.5-5.1) Chloride Level 92 mmol/L (98-107) Carbon Dioxide Level 25 mmol/L (21-32) Anion Gap 12 (6-14) Blood Urea Nitrogen 8 mg/dL (8-26) Creatinine 0.7 mg/dL (0.7-1.3) Estimated GFR (Cockcroft-Gault) 119.4 BUN/Creatinine Ratio 11 (6-20) Glucose Level 102 mg/dL (70-99) Calcium Level 9.1 mg/dL (8.5-10.1) Total Bilirubin 0.4 mg/dL (0.2-1.0) Aspartate Amino Transf (AST/SGOT) 25 U/L (15-37) Alanine Aminotransferase (ALT/SGPT) 29 U/L (16-63) Alkaline Phosphatase 79 U/L (46-116) Total Protein 7.6 g/dL (6.4-8.2) Albumin 3.6 g/dL (3.4-5.0) Albumin/Globulin Ratio 0.9 (1.0-1.7) Salicylates Level 39.7 mg/dL (2.8-20.0) Salicylate Last Dose Date Unknown Salicylate Last Dose Time Unknown Acetaminophen Level < 2 mcg/ml (10-30) Acetaminophen Last Dose Date Unknown Acetaminophen Last Dose Time Unknown Ethyl Alcohol Level < 10 mg/dL (0-10) O2 Saturation 99 % (92-99) Arterial Blood pH 7.35 (7.35-7.45) Arterial Blood pCO2 at Patient Temp 36 mmHg (35-46) Arterial Blood pO2 at Patient Temp 189 mmHg (75-108) Arterial Blood HCO3 20 mmol/L (21-28) Arterial Blood Base Excess -5 mmol/L (-3-3) Oxyhemoglobin 98.3 % Methemoglobin 0.3 % (0.0-1.9) Carbon Monoxide, Quantitative 0.3 % (0.0-1.9) FiO2 100 Urine Collection Type Unknown Urine Color Yellow Urine Clarity Clear Urine pH 6.5 Urine Specific [place] 1.015 Urine Protein Negative mg/dL (NEG-TRACE) Urine Glucose (UA) Negative mg/dL (NEG) Urine Ketones (Stick) Negative mg/dL (NEG) Urine Blood Negative (NEG) Urine Nitrite Negative (NEG) Urine Bilirubin Negative (NEG) Urine Urobilinogen Dipstick 0.2 mg/dL (0.2 mg/dL) Urine Leukocyte Esterase Negative (NEG) Urine RBC 0 /HPF (0-2) Urine WBC 0 /HPF (0-4) Urine Squamous Epithelial Cells Occ /LPF Urine Amorphous Sediment Present /HPF Urine Bacteria 0 /HPF (0-FEW) Urine Hyaline Casts Occasional /HPF Urine Mucus Mod /LPF Urine Opiates Screen Neg (NEG) Urine Methadone Screen Neg (NEG) Urine Barbiturates Neg (NEG) Urine Phencyclidine Screen Neg (NEG) Urine Amphetamine/Methamphetamine Neg (NEG) Urine Benzodiazepines Screen Neg (NEG) Urine Cocaine Screen Neg (NEG) Urine Cannabinoids Screen Neg (NEG) Urine Ethyl Alcohol Neg (NEG) Test 12/11/18 13:15 12/11/18 14:30 12/11/18 17:00 12/11/18 19:29 Lactic Acid Level 1.3 mmol/L (0.4-2.0) Salicylates Level 38.5 mg/dL (2.8-20.0) 34.4 mg/dL (2.8-20.0) Salicylate Last Dose Date Unknown 12/11/18 Salicylate Last Dose Time Unknown 0800 O2 Saturation 98 % (92-99) Arterial Blood pH 7.47 (7.35-7.45) Arterial Blood pH (Temp corrected) 7.46 Arterial Blood pCO2 at Patient Temp 36 mmHg (35-46) Arterial Blood pCO2 (Temp correct) 38 mmHg Arterial Blood pO2 at Patient Temp 120 mmHg (75-108) Arterial Blood pO2 (Temp corrected) 125 mmHg Arterial Blood HCO3 26 mmol/L (21-28) Arterial Blood Base Excess 3 mmol/L (-3-3) FiO2 60 Sodium Level 137 mmol/L (136-145) Potassium Level 4.3 mmol/L (3.5-5.1) Chloride Level 96 mmol/L (98-107) Carbon Dioxide Level 34 mmol/L (21-32) Anion Gap 7 (6-14) Blood Urea Nitrogen 14 mg/dL (8-26) Creatinine 1.0 mg/dL (0.7-1.3) Estimated GFR (Cockcroft-Gault) 79.1 BUN/Creatinine Ratio 14 (6-20) Glucose Level 107 mg/dL (70-99) Calcium Level 8.0 mg/dL (8.5-10.1) Phosphorus Level 6.8 mg/dL (2.6-4.7) Magnesium Level 2.1 mg/dL (1.8-2.4) Total Bilirubin 0.3 mg/dL (0.2-1.0) Aspartate Amino Transf (AST/SGOT) 26 U/L (15-37) Alanine Aminotransferase (ALT/SGPT) 24 U/L (16-63) Alkaline Phosphatase 63 U/L (46-116) Total Protein 5.7 g/dL (6.4-8.2) Albumin 2.8 g/dL (3.4-5.0) Albumin/Globulin Ratio 1.0 (1.0-1.7) Glucose (Fingerstick) 80 mg/dL (70-99) Test 12/11/18 21:05 12/11/18 21:17 12/12/18 00:10 12/12/18 02:55 Sodium Level 138 mmol/L (136-145) 137 mmol/L (136-145) 137 mmol/L (136-145) Potassium Level 3.3 mmol/L (3.5-5.1) 3.2 mmol/L (3.5-5.1) 3.2 mmol/L (3.5-5.1) Chloride Level 97 mmol/L (98-107) 96 mmol/L (98-107) 96 mmol/L (98-107) Carbon Dioxide Level 33 mmol/L (21-32) 35 mmol/L (21-32) 35 mmol/L (21-32) Anion Gap 8 (6-14) 6 (6-14) 6 (6-14) Blood Urea Nitrogen 14 mg/dL (8-26) 16 mg/dL (8-26) 15 mg/dL (8-26) Creatinine 1.2 mg/dL (0.7-1.3) 1.2 mg/dL (0.7-1.3) 1.2 mg/dL (0.7-1.3) Estimated GFR (Cockcroft-Gault) 64.1 64.1 64.1 BUN/Creatinine Ratio 12 (6-20) 13 (6-20) 13 (6-20) Glucose Level 114 mg/dL (70-99) 104 mg/dL (70-99) 108 mg/dL (70-99) Calcium Level 7.9 mg/dL (8.5-10.1) 7.6 mg/dL (8.5-10.1) 7.5 mg/dL (8.5-10.1) Phosphorus Level 5.3 mg/dL (2.6-4.7) 4.5 mg/dL (2.6-4.7) 4.1 mg/dL (2.6-4.7) Magnesium Level 2.0 mg/dL (1.8-2.4) 2.0 mg/dL (1.8-2.4) 1.9 mg/dL (1.8-2.4) Total Bilirubin 0.4 mg/dL (0.2-1.0) 0.4 mg/dL (0.2-1.0) 0.4 mg/dL (0.2-1.0) Aspartate Amino Transf (AST/SGOT) 27 U/L (15-37) 29 U/L (15-37) 36 U/L (15-37) Alanine Aminotransferase (ALT/SGPT) 25 U/L (16-63) 23 U/L (16-63) 23 U/L (16-63) Alkaline Phosphatase 61 U/L (46-116) 55 U/L (46-116) 57 U/L (46-116) Total Protein 5.7 g/dL (6.4-8.2) 5.5 g/dL (6.4-8.2) 5.3 g/dL (6.4-8.2) Albumin 2.9 g/dL (3.4-5.0) 2.5 g/dL (3.4-5.0) 2.6 g/dL (3.4-5.0) Albumin/Globulin Ratio 1.0 (1.0-1.7) 0.8 (1.0-1.7) 1.0 (1.0-1.7) Salicylates Level 34.8 mg/dL (2.8-20.0) 33.1 mg/dL (2.8-20.0) 29.8 mg/dL (2.8-20.0) Salicylate Last Dose Date 12/11/18 Salicylate Last Dose Time 0800 Glucose (Fingerstick) 94 mg/dL (70-99) Test 12/12/18 05:45 12/12/18 08:00 Sodium Level 136 mmol/L (136-145) Potassium Level 2.9 mmol/L (3.5-5.1) Chloride Level 96 mmol/L (98-107) Carbon Dioxide Level 35 mmol/L (21-32) Anion Gap 5 (6-14) Blood Urea Nitrogen 16 mg/dL (8-26) Creatinine 1.1 mg/dL (0.7-1.3) Estimated GFR (Cockcroft-Gault) 70.9 BUN/Creatinine Ratio 15 (6-20) Glucose Level 113 mg/dL (70-99) Calcium Level 7.5 mg/dL (8.5-10.1) Phosphorus Level 3.1 mg/dL (2.6-4.7) Magnesium Level 2.1 mg/dL (1.8-2.4) Total Bilirubin 0.4 mg/dL (0.2-1.0) Aspartate Amino Transf (AST/SGOT) 39 U/L (15-37) Alanine Aminotransferase (ALT/SGPT) 23 U/L (16-63) Alkaline Phosphatase 54 U/L (46-116) Total Protein 5.2 g/dL (6.4-8.2) Albumin 2.4 g/dL (3.4-5.0) Albumin/Globulin Ratio 0.9 (1.0-1.7) Salicylates Level 25.6 mg/dL (2.8-20.0) Salicylate Last Dose Date 12/11/18 Salicylate Last Dose Time 0800 O2 Saturation 97 % (92-99) Arterial Blood pH 7.58 (7.35-7.45) Arterial Blood pCO2 at Patient Temp 38 mmHg (35-46) Arterial Blood pO2 at Patient Temp 87 mmHg (75-108) Arterial Blood HCO3 34 mmol/L (21-28) Arterial Blood Base Excess 12 mmol/L (-3-3) FiO2 40 Laboratory Tests Test 12/11/18 10:00 12/11/18 10:03 12/11/18 10:19 12/11/18 10:22 Lactic Acid Level 2.1 mmol/L (0.4-2.0) White Blood Count 24.8 x10^3/uL (4.0-11.0) Red Blood Count 5.52 x10^6/uL (4.30-5.70) Hemoglobin 16.3 g/dL (13.0-17.5) Hematocrit 47.3 % (39.0-53.0) Mean Corpuscular Volume 86 fL (79-100) Mean Corpuscular Hemoglobin 30 pg (25-35) Mean Corpuscular Hemoglobin Concent 34 g/dL (31-37) Red Cell Distribution Width 12.5 % (11.5-14.5) Platelet Count 365 x10^3/uL (140-400) Neutrophils (%) (Auto) 89 % (31-73) Lymphocytes (%) (Auto) 5 % (24-48) Monocytes (%) (Auto) 5 % (0-9) Eosinophils (%) (Auto) 0 % (0-3) Basophils (%) (Auto) 1 % (0-3) Neutrophils # (Auto) 22.0 x10^3uL (1.8-7.7) Lymphocytes # (Auto) 1.3 x10^3/uL (1.0-4.8) Monocytes # (Auto) 1.3 x10^3/uL (0.0-1.1) Eosinophils # (Auto) 0.0 x10^3/uL (0.0-0.7) Basophils # (Auto) 0.1 x10^3/uL (0.0-0.2) Segmented Neutrophils % 87 % (35-66) Band Neutrophils % 3 % (0-9) Lymphocytes % 7 % (24-48) Monocytes % 3 % (0-10) Platelet Estimate Adequate (ADEQUATE) Sodium Level 129 mmol/L (136-145) Potassium Level 4.6 mmol/L (3.5-5.1) Chloride Level 92 mmol/L (98-107) Carbon Dioxide Level 25 mmol/L (21-32) Anion Gap 12 (6-14) Blood Urea Nitrogen 8 mg/dL (8-26) Creatinine 0.7 mg/dL (0.7-1.3) Estimated GFR (Cockcroft-Gault) 119.4 BUN/Creatinine Ratio 11 (6-20) Glucose Level 102 mg/dL (70-99) Calcium Level 9.1 mg/dL (8.5-10.1) Total Bilirubin 0.4 mg/dL (0.2-1.0) Aspartate Amino Transf (AST/SGOT) 25 U/L (15-37) Alanine Aminotransferase (ALT/SGPT) 29 U/L (16-63) Alkaline Phosphatase 79 U/L (46-116) Total Protein 7.6 g/dL (6.4-8.2) Albumin 3.6 g/dL (3.4-5.0) Albumin/Globulin Ratio 0.9 (1.0-1.7) Salicylates Level 39.7 mg/dL (2.8-20.0) Salicylate Last Dose Date Unknown Salicylate Last Dose Time Unknown Acetaminophen Level < 2 mcg/ml (10-30) Acetaminophen Last Dose Date Unknown Acetaminophen Last Dose Time Unknown Ethyl Alcohol Level < 10 mg/dL (0-10) O2 Saturation 99 % (92-99) Arterial Blood pH 7.35 (7.35-7.45) Arterial Blood pCO2 at Patient Temp 36 mmHg (35-46) Arterial Blood pO2 at Patient Temp 189 mmHg (75-108) Arterial Blood HCO3 20 mmol/L (21-28) Arterial Blood Base Excess -5 mmol/L (-3-3) Oxyhemoglobin 98.3 % Methemoglobin 0.3 % (0.0-1.9) Carbon Monoxide, Quantitative 0.3 % (0.0-1.9) FiO2 100 Urine Collection Type Unknown Urine Color Yellow Urine Clarity Clear Urine pH 6.5 Urine Specific [place] 1.015 Urine Protein Negative mg/dL (NEG-TRACE) Urine Glucose (UA) Negative mg/dL (NEG) Urine Ketones (Stick) Negative mg/dL (NEG) Urine Blood Negative (NEG) Urine Nitrite Negative (NEG) Urine Bilirubin Negative (NEG) Urine Urobilinogen Dipstick 0.2 mg/dL (0.2 mg/dL) Urine Leukocyte Esterase Negative (NEG) Urine RBC 0 /HPF (0-2) Urine WBC 0 /HPF (0-4) Urine Squamous Epithelial Cells Occ /LPF Urine Amorphous Sediment Present /HPF Urine Bacteria 0 /HPF (0-FEW) Urine Hyaline Casts Occasional /HPF Urine Mucus Mod /LPF Urine Opiates Screen Neg (NEG) Urine Methadone Screen Neg (NEG) Urine Barbiturates Neg (NEG) Urine Phencyclidine Screen Neg (NEG) Urine Amphetamine/Methamphetamine Neg (NEG) Urine Benzodiazepines Screen Neg (NEG) Urine Cocaine Screen Neg (NEG) Urine Cannabinoids Screen Neg (NEG) Urine Ethyl Alcohol Neg (NEG) Test 12/11/18 13:15 12/11/18 14:30 12/11/18 17:00 12/11/18 19:29 Lactic Acid Level 1.3 mmol/L (0.4-2.0) Salicylates Level 38.5 mg/dL (2.8-20.0) 34.4 mg/dL (2.8-20.0) Salicylate Last Dose Date Unknown 12/11/18 Salicylate Last Dose Time Unknown 0800 O2 Saturation 98 % (92-99) Arterial Blood pH 7.47 (7.35-7.45) Arterial Blood pH (Temp corrected) 7.46 Arterial Blood pCO2 at Patient Temp 36 mmHg (35-46) Arterial Blood pCO2 (Temp correct) 38 mmHg Arterial Blood pO2 at Patient Temp 120 mmHg (75-108) Arterial Blood pO2 (Temp corrected) 125 mmHg Arterial Blood HCO3 26 mmol/L (21-28) Arterial Blood Base Excess 3 mmol/L (-3-3) FiO2 60 Sodium Level 137 mmol/L (136-145) Potassium Level 4.3 mmol/L (3.5-5.1) Chloride Level 96 mmol/L (98-107) Carbon Dioxide Level 34 mmol/L (21-32) Anion Gap 7 (6-14) Blood Urea Nitrogen 14 mg/dL (8-26) Creatinine 1.0 mg/dL (0.7-1.3) Estimated GFR (Cockcroft-Gault) 79.1 BUN/Creatinine Ratio 14 (6-20) Glucose Level 107 mg/dL (70-99) Calcium Level 8.0 mg/dL (8.5-10.1) Phosphorus Level 6.8 mg/dL (2.6-4.7) Magnesium Level 2.1 mg/dL (1.8-2.4) Total Bilirubin 0.3 mg/dL (0.2-1.0) Aspartate Amino Transf (AST/SGOT) 26 U/L (15-37) Alanine Aminotransferase (ALT/SGPT) 24 U/L (16-63) Alkaline Phosphatase 63 U/L (46-116) Total Protein 5.7 g/dL (6.4-8.2) Albumin 2.8 g/dL (3.4-5.0) Albumin/Globulin Ratio 1.0 (1.0-1.7) Glucose (Fingerstick) 80 mg/dL (70-99) Test 12/11/18 21:05 12/11/18 21:17 12/12/18 00:10 12/12/18 02:55 Sodium Level 138 mmol/L (136-145) 137 mmol/L (136-145) 137 mmol/L (136-145) Potassium Level 3.3 mmol/L (3.5-5.1) 3.2 mmol/L (3.5-5.1) 3.2 mmol/L (3.5-5.1) Chloride Level 97 mmol/L (98-107) 96 mmol/L (98-107) 96 mmol/L (98-107) Carbon Dioxide Level 33 mmol/L (21-32) 35 mmol/L (21-32) 35 mmol/L (21-32) Anion Gap 8 (6-14) 6 (6-14) 6 (6-14) Blood Urea Nitrogen 14 mg/dL (8-26) 16 mg/dL (8-26) 15 mg/dL (8-26) Creatinine 1.2 mg/dL (0.7-1.3) 1.2 mg/dL (0.7-1.3) 1.2 mg/dL (0.7-1.3) Estimated GFR (Cockcroft-Gault) 64.1 64.1 64.1 BUN/Creatinine Ratio 12 (6-20) 13 (6-20) 13 (6-20) Glucose Level 114 mg/dL (70-99) 104 mg/dL (70-99) 108 mg/dL (70-99) Calcium Level 7.9 mg/dL (8.5-10.1) 7.6 mg/dL (8.5-10.1) 7.5 mg/dL (8.5-10.1) Phosphorus Level 5.3 mg/dL (2.6-4.7) 4.5 mg/dL (2.6-4.7) 4.1 mg/dL (2.6-4.7) Magnesium Level 2.0 mg/dL (1.8-2.4) 2.0 mg/dL (1.8-2.4) 1.9 mg/dL (1.8-2.4) Total Bilirubin 0.4 mg/dL (0.2-1.0) 0.4 mg/dL (0.2-1.0) 0.4 mg/dL (0.2-1.0) Aspartate Amino Transf (AST/SGOT) 27 U/L (15-37) 29 U/L (15-37) 36 U/L (15-37) Alanine Aminotransferase (ALT/SGPT) 25 U/L (16-63) 23 U/L (16-63) 23 U/L (16-63) Alkaline Phosphatase 61 U/L (46-116) 55 U/L (46-116) 57 U/L (46-116) Total Protein 5.7 g/dL (6.4-8.2) 5.5 g/dL (6.4-8.2) 5.3 g/dL (6.4-8.2) Albumin 2.9 g/dL (3.4-5.0) 2.5 g/dL (3.4-5.0) 2.6 g/dL (3.4-5.0) Albumin/Globulin Ratio 1.0 (1.0-1.7) 0.8 (1.0-1.7) 1.0 (1.0-1.7) Salicylates Level 34.8 mg/dL (2.8-20.0) 33.1 mg/dL (2.8-20.0) 29.8 mg/dL (2.8-20.0) Salicylate Last Dose Date 12/11/18 Salicylate Last Dose Time 0800 Glucose (Fingerstick) 94 mg/dL (70-99) Test 12/12/18 05:45 12/12/18 08:00 Sodium Level 136 mmol/L (136-145) Potassium Level 2.9 mmol/L (3.5-5.1) Chloride Level 96 mmol/L (98-107) Carbon Dioxide Level 35 mmol/L (21-32) Anion Gap 5 (6-14) Blood Urea Nitrogen 16 mg/dL (8-26) Creatinine 1.1 mg/dL (0.7-1.3) Estimated GFR (Cockcroft-Gault) 70.9 BUN/Creatinine Ratio 15 (6-20) Glucose Level 113 mg/dL (70-99) Calcium Level 7.5 mg/dL (8.5-10.1) Phosphorus Level 3.1 mg/dL (2.6-4.7) Magnesium Level 2.1 mg/dL (1.8-2.4) Total Bilirubin 0.4 mg/dL (0.2-1.0) Aspartate Amino Transf (AST/SGOT) 39 U/L (15-37) Alanine Aminotransferase (ALT/SGPT) 23 U/L (16-63) Alkaline Phosphatase 54 U/L (46-116) Total Protein 5.2 g/dL (6.4-8.2) Albumin 2.4 g/dL (3.4-5.0) Albumin/Globulin Ratio 0.9 (1.0-1.7) Salicylates Level 25.6 mg/dL (2.8-20.0) Salicylate Last Dose Date 12/11/18 Salicylate Last Dose Time 0800 O2 Saturation 97 % (92-99) Arterial Blood pH 7.58 (7.35-7.45) Arterial Blood pCO2 at Patient Temp 38 mmHg (35-46) Arterial Blood pO2 at Patient Temp 87 mmHg (75-108) Arterial Blood HCO3 34 mmol/L (21-28) Arterial Blood Base Excess 12 mmol/L (-3-3) FiO2 40 Medications Active Scripts Medications Dose Route/Sig Max Daily Dose Days Date Category Keflex (Cephalexin) 500 Mg Capsule 1 Cap PO QID 7 06/20/18 Rx Impression . IMPRESSION: 1. Acute respiratory failure secondary to salicylate intoxication. 2. Beta mariely intoxication. The patient is recently on metoprolol. 3. Metabolic toxic encephalopathy. 4. Hyponatremia. 5. Leukocytosis, suspect reactive. Plan . D/W DR SANTAMARIA WILL D/C NAHCO3 DRIP AND D/C SEDATION WILL EVALUATE FOR POSSIBLE D/C 1. Case discussed with Dr. Santamaria. He is going to continue IV sodium bicarbonate. Repeat salicylate level, may require hemodialysis. 2. Continue current support. 3. Repeat aspirin level q. 2 hours until it starts to decline. 4. Continue current support. Repeat arterial blood gas. 5. Empiric antibiotics. 6. IV sodium bicarbonate. MAISHA NUNEZ MD Dec 12, 2018 09:18
[2018-12-12] MEDS: MIDAZOLAM 100mg/100ml NS BAG 100 ML IV PRN ×2 (09:20→09:38)
[2018-12-12 09:39] LABS: SALIC 21.9 mg/dL (2.8-20.0)
[2018-12-12 09:40] LABS: ALBUMIN 2.4 g/dL (3.4-5.0); ALBUMIN/GLOBULIN RATIO 0.9 (1.0-1.7); CALCIUM 7.5 mg/dL (8.5-10.1); GFR 79.1; MAGNESIUM 2.1 mg/dL (1.8-2.4); PHOSPHORUS 2.7 mg/dL (2.6-4.7); TOTAL BILIRUBIN 0.4 mg/dL (0.2-1.0); TOTAL PROTEIN 5.2 g/dL (6.4-8.2)
[2018-12-12 09:42] LABS: POTASSIUM 2.7 mmol/L (3.5-5.1)
[2018-12-12 09:53] LABS: BASO # 0.1 x10^3/uL (0.0-0.2); BASO % 1 % (0-3); EOS # 0.2 x10^3/uL (0.0-0.7); EOS % 2 % (0-3); HEMATOCRIT 40.3 % (39.0-53.0); HEMOGLOBIN 13.5 g/dL (13.0-17.5); LYMPH # 2.1 x10^3/uL (1.0-4.8); LYMPH % 13 % (24-48); MEAN CORPUSCULAR HEMOGLOBIN 29 pg (25-35); MEAN CORPUSCULAR HGB CONC 33 g/dL (31-37); MEAN CORPUSCULAR VOLUME 86 fL (79-100); MONO # 1.6 x10^3/uL (0.0-1.1); MONO % 10 % (0-9); NEUT # 12.2 x10^3uL (1.8-7.7); NEUT % 75 % (31-73); PLATELET COUNT 267 x10^3/uL (140-400); RED BLOOD COUNT 4.72 x10^6/uL (4.30-5.70); RED CELL DISTRIBUTION WIDTH 12.6 % (11.5-14.5); WHITE BLOOD COUNT 16.3 x10^3/uL (4.0-11.0)
--- NOTE | 2018-12-12 10:45 | PDOC ---
PROGRESS NOTES History of Present Illness History of Present Illness ASSESSMENT AND PLAN: Suicidal ideation attempt at hanginG self, slitting his wrist probable aspirin overdose . HX ALCOHOL ABUSE, FAMILY STATES HE DRINKS A LOT DRINKS OFTEN admitted to the ICU // vent. consult Pulmonary consult Nephrology regarding the aspirin overdose. alkalinize urine with sodium bicarbonate. Frequent labs. DVT prophylaxis. Full code D/C BICARB DRIP psychiatric evaluation Prognosis is extremely guarded at best. Total time on this critically ill patient 37 minutes. Vitals Vitals Vital Signs Date Time Temp Pulse Resp B/P (MAP) Pulse Ox O2 Delivery O2 Flow Rate FiO2 12/12/18 10:24 20 100 Ventilator 12/12/18 07:00 74 97/56 (70) 12/12/18 04:00 98.5 98.5 12/11/18 14:19 2.0 Physical Exam Physical Exam HEART: Tachy S1, S2. LUNGS: Coarse. ABDOMEN: Soft and distended. EXTREMITIES: Trace edema. blood on the bottom of his feet, hands and under his nails. The wrist has been slit on the right and the left. ENDOCRINE: No thyromegaly. LYMPHATICS: No cervical nodes. HEMATOPOIETIC: He has bruising on his neck. General: Other ( ON VENT, SEDATED) Heart: Regular rate, Normal S1, Normal S2, No murmurs Lungs: Other (DIMINISHED) Abdomen: Normal bowel sounds, Soft, Other Extremities: No clubbing, No cyanosis Skin: No breakdown Labs LABS Laboratory Tests Test 12/11/18 13:15 12/11/18 14:30 12/11/18 17:00 12/11/18 19:29 Lactic Acid Level 1.3 mmol/L (0.4-2.0) Salicylates Level 38.5 mg/dL (2.8-20.0) 34.4 mg/dL (2.8-20.0) Salicylate Last Dose Date Unknown 12/11/18 Salicylate Last Dose Time Unknown 0800 O2 Saturation 98 % (92-99) Arterial Blood pH 7.47 (7.35-7.45) Arterial Blood pH (Temp corrected) 7.46 Arterial Blood pCO2 at Patient Temp 36 mmHg (35-46) Arterial Blood pCO2 (Temp correct) 38 mmHg Arterial Blood pO2 at Patient Temp 120 mmHg (75-108) Arterial Blood pO2 (Temp corrected) 125 mmHg Arterial Blood HCO3 26 mmol/L (21-28) Arterial Blood Base Excess 3 mmol/L (-3-3) FiO2 60 Sodium Level 137 mmol/L (136-145) Potassium Level 4.3 mmol/L (3.5-5.1) Chloride Level 96 mmol/L (98-107) Carbon Dioxide Level 34 mmol/L (21-32) Anion Gap 7 (6-14) Blood Urea Nitrogen 14 mg/dL (8-26) Creatinine 1.0 mg/dL (0.7-1.3) Estimated GFR (Cockcroft-Gault) 79.1 BUN/Creatinine Ratio 14 (6-20) Glucose Level 107 mg/dL (70-99) Calcium Level 8.0 mg/dL (8.5-10.1) Phosphorus Level 6.8 mg/dL (2.6-4.7) Magnesium Level 2.1 mg/dL (1.8-2.4) Total Bilirubin 0.3 mg/dL (0.2-1.0) Aspartate Amino Transf (AST/SGOT) 26 U/L (15-37) Alanine Aminotransferase (ALT/SGPT) 24 U/L (16-63) Alkaline Phosphatase 63 U/L (46-116) Total Protein 5.7 g/dL (6.4-8.2) Albumin 2.8 g/dL (3.4-5.0) Albumin/Globulin Ratio 1.0 (1.0-1.7) Glucose (Fingerstick) 80 mg/dL (70-99) Test 12/11/18 21:05 12/11/18 21:17 12/12/18 00:10 12/12/18 02:55 Sodium Level 138 mmol/L (136-145) 137 mmol/L (136-145) 137 mmol/L (136-145) Potassium Level 3.3 mmol/L (3.5-5.1) 3.2 mmol/L (3.5-5.1) 3.2 mmol/L (3.5-5.1) Chloride Level 97 mmol/L (98-107) 96 mmol/L (98-107) 96 mmol/L (98-107) Carbon Dioxide Level 33 mmol/L (21-32) 35 mmol/L (21-32) 35 mmol/L (21-32) Anion Gap 8 (6-14) 6 (6-14) 6 (6-14) Blood Urea Nitrogen 14 mg/dL (8-26) 16 mg/dL (8-26) 15 mg/dL (8-26) Creatinine 1.2 mg/dL (0.7-1.3) 1.2 mg/dL (0.7-1.3) 1.2 mg/dL (0.7-1.3) Estimated GFR (Cockcroft-Gault) 64.1 64.1 64.1 BUN/Creatinine Ratio 12 (6-20) 13 (6-20) 13 (6-20) Glucose Level 114 mg/dL (70-99) 104 mg/dL (70-99) 108 mg/dL (70-99) Calcium Level 7.9 mg/dL (8.5-10.1) 7.6 mg/dL (8.5-10.1) 7.5 mg/dL (8.5-10.1) Phosphorus Level 5.3 mg/dL (2.6-4.7) 4.5 mg/dL (2.6-4.7) 4.1 mg/dL (2.6-4.7) Magnesium Level 2.0 mg/dL (1.8-2.4) 2.0 mg/dL (1.8-2.4) 1.9 mg/dL (1.8-2.4) Total Bilirubin 0.4 mg/dL (0.2-1.0) 0.4 mg/dL (0.2-1.0) 0.4 mg/dL (0.2-1.0) Aspartate Amino Transf (AST/SGOT) 27 U/L (15-37) 29 U/L (15-37) 36 U/L (15-37) Alanine Aminotransferase (ALT/SGPT) 25 U/L (16-63) 23 U/L (16-63) 23 U/L (16-63) Alkaline Phosphatase 61 U/L (46-116) 55 U/L (46-116) 57 U/L (46-116) Total Protein 5.7 g/dL (6.4-8.2) 5.5 g/dL (6.4-8.2) 5.3 g/dL (6.4-8.2) Albumin 2.9 g/dL (3.4-5.0) 2.5 g/dL (3.4-5.0) 2.6 g/dL (3.4-5.0) Albumin/Globulin Ratio 1.0 (1.0-1.7) 0.8 (1.0-1.7) 1.0 (1.0-1.7) Salicylates Level 34.8 mg/dL (2.8-20.0) 33.1 mg/dL (2.8-20.0) 29.8 mg/dL (2.8-20.0) Salicylate Last Dose Date 12/11/18 Salicylate Last Dose Time 0800 Glucose (Fingerstick) 94 mg/dL (70-99) Test 12/12/18 05:45 12/12/18 08:00 12/12/18 09:00 Sodium Level 136 mmol/L (136-145) 137 mmol/L (136-145) Potassium Level 2.9 mmol/L (3.5-5.1) 2.7 mmol/L (3.5-5.1) Chloride Level 96 mmol/L (98-107) 95 mmol/L (98-107) Carbon Dioxide Level 35 mmol/L (21-32) 37 mmol/L (21-32) Anion Gap 5 (6-14) 5 (6-14) Blood Urea Nitrogen 16 mg/dL (8-26) 16 mg/dL (8-26) Creatinine 1.1 mg/dL (0.7-1.3) 1.0 mg/dL (0.7-1.3) Estimated GFR (Cockcroft-Gault) 70.9 79.1 BUN/Creatinine Ratio 15 (6-20) 16 (6-20) Glucose Level 113 mg/dL (70-99) 112 mg/dL (70-99) Calcium Level 7.5 mg/dL (8.5-10.1) 7.5 mg/dL (8.5-10.1) Phosphorus Level 3.1 mg/dL (2.6-4.7) 2.7 mg/dL (2.6-4.7) Magnesium Level 2.1 mg/dL (1.8-2.4) 2.1 mg/dL (1.8-2.4) Total Bilirubin 0.4 mg/dL (0.2-1.0) 0.4 mg/dL (0.2-1.0) Aspartate Amino Transf (AST/SGOT) 39 U/L (15-37) 42 U/L (15-37) Alanine Aminotransferase (ALT/SGPT) 23 U/L (16-63) 23 U/L (16-63) Alkaline Phosphatase 54 U/L (46-116) 52 U/L (46-116) Total Protein 5.2 g/dL (6.4-8.2) 5.2 g/dL (6.4-8.2) Albumin 2.4 g/dL (3.4-5.0) 2.4 g/dL (3.4-5.0) Albumin/Globulin Ratio 0.9 (1.0-1.7) 0.9 (1.0-1.7) Salicylates Level 25.6 mg/dL (2.8-20.0) 21.9 mg/dL (2.8-20.0) Salicylate Last Dose Date 12/11/18 12/11/18 Salicylate Last Dose Time 0800 0800 O2 Saturation 97 % (92-99) Arterial Blood pH 7.58 (7.35-7.45) Arterial Blood pCO2 at Patient Temp 38 mmHg (35-46) Arterial Blood pO2 at Patient Temp 87 mmHg (75-108) Arterial Blood HCO3 34 mmol/L (21-28) Arterial Blood Base Excess 12 mmol/L (-3-3) FiO2 40 White Blood Count 16.3 x10^3/uL (4.0-11.0) Red Blood Count 4.72 x10^6/uL (4.30-5.70) Hemoglobin 13.5 g/dL (13.0-17.5) Hematocrit 40.3 % (39.0-53.0) Mean Corpuscular Volume 86 fL (79-100) Mean Corpuscular Hemoglobin 29 pg (25-35) Mean Corpuscular Hemoglobin Concent 33 g/dL (31-37) Red Cell Distribution Width 12.6 % (11.5-14.5) Platelet Count 267 x10^3/uL (140-400) Neutrophils (%) (Auto) 75 % (31-73) Lymphocytes (%) (Auto) 13 % (24-48) Monocytes (%) (Auto) 10 % (0-9) Eosinophils (%) (Auto) 2 % (0-3) Basophils (%) (Auto) 1 % (0-3) Neutrophils # (Auto) 12.2 x10^3uL (1.8-7.7) Lymphocytes # (Auto) 2.1 x10^3/uL (1.0-4.8) Monocytes # (Auto) 1.6 x10^3/uL (0.0-1.1) Eosinophils # (Auto) 0.2 x10^3/uL (0.0-0.7) Basophils # (Auto) 0.1 x10^3/uL (0.0-0.2) Assessment and Plan Assessmemt and Plan Problems Medical Problems: (1) Laceration of left forearm Status: Acute (2) Laceration of left wrist Status: Acute (3) Laceration of right forearm Status: Acute (4) Salicylate overdose Status: Acute (5) Suicide attempt by beta mariely overdose Status: Acute (6) Suicide attempt by hanging Status: Acute Comment Review of Relevant I have reviewed the following items danis (where applicable) has been applied. Labs Laboratory Tests Test 12/11/18 10:00 12/11/18 10:03 12/11/18 10:19 12/11/18 10:22 Lactic Acid Level 2.1 mmol/L (0.4-2.0) White Blood Count 24.8 x10^3/uL (4.0-11.0) Red Blood Count 5.52 x10^6/uL (4.30-5.70) Hemoglobin 16.3 g/dL (13.0-17.5) Hematocrit 47.3 % (39.0-53.0) Mean Corpuscular Volume 86 fL (79-100) Mean Corpuscular Hemoglobin 30 pg (25-35) Mean Corpuscular Hemoglobin Concent 34 g/dL (31-37) Red Cell Distribution Width 12.5 % (11.5-14.5) Platelet Count 365 x10^3/uL (140-400) Neutrophils (%) (Auto) 89 % (31-73) Lymphocytes (%) (Auto) 5 % (24-48) Monocytes (%) (Auto) 5 % (0-9) Eosinophils (%) (Auto) 0 % (0-3) Basophils (%) (Auto) 1 % (0-3) Neutrophils # (Auto) 22.0 x10^3uL (1.8-7.7) Lymphocytes # (Auto) 1.3 x10^3/uL (1.0-4.8) Monocytes # (Auto) 1.3 x10^3/uL (0.0-1.1) Eosinophils # (Auto) 0.0 x10^3/uL (0.0-0.7) Basophils # (Auto) 0.1 x10^3/uL (0.0-0.2) Segmented Neutrophils % 87 % (35-66) Band Neutrophils % 3 % (0-9) Lymphocytes % 7 % (24-48) Monocytes % 3 % (0-10) Platelet Estimate Adequate (ADEQUATE) Sodium Level 129 mmol/L (136-145) Potassium Level 4.6 mmol/L (3.5-5.1) Chloride Level 92 mmol/L (98-107) Carbon Dioxide Level 25 mmol/L (21-32) Anion Gap 12 (6-14) Blood Urea Nitrogen 8 mg/dL (8-26) Creatinine 0.7 mg/dL (0.7-1.3) Estimated GFR (Cockcroft-Gault) 119.4 BUN/Creatinine Ratio 11 (6-20) Glucose Level 102 mg/dL (70-99) Calcium Level 9.1 mg/dL (8.5-10.1) Total Bilirubin 0.4 mg/dL (0.2-1.0) Aspartate Amino Transf (AST/SGOT) 25 U/L (15-37) Alanine Aminotransferase (ALT/SGPT) 29 U/L (16-63) Alkaline Phosphatase 79 U/L (46-116) Total Protein 7.6 g/dL (6.4-8.2) Albumin 3.6 g/dL (3.4-5.0) Albumin/Globulin Ratio 0.9 (1.0-1.7) Salicylates Level 39.7 mg/dL (2.8-20.0) Salicylate Last Dose Date Unknown Salicylate Last Dose Time Unknown Acetaminophen Level < 2 mcg/ml (10-30) Acetaminophen Last Dose Date Unknown Acetaminophen Last Dose Time Unknown Ethyl Alcohol Level < 10 mg/dL (0-10) O2 Saturation 99 % (92-99) Arterial Blood pH 7.35 (7.35-7.45) Arterial Blood pCO2 at Patient Temp 36 mmHg (35-46) Arterial Blood pO2 at Patient Temp 189 mmHg (75-108) Arterial Blood HCO3 20 mmol/L (21-28) Arterial Blood Base Excess -5 mmol/L (-3-3) Oxyhemoglobin 98.3 % Methemoglobin 0.3 % (0.0-1.9) Carbon Monoxide, Quantitative 0.3 % (0.0-1.9) FiO2 100 Urine Collection Type Unknown Urine Color Yellow Urine Clarity Clear Urine pH 6.5 Urine Specific [place] 1.015 Urine Protein Negative mg/dL (NEG-TRACE) Urine Glucose (UA) Negative mg/dL (NEG) Urine Ketones (Stick) Negative mg/dL (NEG) Urine Blood Negative (NEG) Urine Nitrite Negative (NEG) Urine Bilirubin Negative (NEG) Urine Urobilinogen Dipstick 0.2 mg/dL (0.2 mg/dL) Urine Leukocyte Esterase Negative (NEG) Urine RBC 0 /HPF (0-2) Urine WBC 0 /HPF (0-4) Urine Squamous Epithelial Cells Occ /LPF Urine Amorphous Sediment Present /HPF Urine Bacteria 0 /HPF (0-FEW) Urine Hyaline Casts Occasional /HPF Urine Mucus Mod /LPF Urine Opiates Screen Neg (NEG) Urine Methadone Screen Neg (NEG) Urine Barbiturates Neg (NEG) Urine Phencyclidine Screen Neg (NEG) Urine Amphetamine/Methamphetamine Neg (NEG) Urine Benzodiazepines Screen Neg (NEG) Urine Cocaine Screen Neg (NEG) Urine Cannabinoids Screen Neg (NEG) Urine Ethyl Alcohol Neg (NEG) Test 12/11/18 13:15 12/11/18 14:30 12/11/18 17:00 12/11/18 19:29 Lactic Acid Level 1.3 mmol/L (0.4-2.0) Salicylates Level 38.5 mg/dL (2.8-20.0) 34.4 mg/dL (2.8-20.0) Salicylate Last Dose Date Unknown 12/11/18 Salicylate Last Dose Time Unknown 0800 O2 Saturation 98 % (92-99) Arterial Blood pH 7.47 (7.35-7.45) Arterial Blood pH (Temp corrected) 7.46 Arterial Blood pCO2 at Patient Temp 36 mmHg (35-46) Arterial Blood pCO2 (Temp correct) 38 mmHg Arterial Blood pO2 at Patient Temp 120 mmHg (75-108) Arterial Blood pO2 (Temp corrected) 125 mmHg Arterial Blood HCO3 26 mmol/L (21-28) Arterial Blood Base Excess 3 mmol/L (-3-3) FiO2 60 Sodium Level 137 mmol/L (136-145) Potassium Level 4.3 mmol/L (3.5-5.1) Chloride Level 96 mmol/L (98-107) Carbon Dioxide Level 34 mmol/L (21-32) Anion Gap 7 (6-14) Blood Urea Nitrogen 14 mg/dL (8-26) Creatinine 1.0 mg/dL (0.7-1.3) Estimated GFR (Cockcroft-Gault) 79.1 BUN/Creatinine Ratio 14 (6-20) Glucose Level 107 mg/dL (70-99) Calcium Level 8.0 mg/dL (8.5-10.1) Phosphorus Level 6.8 mg/dL (2.6-4.7) Magnesium Level 2.1 mg/dL (1.8-2.4) Total Bilirubin 0.3 mg/dL (0.2-1.0) Aspartate Amino Transf (AST/SGOT) 26 U/L (15-37) Alanine Aminotransferase (ALT/SGPT) 24 U/L (16-63) Alkaline Phosphatase 63 U/L (46-116) Total Protein 5.7 g/dL (6.4-8.2) Albumin 2.8 g/dL (3.4-5.0) Albumin/Globulin Ratio 1.0 (1.0-1.7) Glucose (Fingerstick) 80 mg/dL (70-99) Test 12/11/18 21:05 12/11/18 21:17 12/12/18 00:10 12/12/18 02:55 Sodium Level 138 mmol/L (136-145) 137 mmol/L (136-145) 137 mmol/L (136-145) Potassium Level 3.3 mmol/L (3.5-5.1) 3.2 mmol/L (3.5-5.1) 3.2 mmol/L (3.5-5.1) Chloride Level 97 mmol/L (98-107) 96 mmol/L (98-107) 96 mmol/L (98-107) Carbon Dioxide Level 33 mmol/L (21-32) 35 mmol/L (21-32) 35 mmol/L (21-32) Anion Gap 8 (6-14) 6 (6-14) 6 (6-14) Blood Urea Nitrogen 14 mg/dL (8-26) 16 mg/dL (8-26) 15 mg/dL (8-26) Creatinine 1.2 mg/dL (0.7-1.3) 1.2 mg/dL (0.7-1.3) 1.2 mg/dL (0.7-1.3) Estimated GFR (Cockcroft-Gault) 64.1 64.1 64.1 BUN/Creatinine Ratio 12 (6-20) 13 (6-20) 13 (6-20) Glucose Level 114 mg/dL (70-99) 104 mg/dL (70-99) 108 mg/dL (70-99) Calcium Level 7.9 mg/dL (8.5-10.1) 7.6 mg/dL (8.5-10.1) 7.5 mg/dL (8.5-10.1) Phosphorus Level 5.3 mg/dL (2.6-4.7) 4.5 mg/dL (2.6-4.7) 4.1 mg/dL (2.6-4.7) Magnesium Level 2.0 mg/dL (1.8-2.4) 2.0 mg/dL (1.8-2.4) 1.9 mg/dL (1.8-2.4) Total Bilirubin 0.4 mg/dL (0.2-1.0) 0.4 mg/dL (0.2-1.0) 0.4 mg/dL (0.2-1.0) Aspartate Amino Transf (AST/SGOT) 27 U/L (15-37) 29 U/L (15-37) 36 U/L (15-37) Alanine Aminotransferase (ALT/SGPT) 25 U/L (16-63) 23 U/L (16-63) 23 U/L (16-63) Alkaline Phosphatase 61 U/L (46-116) 55 U/L (46-116) 57 U/L (46-116) Total Protein 5.7 g/dL (6.4-8.2) 5.5 g/dL (6.4-8.2) 5.3 g/dL (6.4-8.2) Albumin 2.9 g/dL (3.4-5.0) 2.5 g/dL (3.4-5.0) 2.6 g/dL (3.4-5.0) Albumin/Globulin Ratio 1.0 (1.0-1.7) 0.8 (1.0-1.7) 1.0 (1.0-1.7) Salicylates Level 34.8 mg/dL (2.8-20.0) 33.1 mg/dL (2.8-20.0) 29.8 mg/dL (2.8-20.0) Salicylate Last Dose Date 12/11/18 Salicylate Last Dose Time 0800 Glucose (Fingerstick) 94 mg/dL (70-99) Test 12/12/18 05:45 12/12/18 08:00 12/12/18 09:00 Sodium Level 136 mmol/L (136-145) 137 mmol/L (136-145) Potassium Level 2.9 mmol/L (3.5-5.1) 2.7 mmol/L (3.5-5.1) Chloride Level 96 mmol/L (98-107) 95 mmol/L (98-107) Carbon Dioxide Level 35 mmol/L (21-32) 37 mmol/L (21-32) Anion Gap 5 (6-14) 5 (6-14) Blood Urea Nitrogen 16 mg/dL (8-26) 16 mg/dL (8-26) Creatinine 1.1 mg/dL (0.7-1.3) 1.0 mg/dL (0.7-1.3) Estimated GFR (Cockcroft-Gault) 70.9 79.1 BUN/Creatinine Ratio 15 (6-20) 16 (6-20) Glucose Level 113 mg/dL (70-99) 112 mg/dL (70-99) Calcium Level 7.5 mg/dL (8.5-10.1) 7.5 mg/dL (8.5-10.1) Phosphorus Level 3.1 mg/dL (2.6-4.7) 2.7 mg/dL (2.6-4.7) Magnesium Level 2.1 mg/dL (1.8-2.4) 2.1 mg/dL (1.8-2.4) Total Bilirubin 0.4 mg/dL (0.2-1.0) 0.4 mg/dL (0.2-1.0) Aspartate Amino Transf (AST/SGOT) 39 U/L (15-37) 42 U/L (15-37) Alanine Aminotransferase (ALT/SGPT) 23 U/L (16-63) 23 U/L (16-63) Alkaline Phosphatase 54 U/L (46-116) 52 U/L (46-116) Total Protein 5.2 g/dL (6.4-8.2) 5.2 g/dL (6.4-8.2) Albumin 2.4 g/dL (3.4-5.0) 2.4 g/dL (3.4-5.0) Albumin/Globulin Ratio 0.9 (1.0-1.7) 0.9 (1.0-1.7) Salicylates Level 25.6 mg/dL (2.8-20.0) 21.9 mg/dL (2.8-20.0) Salicylate Last Dose Date 12/11/18 12/11/18 Salicylate Last Dose Time 0800 0800 O2 Saturation 97 % (92-99) Arterial Blood pH 7.58 (7.35-7.45) Arterial Blood pCO2 at Patient Temp 38 mmHg (35-46) Arterial Blood pO2 at Patient Temp 87 mmHg (75-108) Arterial Blood HCO3 34 mmol/L (21-28) Arterial Blood Base Excess 12 mmol/L (-3-3) FiO2 40 White Blood Count 16.3 x10^3/uL (4.0-11.0) Red Blood Count 4.72 x10^6/uL (4.30-5.70) Hemoglobin 13.5 g/dL (13.0-17.5) Hematocrit 40.3 % (39.0-53.0) Mean Corpuscular Volume 86 fL (79-100) Mean Corpuscular Hemoglobin 29 pg (25-35) Mean Corpuscular Hemoglobin Concent 33 g/dL (31-37) Red Cell Distribution Width 12.6 % (11.5-14.5) Platelet Count 267 x10^3/uL (140-400) Neutrophils (%) (Auto) 75 % (31-73) Lymphocytes (%) (Auto) 13 % (24-48) Monocytes (%) (Auto) 10 % (0-9) Eosinophils (%) (Auto) 2 % (0-3) Basophils (%) (Auto) 1 % (0-3) Neutrophils # (Auto) 12.2 x10^3uL (1.8-7.7) Lymphocytes # (Auto) 2.1 x10^3/uL (1.0-4.8) Monocytes # (Auto) 1.6 x10^3/uL (0.0-1.1) Eosinophils # (Auto) 0.2 x10^3/uL (0.0-0.7) Basophils # (Auto) 0.1 x10^3/uL (0.0-0.2) Laboratory Tests Test 12/11/18 13:15 12/11/18 14:30 12/11/18 17:00 12/11/18 19:29 Lactic Acid Level 1.3 mmol/L (0.4-2.0) Salicylates Level 38.5 mg/dL (2.8-20.0) 34.4 mg/dL (2.8-20.0) Salicylate Last Dose Date Unknown 12/11/18 Salicylate Last Dose Time Unknown 0800 O2 Saturation 98 % (92-99) Arterial Blood pH 7.47 (7.35-7.45) Arterial Blood pH (Temp corrected) 7.46 Arterial Blood pCO2 at Patient Temp 36 mmHg (35-46) Arterial Blood pCO2 (Temp correct) 38 mmHg Arterial Blood pO2 at Patient Temp 120 mmHg (75-108) Arterial Blood pO2 (Temp corrected) 125 mmHg Arterial Blood HCO3 26 mmol/L (21-28) Arterial Blood Base Excess 3 mmol/L (-3-3) FiO2 60 Sodium Level 137 mmol/L (136-145) Potassium Level 4.3 mmol/L (3.5-5.1) Chloride Level 96 mmol/L (98-107) Carbon Dioxide Level 34 mmol/L (21-32) Anion Gap 7 (6-14) Blood Urea Nitrogen 14 mg/dL (8-26) Creatinine 1.0 mg/dL (0.7-1.3) Estimated GFR (Cockcroft-Gault) 79.1 BUN/Creatinine Ratio 14 (6-20) Glucose Level 107 mg/dL (70-99) Calcium Level 8.0 mg/dL (8.5-10.1) Phosphorus Level 6.8 mg/dL (2.6-4.7) Magnesium Level 2.1 mg/dL (1.8-2.4) Total Bilirubin 0.3 mg/dL (0.2-1.0) Aspartate Amino Transf (AST/SGOT) 26 U/L (15-37) Alanine Aminotransferase (ALT/SGPT) 24 U/L (16-63) Alkaline Phosphatase 63 U/L (46-116) Total Protein 5.7 g/dL (6.4-8.2) Albumin 2.8 g/dL (3.4-5.0) Albumin/Globulin Ratio 1.0 (1.0-1.7) Glucose (Fingerstick) 80 mg/dL (70-99) Test 12/11/18 21:05 12/11/18 21:17 12/12/18 00:10 12/12/18 02:55 Sodium Level 138 mmol/L (136-145) 137 mmol/L (136-145) 137 mmol/L (136-145) Potassium Level 3.3 mmol/L (3.5-5.1) 3.2 mmol/L (3.5-5.1) 3.2 mmol/L (3.5-5.1) Chloride Level 97 mmol/L (98-107) 96 mmol/L (98-107) 96 mmol/L (98-107) Carbon Dioxide Level 33 mmol/L (21-32) 35 mmol/L (21-32) 35 mmol/L (21-32) Anion Gap 8 (6-14) 6 (6-14) 6 (6-14) Blood Urea Nitrogen 14 mg/dL (8-26) 16 mg/dL (8-26) 15 mg/dL (8-26) Creatinine 1.2 mg/dL (0.7-1.3) 1.2 mg/dL (0.7-1.3) 1.2 mg/dL (0.7-1.3) Estimated GFR (Cockcroft-Gault) 64.1 64.1 64.1 BUN/Creatinine Ratio 12 (6-20) 13 (6-20) 13 (6-20) Glucose Level 114 mg/dL (70-99) 104 mg/dL (70-99) 108 mg/dL (70-99) Calcium Level 7.9 mg/dL (8.5-10.1) 7.6 mg/dL (8.5-10.1) 7.5 mg/dL (8.5-10.1) Phosphorus Level 5.3 mg/dL (2.6-4.7) 4.5 mg/dL (2.6-4.7) 4.1 mg/dL (2.6-4.7) Magnesium Level 2.0 mg/dL (1.8-2.4) 2.0 mg/dL (1.8-2.4) 1.9 mg/dL (1.8-2.4) Total Bilirubin 0.4 mg/dL (0.2-1.0) 0.4 mg/dL (0.2-1.0) 0.4 mg/dL (0.2-1.0) Aspartate Amino Transf (AST/SGOT) 27 U/L (15-37) 29 U/L (15-37) 36 U/L (15-37) Alanine Aminotransferase (ALT/SGPT) 25 U/L (16-63) 23 U/L (16-63) 23 U/L (16-63) Alkaline Phosphatase 61 U/L (46-116) 55 U/L (46-116) 57 U/L (46-116) Total Protein 5.7 g/dL (6.4-8.2) 5.5 g/dL (6.4-8.2) 5.3 g/dL (6.4-8.2) Albumin 2.9 g/dL (3.4-5.0) 2.5 g/dL (3.4-5.0) 2.6 g/dL (3.4-5.0) Albumin/Globulin Ratio 1.0 (1.0-1.7) 0.8 (1.0-1.7) 1.0 (1.0-1.7) Salicylates Level 34.8 mg/dL (2.8-20.0) 33.1 mg/dL (2.8-20.0) 29.8 mg/dL (2.8-20.0) Salicylate Last Dose Date 12/11/18 Salicylate Last Dose Time 0800 Glucose (Fingerstick) 94 mg/dL (70-99) Test 12/12/18 05:45 12/12/18 08:00 12/12/18 09:00 Sodium Level 136 mmol/L (136-145) 137 mmol/L (136-145) Potassium Level 2.9 mmol/L (3.5-5.1) 2.7 mmol/L (3.5-5.1) Chloride Level 96 mmol/L (98-107) 95 mmol/L (98-107) Carbon Dioxide Level 35 mmol/L (21-32) 37 mmol/L (21-32) Anion Gap 5 (6-14) 5 (6-14) Blood Urea Nitrogen 16 mg/dL (8-26) 16 mg/dL (8-26) Creatinine 1.1 mg/dL (0.7-1.3) 1.0 mg/dL (0.7-1.3) Estimated GFR (Cockcroft-Gault) 70.9 79.1 BUN/Creatinine Ratio 15 (6-20) 16 (6-20) Glucose Level 113 mg/dL (70-99) 112 mg/dL (70-99) Calcium Level 7.5 mg/dL (8.5-10.1) 7.5 mg/dL (8.5-10.1) Phosphorus Level 3.1 mg/dL (2.6-4.7) 2.7 mg/dL (2.6-4.7) Magnesium Level 2.1 mg/dL (1.8-2.4) 2.1 mg/dL (1.8-2.4) Total Bilirubin 0.4 mg/dL (0.2-1.0) 0.4 mg/dL (0.2-1.0) Aspartate Amino Transf (AST/SGOT) 39 U/L (15-37) 42 U/L (15-37) Alanine Aminotransferase (ALT/SGPT) 23 U/L (16-63) 23 U/L (16-63) Alkaline Phosphatase 54 U/L (46-116) 52 U/L (46-116) Total Protein 5.2 g/dL (6.4-8.2) 5.2 g/dL (6.4-8.2) Albumin 2.4 g/dL (3.4-5.0) 2.4 g/dL (3.4-5.0) Albumin/Globulin Ratio 0.9 (1.0-1.7) 0.9 (1.0-1.7) Salicylates Level 25.6 mg/dL (2.8-20.0) 21.9 mg/dL (2.8-20.0) Salicylate Last Dose Date 12/11/18 12/11/18 Salicylate Last Dose Time 0800 0800 O2 Saturation 97 % (92-99) Arterial Blood pH 7.58 (7.35-7.45) Arterial Blood pCO2 at Patient Temp 38 mmHg (35-46) Arterial Blood pO2 at Patient Temp 87 mmHg (75-108) Arterial Blood HCO3 34 mmol/L (21-28) Arterial Blood Base Excess 12 mmol/L (-3-3) FiO2 40 White Blood Count 16.3 x10^3/uL (4.0-11.0) Red Blood Count 4.72 x10^6/uL (4.30-5.70) Hemoglobin 13.5 g/dL (13.0-17.5) Hematocrit 40.3 % (39.0-53.0) Mean Corpuscular Volume 86 fL (79-100) Mean Corpuscular Hemoglobin 29 pg (25-35) Mean Corpuscular Hemoglobin Concent 33 g/dL (31-37) Red Cell Distribution Width 12.6 % (11.5-14.5) Platelet Count 267 x10^3/uL (140-400) Neutrophils (%) (Auto) 75 % (31-73) Lymphocytes (%) (Auto) 13 % (24-48) Monocytes (%) (Auto) 10 % (0-9) Eosinophils (%) (Auto) 2 % (0-3) Basophils (%) (Auto) 1 % (0-3) Neutrophils # (Auto) 12.2 x10^3uL (1.8-7.7) Lymphocytes # (Auto) 2.1 x10^3/uL (1.0-4.8) Monocytes # (Auto) 1.6 x10^3/uL (0.0-1.1) Eosinophils # (Auto) 0.2 x10^3/uL (0.0-0.7) Basophils # (Auto) 0.1 x10^3/uL (0.0-0.2) Medications Current Medications Ondansetron HCl (Zofran) 4 mg STK-MED ONCE .ROUTE ; Start 12/11/18 at 10:09; Stop 12/11/18 at 10:10; Status DC Ondansetron HCl (Zofran) 4 mg 1X ONCE IV Last administered on 12/11/18at 10:11 ; Start 12/11/18 at 10:15; Stop 12/11/18 at 10:16; Status DC Sodium Chloride 1,000 ml @ 1,000 mls/hr 1X ONCE IV Last administered on at 10:12; Start 12/11/18 at 10:15; Stop 12/11/18 at 11:14; Status DC Propofol 50 ml @ As Directed STK-MED ONCE IV ; Start 12/11/18 at 10:16; Stop at 10:17; Status DC Propofol 100 ml @ 0 mls/hr CONT PRN IV SEE PROTOCOL Last administered on at 10:35; Start 12/11/18 at 10:30 Fentanyl Citrate (Fentanyl 2ml Vial) 25 mcg PRN Q1HR PRN IV SEE COMMENTS; Start 12/11/18 at 10:30 Fentanyl Citrate (Fentanyl 2ml Vial) 50 mcg PRN Q1HR PRN IV SEE COMMENTS Last administered on 12/11/18at 16:04; Start 12/11/18 at 10:30 Chlorhexidine Gluconate (Peridex) 15 ml BID MM Last administered on 12/11/18at 21:00; Start 12/11/18 at 21:00 Sodium Bicarbonate (Sodium Bicarb Adult 8.4% Syr) 150 meq 1X ONCE IV Last administered on 12/11/18at 11:27; Start 12/11/18 at 11:00; Stop 12/11/18 at 11:06 ; Status DC Sodium Bicarbonate 100 meq/Dextrose 1,100 ml @ 200 mls/hr Q5H30M IV Last administered on 12/12/18at 09:57; Start 12/11/18 at 11:15 Tetanus/ Diphtheria Toxoids (Tenivac Syringe) 0.5 ml ONCE ONCE VAX IM Last administered on 12/11/18at 11:41; Start 12/11/18 at 11:15; Stop 12/11/18 at 11:16 ; Status DC Propofol 50 ml @ As Directed STK-MED ONCE IV ; Start 12/11/18 at 11:38; Stop at 11:39; Status DC Etomidate (Amidate) 20 mg STK-MED ONCE IV ; Start 12/11/18 at 11:48; Stop at 11:49; Status DC Succinylcholine Chloride (Anectine) 200 mg STK-MED ONCE .ROUTE ; Start 12/11/18 at 11:49; Stop 12/11/18 at 11:50; Status DC Midazolam HCl 100 ml @ 5 mls/hr CONT PRN IV SEE I/O RECORD Last administered on 12/12/18at 09:38; Start 12/11/18 at 14:00 Midazolam HCl 100 ml @ 5 mls/hr CONT PRN IV SEE I/O RECORD; Start 12/11/18 at 13:45; Status UNV Sodium Chloride 1,000 ml @ 999 mls/hr 1X ONCE IV Last administered on at 14:19; Start 12/11/18 at 14:00; Stop 12/11/18 at 15:00; Status DC Norepinephrine Bitartrate 250 ml @ 1.875 mls/ hr CONT PRN IV SEE I/O RECORD Last administered on 12/12/18at 04:04; Start 12/11/18 at 14:45 Fentanyl Citrate 30 ml @ 0 mls/hr CONT PRN PRN IV PER PROTOCOL Last administered on 12/12/18at 10:24; Start 12/11/18 at 18:15 Potassium Chloride/Water 100 ml @ 100 mls/hr Q1H IV Last administered on at 01:04; Start 12/11/18 at 22:00; Stop 12/12/18 at 01:59; Status DC Potassium Chloride/Water 100 ml @ 100 mls/hr Q1H IV Last administered on at 05:05; Start 12/12/18 at 02:00; Stop 12/12/18 at 05:59; Status DC Potassium Chloride/Water 100 ml @ 100 mls/hr Q1H IV Last administered on at 09:36; Start 12/12/18 at 07:00; Stop 12/12/18 at 14:59 Active Scripts Active Keflex (Cephalexin) 500 Mg Capsule 1 Cap PO QID 7 Days Reported Aspirin 325 Mg Tablet 1 Tab PO DAILY Benadryl (Diphenhydramine Hcl) 25 Mg Capsule 1 Cap PO QHS Metoprolol Succinate ( Xl ) (Metoprolol Succinate) 25 Mg Tab.er.24h 1 Tab PO DAILY Vitals/I & O Vital Sign - Last 24 Hours 12/11/18 12/11/18 12/11/18 12/11/18 10:55 11:10 11:15 11:19 Pulse 86 90 94 Resp 16 16 20 B/P (MAP) 152/80 (104) 133/94 (107) 127/92 (104) Pulse Ox 100 100 98 95 O2 Delivery Ventilator Ventilator Ventilator 12/11/18 12/11/18 12/11/18 12/11/18 11:30 11:45 12:00 12:15 Pulse 88 86 86 82 Resp 20 20 20 20 B/P (MAP) 140/75 (96) 134/72 (92) 125/59 (81) 121/60 (80) Pulse Ox 95 98 98 100 O2 Delivery Ventilator Ventilator Ventilator Ventilator 12/11/18 12/11/18 12/11/18 12/11/18 12:32 12:45 13:00 13:15 Temp 98.4 98.4 Pulse 82 80 80 Resp 20 22 21 B/P (MAP) 93/66 (75) 84/62 (69) 80/57 (65) Pulse Ox 95 97 99 100 O2 Delivery Ventilator Ventilator Ventilator 12/11/18 12/11/18 12/11/18 12/11/18 13:19 13:45 14:00 14:19 Pulse 81 77 Resp 20 20 21 B/P (MAP) 87/64 (72) 95/67 (76) Pulse Ox 99 98 99 O2 Delivery Mechanical Ventilator Ventilator Ventilator O2 Flow Rate 2.0 12/11/18 12/11/18 12/11/18 12/11/18 15:00 15:17 16:00 16:00 Temp 100.1 100.1 Pulse 79 76 Resp 20 20 B/P (MAP) 99/61 (74) 90/52 (65) Pulse Ox 97 98 98 O2 Delivery Ventilator Mechanical Ventilator Ventilator 12/11/18 12/11/18 12/11/18 12/11/18 16:04 16:34 17:00 17:06 Pulse 76 Resp 21 20 20 B/P (MAP) 86/50 (62) Pulse Ox 98 98 99 99 O2 Delivery Ventilator Ventilator Ventilator 12/11/18 12/11/18 12/11/18 12/11/18 18:00 18:19 18:49 19:00 Pulse 85 77 Resp 21 20 21 20 B/P (MAP) 110/75 (87) 80/55 (63) Pulse Ox 99 99 100 99 O2 Delivery Ventilator Ventilator Ventilator 12/11/18 12/11/18 12/11/18 12/11/18 19:30 19:36 19:45 20:00 Temp 101.0 101.0 Pulse 77 Resp 22 B/P (MAP) 83/50 (61) 90/58 (69) 87/63 (71) Pulse Ox 99 99 O2 Delivery Ventilator 12/11/18 12/11/18 12/11/18 12/11/18 20:00 21:00 21:58 22:00 Pulse 74 71 Resp 25 25 B/P (MAP) 99/63 (75) 93/59 (70) Pulse Ox 99 99 100 O2 Delivery Mechanical Ventilator Ventilator Ventilator 12/11/18 12/11/18 12/11/18 12/12/18 23:00 23:40 23:44 00:00 Temp 99.5 99.5 Pulse 72 71 Resp 24 24 B/P (MAP) 86/59 (68) 86/60 (69) Pulse Ox 100 100 100 O2 Delivery Ventilator Mechanical Ventilator Ventilator 12/12/18 12/12/18 12/12/18 12/12/18 01:00 01:15 02:00 03:00 Pulse 71 70 66 Resp 22 20 26 B/P (MAP) 96/68 (77) 91/59 (70) 87/66 (73) Pulse Ox 100 100 100 100 O2 Delivery Ventilator Ventilator Ventilator 12/12/18 12/12/18 12/12/18 12/12/18 03:20 03:43 04:00 05:00 Temp 98.5 98.5 Pulse 66 58 Resp 24 27 B/P (MAP) 90/61 (71) 153/89 (110) Pulse Ox 100 100 100 O2 Delivery Mechanical Ventilator Ventilator Ventilator 12/12/18 12/12/18 12/12/18 12/12/18 05:15 05:30 06:00 07:00 Pulse 68 74 Resp 20 20 B/P (MAP) 87/56 (66) 89/52 (64) 97/56 (70) Pulse Ox 100 100 96 O2 Delivery Ventilator Ventilator 12/12/18 12/12/18 12/12/18 07:42 09:31 10:24 Resp 20 Pulse Ox 100 100 100 O2 Delivery Ventilator Intake and Output 12/11/18 12/11/18 12/12/18 14:59 22:59 06:59 Intake Total 1098 ml 1693.94 ml 3064 ml Output Total 650 ml 1610 ml 610 ml Balance 448 ml 83.94 ml 2454 ml DAYLIN PAULINO MD Dec 12, 2018 10:45
[2018-12-12] MEDS: IV NORMAL SALINE 1000ML BAG 1,000 ML IV SCH ×2 (11:45→23:49)
--- NOTE | 2018-12-12 11:57 | PDOC ---
Renal-Progress Notes Subjective Notes Notes REMAINS INTUBATED History of Present Illness Hx of present illness STABLE Vitals Vitals Vital Signs Date Time Temp Pulse Resp B/P (MAP) Pulse Ox O2 Delivery O2 Flow Rate FiO2 12/12/18 10:24 20 100 Ventilator 12/12/18 07:00 74 97/56 (70) 12/12/18 04:00 98.5 98.5 12/11/18 14:19 2.0 Weight Weight [ ] I.O. Intake and Output Intake and Output 12/12/18 06:59 Intake Total 5855.94 ml Output Total 2870 ml Balance 2985.94 ml Intake IV Total 5855.94 ml Output Urine Total 1870 ml Gastric Drainage Total 1000 ml Labs Labs Laboratory Tests Test 12/11/18 13:15 12/11/18 14:30 12/11/18 17:00 12/11/18 19:29 Lactic Acid Level 1.3 mmol/L (0.4-2.0) Salicylates Level 38.5 mg/dL (2.8-20.0) 34.4 mg/dL (2.8-20.0) Salicylate Last Dose Date Unknown 12/11/18 Salicylate Last Dose Time Unknown 0800 O2 Saturation 98 % (92-99) Arterial Blood pH 7.47 (7.35-7.45) Arterial Blood pH (Temp corrected) 7.46 Arterial Blood pCO2 at Patient Temp 36 mmHg (35-46) Arterial Blood pCO2 (Temp correct) 38 mmHg Arterial Blood pO2 at Patient Temp 120 mmHg (75-108) Arterial Blood pO2 (Temp corrected) 125 mmHg Arterial Blood HCO3 26 mmol/L (21-28) Arterial Blood Base Excess 3 mmol/L (-3-3) FiO2 60 Sodium Level 137 mmol/L (136-145) Potassium Level 4.3 mmol/L (3.5-5.1) Chloride Level 96 mmol/L (98-107) Carbon Dioxide Level 34 mmol/L (21-32) Anion Gap 7 (6-14) Blood Urea Nitrogen 14 mg/dL (8-26) Creatinine 1.0 mg/dL (0.7-1.3) Estimated GFR (Cockcroft-Gault) 79.1 BUN/Creatinine Ratio 14 (6-20) Glucose Level 107 mg/dL (70-99) Calcium Level 8.0 mg/dL (8.5-10.1) Phosphorus Level 6.8 mg/dL (2.6-4.7) Magnesium Level 2.1 mg/dL (1.8-2.4) Total Bilirubin 0.3 mg/dL (0.2-1.0) Aspartate Amino Transf (AST/SGOT) 26 U/L (15-37) Alanine Aminotransferase (ALT/SGPT) 24 U/L (16-63) Alkaline Phosphatase 63 U/L (46-116) Total Protein 5.7 g/dL (6.4-8.2) Albumin 2.8 g/dL (3.4-5.0) Albumin/Globulin Ratio 1.0 (1.0-1.7) Glucose (Fingerstick) 80 mg/dL (70-99) Test 12/11/18 21:05 12/11/18 21:17 12/12/18 00:10 12/12/18 02:55 Sodium Level 138 mmol/L (136-145) 137 mmol/L (136-145) 137 mmol/L (136-145) Potassium Level 3.3 mmol/L (3.5-5.1) 3.2 mmol/L (3.5-5.1) 3.2 mmol/L (3.5-5.1) Chloride Level 97 mmol/L (98-107) 96 mmol/L (98-107) 96 mmol/L (98-107) Carbon Dioxide Level 33 mmol/L (21-32) 35 mmol/L (21-32) 35 mmol/L (21-32) Anion Gap 8 (6-14) 6 (6-14) 6 (6-14) Blood Urea Nitrogen 14 mg/dL (8-26) 16 mg/dL (8-26) 15 mg/dL (8-26) Creatinine 1.2 mg/dL (0.7-1.3) 1.2 mg/dL (0.7-1.3) 1.2 mg/dL (0.7-1.3) Estimated GFR (Cockcroft-Gault) 64.1 64.1 64.1 BUN/Creatinine Ratio 12 (6-20) 13 (6-20) 13 (6-20) Glucose Level 114 mg/dL (70-99) 104 mg/dL (70-99) 108 mg/dL (70-99) Calcium Level 7.9 mg/dL (8.5-10.1) 7.6 mg/dL (8.5-10.1) 7.5 mg/dL (8.5-10.1) Phosphorus Level 5.3 mg/dL (2.6-4.7) 4.5 mg/dL (2.6-4.7) 4.1 mg/dL (2.6-4.7) Magnesium Level 2.0 mg/dL (1.8-2.4) 2.0 mg/dL (1.8-2.4) 1.9 mg/dL (1.8-2.4) Total Bilirubin 0.4 mg/dL (0.2-1.0) 0.4 mg/dL (0.2-1.0) 0.4 mg/dL (0.2-1.0) Aspartate Amino Transf (AST/SGOT) 27 U/L (15-37) 29 U/L (15-37) 36 U/L (15-37) Alanine Aminotransferase (ALT/SGPT) 25 U/L (16-63) 23 U/L (16-63) 23 U/L (16-63) Alkaline Phosphatase 61 U/L (46-116) 55 U/L (46-116) 57 U/L (46-116) Total Protein 5.7 g/dL (6.4-8.2) 5.5 g/dL (6.4-8.2) 5.3 g/dL (6.4-8.2) Albumin 2.9 g/dL (3.4-5.0) 2.5 g/dL (3.4-5.0) 2.6 g/dL (3.4-5.0) Albumin/Globulin Ratio 1.0 (1.0-1.7) 0.8 (1.0-1.7) 1.0 (1.0-1.7) Salicylates Level 34.8 mg/dL (2.8-20.0) 33.1 mg/dL (2.8-20.0) 29.8 mg/dL (2.8-20.0) Salicylate Last Dose Date 12/11/18 Salicylate Last Dose Time 0800 Glucose (Fingerstick) 94 mg/dL (70-99) Test 12/12/18 05:45 12/12/18 08:00 12/12/18 09:00 Sodium Level 136 mmol/L (136-145) 137 mmol/L (136-145) Potassium Level 2.9 mmol/L (3.5-5.1) 2.7 mmol/L (3.5-5.1) Chloride Level 96 mmol/L (98-107) 95 mmol/L (98-107) Carbon Dioxide Level 35 mmol/L (21-32) 37 mmol/L (21-32) Anion Gap 5 (6-14) 5 (6-14) Blood Urea Nitrogen 16 mg/dL (8-26) 16 mg/dL (8-26) Creatinine 1.1 mg/dL (0.7-1.3) 1.0 mg/dL (0.7-1.3) Estimated GFR (Cockcroft-Gault) 70.9 79.1 BUN/Creatinine Ratio 15 (6-20) 16 (6-20) Glucose Level 113 mg/dL (70-99) 112 mg/dL (70-99) Calcium Level 7.5 mg/dL (8.5-10.1) 7.5 mg/dL (8.5-10.1) Phosphorus Level 3.1 mg/dL (2.6-4.7) 2.7 mg/dL (2.6-4.7) Magnesium Level 2.1 mg/dL (1.8-2.4) 2.1 mg/dL (1.8-2.4) Total Bilirubin 0.4 mg/dL (0.2-1.0) 0.4 mg/dL (0.2-1.0) Aspartate Amino Transf (AST/SGOT) 39 U/L (15-37) 42 U/L (15-37) Alanine Aminotransferase (ALT/SGPT) 23 U/L (16-63) 23 U/L (16-63) Alkaline Phosphatase 54 U/L (46-116) 52 U/L (46-116) Total Protein 5.2 g/dL (6.4-8.2) 5.2 g/dL (6.4-8.2) Albumin 2.4 g/dL (3.4-5.0) 2.4 g/dL (3.4-5.0) Albumin/Globulin Ratio 0.9 (1.0-1.7) 0.9 (1.0-1.7) Salicylates Level 25.6 mg/dL (2.8-20.0) 21.9 mg/dL (2.8-20.0) Salicylate Last Dose Date 12/11/18 12/11/18 Salicylate Last Dose Time 0800 0800 O2 Saturation 97 % (92-99) Arterial Blood pH 7.58 (7.35-7.45) Arterial Blood pCO2 at Patient Temp 38 mmHg (35-46) Arterial Blood pO2 at Patient Temp 87 mmHg (75-108) Arterial Blood HCO3 34 mmol/L (21-28) Arterial Blood Base Excess 12 mmol/L (-3-3) FiO2 40 White Blood Count 16.3 x10^3/uL (4.0-11.0) Red Blood Count 4.72 x10^6/uL (4.30-5.70) Hemoglobin 13.5 g/dL (13.0-17.5) Hematocrit 40.3 % (39.0-53.0) Mean Corpuscular Volume 86 fL (79-100) Mean Corpuscular Hemoglobin 29 pg (25-35) Mean Corpuscular Hemoglobin Concent 33 g/dL (31-37) Red Cell Distribution Width 12.6 % (11.5-14.5) Platelet Count 267 x10^3/uL (140-400) Neutrophils (%) (Auto) 75 % (31-73) Lymphocytes (%) (Auto) 13 % (24-48) Monocytes (%) (Auto) 10 % (0-9) Eosinophils (%) (Auto) 2 % (0-3) Basophils (%) (Auto) 1 % (0-3) Neutrophils # (Auto) 12.2 x10^3uL (1.8-7.7) Lymphocytes # (Auto) 2.1 x10^3/uL (1.0-4.8) Monocytes # (Auto) 1.6 x10^3/uL (0.0-1.1) Eosinophils # (Auto) 0.2 x10^3/uL (0.0-0.7) Basophils # (Auto) 0.1 x10^3/uL (0.0-0.2) Review of Systems Constitutional: yes: unresponsive Physical Exam General Appearance: no apparent distress Skin: warm Respiratory: decreased breath sounds Heart: S1S2 Abdomen: soft, other (HYPOACTIVE) Extremities: pulses present, no edema, atrophy Neurology: non-verbal, other (SEDATED) Assessment Assessment MP SUICIDE ATTEMPT SALICYLATE POISONING-LEVELS IMPROVING ACUTE RESP FAILURE MET ENCEPHALOPATHY ALKALEMIA HYPOKALEMIA PROBABLE ILEUS PLAN VOLUME EXPAND WITH SALINE PRESSORS NEEDED WEAN VERSED STOP HCO3 GTT PROCALAMINE FOR NOW REPLACE KETAN LAROSE MD Dec 12, 2018 11:56
--- NOTE | 2018-12-12 14:04 | PDOC ---
PULMONARY PROGRESS NOTES Subjective PT SEDATED ON LOW DOSE LEVO Vitals Vital Signs Date Time Temp Pulse Resp B/P (MAP) Pulse Ox O2 Delivery O2 Flow Rate FiO2 12/12/18 13:38 100 12/12/18 12:36 101.4 122/71 (88) Ventilator 101.4 12/12/18 10:24 20 12/12/18 08:00 70 12/11/18 14:19 2.0 ROS: No Nausea Lungs: Crackles Cardiovascular: S1, S2 Abdomen: Soft Extremities: No Edema Skin: Warm Labs Laboratory Tests Test 12/11/18 10:00 12/11/18 10:03 12/11/18 10:19 12/11/18 10:22 Lactic Acid Level 2.1 mmol/L (0.4-2.0) White Blood Count 24.8 x10^3/uL (4.0-11.0) Red Blood Count 5.52 x10^6/uL (4.30-5.70) Hemoglobin 16.3 g/dL (13.0-17.5) Hematocrit 47.3 % (39.0-53.0) Mean Corpuscular Volume 86 fL (79-100) Mean Corpuscular Hemoglobin 30 pg (25-35) Mean Corpuscular Hemoglobin Concent 34 g/dL (31-37) Red Cell Distribution Width 12.5 % (11.5-14.5) Platelet Count 365 x10^3/uL (140-400) Neutrophils (%) (Auto) 89 % (31-73) Lymphocytes (%) (Auto) 5 % (24-48) Monocytes (%) (Auto) 5 % (0-9) Eosinophils (%) (Auto) 0 % (0-3) Basophils (%) (Auto) 1 % (0-3) Neutrophils # (Auto) 22.0 x10^3uL (1.8-7.7) Lymphocytes # (Auto) 1.3 x10^3/uL (1.0-4.8) Monocytes # (Auto) 1.3 x10^3/uL (0.0-1.1) Eosinophils # (Auto) 0.0 x10^3/uL (0.0-0.7) Basophils # (Auto) 0.1 x10^3/uL (0.0-0.2) Segmented Neutrophils % 87 % (35-66) Band Neutrophils % 3 % (0-9) Lymphocytes % 7 % (24-48) Monocytes % 3 % (0-10) Platelet Estimate Adequate (ADEQUATE) Sodium Level 129 mmol/L (136-145) Potassium Level 4.6 mmol/L (3.5-5.1) Chloride Level 92 mmol/L (98-107) Carbon Dioxide Level 25 mmol/L (21-32) Anion Gap 12 (6-14) Blood Urea Nitrogen 8 mg/dL (8-26) Creatinine 0.7 mg/dL (0.7-1.3) Estimated GFR (Cockcroft-Gault) 119.4 BUN/Creatinine Ratio 11 (6-20) Glucose Level 102 mg/dL (70-99) Calcium Level 9.1 mg/dL (8.5-10.1) Total Bilirubin 0.4 mg/dL (0.2-1.0) Aspartate Amino Transf (AST/SGOT) 25 U/L (15-37) Alanine Aminotransferase (ALT/SGPT) 29 U/L (16-63) Alkaline Phosphatase 79 U/L (46-116) Total Protein 7.6 g/dL (6.4-8.2) Albumin 3.6 g/dL (3.4-5.0) Albumin/Globulin Ratio 0.9 (1.0-1.7) Salicylates Level 39.7 mg/dL (2.8-20.0) Salicylate Last Dose Date Unknown Salicylate Last Dose Time Unknown Acetaminophen Level < 2 mcg/ml (10-30) Acetaminophen Last Dose Date Unknown Acetaminophen Last Dose Time Unknown Ethyl Alcohol Level < 10 mg/dL (0-10) O2 Saturation 99 % (92-99) Arterial Blood pH 7.35 (7.35-7.45) Arterial Blood pCO2 at Patient Temp 36 mmHg (35-46) Arterial Blood pO2 at Patient Temp 189 mmHg (75-108) Arterial Blood HCO3 20 mmol/L (21-28) Arterial Blood Base Excess -5 mmol/L (-3-3) Oxyhemoglobin 98.3 % Methemoglobin 0.3 % (0.0-1.9) Carbon Monoxide, Quantitative 0.3 % (0.0-1.9) FiO2 100 Urine Collection Type Unknown Urine Color Yellow Urine Clarity Clear Urine pH 6.5 Urine Specific [place] 1.015 Urine Protein Negative mg/dL (NEG-TRACE) Urine Glucose (UA) Negative mg/dL (NEG) Urine Ketones (Stick) Negative mg/dL (NEG) Urine Blood Negative (NEG) Urine Nitrite Negative (NEG) Urine Bilirubin Negative (NEG) Urine Urobilinogen Dipstick 0.2 mg/dL (0.2 mg/dL) Urine Leukocyte Esterase Negative (NEG) Urine RBC 0 /HPF (0-2) Urine WBC 0 /HPF (0-4) Urine Squamous Epithelial Cells Occ /LPF Urine Amorphous Sediment Present /HPF Urine Bacteria 0 /HPF (0-FEW) Urine Hyaline Casts Occasional /HPF Urine Mucus Mod /LPF Urine Opiates Screen Neg (NEG) Urine Methadone Screen Neg (NEG) Urine Barbiturates Neg (NEG) Urine Phencyclidine Screen Neg (NEG) Urine Amphetamine/Methamphetamine Neg (NEG) Urine Benzodiazepines Screen Neg (NEG) Urine Cocaine Screen Neg (NEG) Urine Cannabinoids Screen Neg (NEG) Urine Ethyl Alcohol Neg (NEG) Test 12/11/18 13:15 12/11/18 14:30 12/11/18 17:00 12/11/18 19:29 Lactic Acid Level 1.3 mmol/L (0.4-2.0) Salicylates Level 38.5 mg/dL (2.8-20.0) 34.4 mg/dL (2.8-20.0) Salicylate Last Dose Date Unknown 12/11/18 Salicylate Last Dose Time Unknown 0800 O2 Saturation 98 % (92-99) Arterial Blood pH 7.47 (7.35-7.45) Arterial Blood pH (Temp corrected) 7.46 Arterial Blood pCO2 at Patient Temp 36 mmHg (35-46) Arterial Blood pCO2 (Temp correct) 38 mmHg Arterial Blood pO2 at Patient Temp 120 mmHg (75-108) Arterial Blood pO2 (Temp corrected) 125 mmHg Arterial Blood HCO3 26 mmol/L (21-28) Arterial Blood Base Excess 3 mmol/L (-3-3) FiO2 60 Sodium Level 137 mmol/L (136-145) Potassium Level 4.3 mmol/L (3.5-5.1) Chloride Level 96 mmol/L (98-107) Carbon Dioxide Level 34 mmol/L (21-32) Anion Gap 7 (6-14) Blood Urea Nitrogen 14 mg/dL (8-26) Creatinine 1.0 mg/dL (0.7-1.3) Estimated GFR (Cockcroft-Gault) 79.1 BUN/Creatinine Ratio 14 (6-20) Glucose Level 107 mg/dL (70-99) Calcium Level 8.0 mg/dL (8.5-10.1) Phosphorus Level 6.8 mg/dL (2.6-4.7) Magnesium Level 2.1 mg/dL (1.8-2.4) Total Bilirubin 0.3 mg/dL (0.2-1.0) Aspartate Amino Transf (AST/SGOT) 26 U/L (15-37) Alanine Aminotransferase (ALT/SGPT) 24 U/L (16-63) Alkaline Phosphatase 63 U/L (46-116) Total Protein 5.7 g/dL (6.4-8.2) Albumin 2.8 g/dL (3.4-5.0) Albumin/Globulin Ratio 1.0 (1.0-1.7) Glucose (Fingerstick) 80 mg/dL (70-99) Test 12/11/18 21:05 12/11/18 21:17 12/12/18 00:10 12/12/18 02:55 Sodium Level 138 mmol/L (136-145) 137 mmol/L (136-145) 137 mmol/L (136-145) Potassium Level 3.3 mmol/L (3.5-5.1) 3.2 mmol/L (3.5-5.1) 3.2 mmol/L (3.5-5.1) Chloride Level 97 mmol/L (98-107) 96 mmol/L (98-107) 96 mmol/L (98-107) Carbon Dioxide Level 33 mmol/L (21-32) 35 mmol/L (21-32) 35 mmol/L (21-32) Anion Gap 8 (6-14) 6 (6-14) 6 (6-14) Blood Urea Nitrogen 14 mg/dL (8-26) 16 mg/dL (8-26) 15 mg/dL (8-26) Creatinine 1.2 mg/dL (0.7-1.3) 1.2 mg/dL (0.7-1.3) 1.2 mg/dL (0.7-1.3) Estimated GFR (Cockcroft-Gault) 64.1 64.1 64.1 BUN/Creatinine Ratio 12 (6-20) 13 (6-20) 13 (6-20) Glucose Level 114 mg/dL (70-99) 104 mg/dL (70-99) 108 mg/dL (70-99) Calcium Level 7.9 mg/dL (8.5-10.1) 7.6 mg/dL (8.5-10.1) 7.5 mg/dL (8.5-10.1) Phosphorus Level 5.3 mg/dL (2.6-4.7) 4.5 mg/dL (2.6-4.7) 4.1 mg/dL (2.6-4.7) Magnesium Level 2.0 mg/dL (1.8-2.4) 2.0 mg/dL (1.8-2.4) 1.9 mg/dL (1.8-2.4) Total Bilirubin 0.4 mg/dL (0.2-1.0) 0.4 mg/dL (0.2-1.0) 0.4 mg/dL (0.2-1.0) Aspartate Amino Transf (AST/SGOT) 27 U/L (15-37) 29 U/L (15-37) 36 U/L (15-37) Alanine Aminotransferase (ALT/SGPT) 25 U/L (16-63) 23 U/L (16-63) 23 U/L (16-63) Alkaline Phosphatase 61 U/L (46-116) 55 U/L (46-116) 57 U/L (46-116) Total Protein 5.7 g/dL (6.4-8.2) 5.5 g/dL (6.4-8.2) 5.3 g/dL (6.4-8.2) Albumin 2.9 g/dL (3.4-5.0) 2.5 g/dL (3.4-5.0) 2.6 g/dL (3.4-5.0) Albumin/Globulin Ratio 1.0 (1.0-1.7) 0.8 (1.0-1.7) 1.0 (1.0-1.7) Salicylates Level 34.8 mg/dL (2.8-20.0) 33.1 mg/dL (2.8-20.0) 29.8 mg/dL (2.8-20.0) Salicylate Last Dose Date 12/11/18 Salicylate Last Dose Time 0800 Glucose (Fingerstick) 94 mg/dL (70-99) Test 12/12/18 05:45 12/12/18 08:00 12/12/18 09:00 Sodium Level 136 mmol/L (136-145) 137 mmol/L (136-145) Potassium Level 2.9 mmol/L (3.5-5.1) 2.7 mmol/L (3.5-5.1) Chloride Level 96 mmol/L (98-107) 95 mmol/L (98-107) Carbon Dioxide Level 35 mmol/L (21-32) 37 mmol/L (21-32) Anion Gap 5 (6-14) 5 (6-14) Blood Urea Nitrogen 16 mg/dL (8-26) 16 mg/dL (8-26) Creatinine 1.1 mg/dL (0.7-1.3) 1.0 mg/dL (0.7-1.3) Estimated GFR (Cockcroft-Gault) 70.9 79.1 BUN/Creatinine Ratio 15 (6-20) 16 (6-20) Glucose Level 113 mg/dL (70-99) 112 mg/dL (70-99) Calcium Level 7.5 mg/dL (8.5-10.1) 7.5 mg/dL (8.5-10.1) Phosphorus Level 3.1 mg/dL (2.6-4.7) 2.7 mg/dL (2.6-4.7) Magnesium Level 2.1 mg/dL (1.8-2.4) 2.1 mg/dL (1.8-2.4) Total Bilirubin 0.4 mg/dL (0.2-1.0) 0.4 mg/dL (0.2-1.0) Aspartate Amino Transf (AST/SGOT) 39 U/L (15-37) 42 U/L (15-37) Alanine Aminotransferase (ALT/SGPT) 23 U/L (16-63) 23 U/L (16-63) Alkaline Phosphatase 54 U/L (46-116) 52 U/L (46-116) Total Protein 5.2 g/dL (6.4-8.2) 5.2 g/dL (6.4-8.2) Albumin 2.4 g/dL (3.4-5.0) 2.4 g/dL (3.4-5.0) Albumin/Globulin Ratio 0.9 (1.0-1.7) 0.9 (1.0-1.7) Salicylates Level 25.6 mg/dL (2.8-20.0) 21.9 mg/dL (2.8-20.0) Salicylate Last Dose Date 12/11/18 12/11/18 Salicylate Last Dose Time 0800 0800 O2 Saturation 97 % (92-99) Arterial Blood pH 7.58 (7.35-7.45) Arterial Blood pCO2 at Patient Temp 38 mmHg (35-46) Arterial Blood pO2 at Patient Temp 87 mmHg (75-108) Arterial Blood HCO3 34 mmol/L (21-28) Arterial Blood Base Excess 12 mmol/L (-3-3) FiO2 40 White Blood Count 16.3 x10^3/uL (4.0-11.0) Red Blood Count 4.72 x10^6/uL (4.30-5.70) Hemoglobin 13.5 g/dL (13.0-17.5) Hematocrit 40.3 % (39.0-53.0) Mean Corpuscular Volume 86 fL (79-100) Mean Corpuscular Hemoglobin 29 pg (25-35) Mean Corpuscular Hemoglobin Concent 33 g/dL (31-37) Red Cell Distribution Width 12.6 % (11.5-14.5) Platelet Count 267 x10^3/uL (140-400) Neutrophils (%) (Auto) 75 % (31-73) Lymphocytes (%) (Auto) 13 % (24-48) Monocytes (%) (Auto) 10 % (0-9) Eosinophils (%) (Auto) 2 % (0-3) Basophils (%) (Auto) 1 % (0-3) Neutrophils # (Auto) 12.2 x10^3uL (1.8-7.7) Lymphocytes # (Auto) 2.1 x10^3/uL (1.0-4.8) Monocytes # (Auto) 1.6 x10^3/uL (0.0-1.1) Eosinophils # (Auto) 0.2 x10^3/uL (0.0-0.7) Basophils # (Auto) 0.1 x10^3/uL (0.0-0.2) Laboratory Tests Test 12/11/18 14:30 12/11/18 17:00 12/11/18 19:29 12/11/18 21:05 O2 Saturation 98 % (92-99) Arterial Blood pH 7.47 (7.35-7.45) Arterial Blood pH (Temp corrected) 7.46 Arterial Blood pCO2 at Patient Temp 36 mmHg (35-46) Arterial Blood pCO2 (Temp correct) 38 mmHg Arterial Blood pO2 at Patient Temp 120 mmHg (75-108) Arterial Blood pO2 (Temp corrected) 125 mmHg Arterial Blood HCO3 26 mmol/L (21-28) Arterial Blood Base Excess 3 mmol/L (-3-3) FiO2 60 Sodium Level 137 mmol/L (136-145) 138 mmol/L (136-145) Potassium Level 4.3 mmol/L (3.5-5.1) 3.3 mmol/L (3.5-5.1) Chloride Level 96 mmol/L (98-107) 97 mmol/L (98-107) Carbon Dioxide Level 34 mmol/L (21-32) 33 mmol/L (21-32) Anion Gap 7 (6-14) 8 (6-14) Blood Urea Nitrogen 14 mg/dL (8-26) 14 mg/dL (8-26) Creatinine 1.0 mg/dL (0.7-1.3) 1.2 mg/dL (0.7-1.3) Estimated GFR (Cockcroft-Gault) 79.1 64.1 BUN/Creatinine Ratio 14 (6-20) 12 (6-20) Glucose Level 107 mg/dL (70-99) 114 mg/dL (70-99) Calcium Level 8.0 mg/dL (8.5-10.1) 7.9 mg/dL (8.5-10.1) Phosphorus Level 6.8 mg/dL (2.6-4.7) 5.3 mg/dL (2.6-4.7) Magnesium Level 2.1 mg/dL (1.8-2.4) 2.0 mg/dL (1.8-2.4) Total Bilirubin 0.3 mg/dL (0.2-1.0) 0.4 mg/dL (0.2-1.0) Aspartate Amino Transf (AST/SGOT) 26 U/L (15-37) 27 U/L (15-37) Alanine Aminotransferase (ALT/SGPT) 24 U/L (16-63) 25 U/L (16-63) Alkaline Phosphatase 63 U/L (46-116) 61 U/L (46-116) Total Protein 5.7 g/dL (6.4-8.2) 5.7 g/dL (6.4-8.2) Albumin 2.8 g/dL (3.4-5.0) 2.9 g/dL (3.4-5.0) Albumin/Globulin Ratio 1.0 (1.0-1.7) 1.0 (1.0-1.7) Salicylates Level 34.4 mg/dL (2.8-20.0) 34.8 mg/dL (2.8-20.0) Salicylate Last Dose Date 12/11/18 12/11/18 Salicylate Last Dose Time 0800 0800 Glucose (Fingerstick) 80 mg/dL (70-99) Test 12/11/18 21:17 12/12/18 00:10 12/12/18 02:55 12/12/18 05:45 Glucose (Fingerstick) 94 mg/dL (70-99) Sodium Level 137 mmol/L (136-145) 137 mmol/L (136-145) 136 mmol/L (136-145) Potassium Level 3.2 mmol/L (3.5-5.1) 3.2 mmol/L (3.5-5.1) 2.9 mmol/L (3.5-5.1) Chloride Level 96 mmol/L (98-107) 96 mmol/L (98-107) 96 mmol/L (98-107) Carbon Dioxide Level 35 mmol/L (21-32) 35 mmol/L (21-32) 35 mmol/L (21-32) Anion Gap 6 (6-14) 6 (6-14) 5 (6-14) Blood Urea Nitrogen 16 mg/dL (8-26) 15 mg/dL (8-26) 16 mg/dL (8-26) Creatinine 1.2 mg/dL (0.7-1.3) 1.2 mg/dL (0.7-1.3) 1.1 mg/dL (0.7-1.3) Estimated GFR (Cockcroft-Gault) 64.1 64.1 70.9 BUN/Creatinine Ratio 13 (6-20) 13 (6-20) 15 (6-20) Glucose Level 104 mg/dL (70-99) 108 mg/dL (70-99) 113 mg/dL (70-99) Calcium Level 7.6 mg/dL (8.5-10.1) 7.5 mg/dL (8.5-10.1) 7.5 mg/dL (8.5-10.1) Phosphorus Level 4.5 mg/dL (2.6-4.7) 4.1 mg/dL (2.6-4.7) 3.1 mg/dL (2.6-4.7) Magnesium Level 2.0 mg/dL (1.8-2.4) 1.9 mg/dL (1.8-2.4) 2.1 mg/dL (1.8-2.4) Total Bilirubin 0.4 mg/dL (0.2-1.0) 0.4 mg/dL (0.2-1.0) 0.4 mg/dL (0.2-1.0) Aspartate Amino Transf (AST/SGOT) 29 U/L (15-37) 36 U/L (15-37) 39 U/L (15-37) Alanine Aminotransferase (ALT/SGPT) 23 U/L (16-63) 23 U/L (16-63) 23 U/L (16-63) Alkaline Phosphatase 55 U/L (46-116) 57 U/L (46-116) 54 U/L (46-116) Total Protein 5.5 g/dL (6.4-8.2) 5.3 g/dL (6.4-8.2) 5.2 g/dL (6.4-8.2) Albumin 2.5 g/dL (3.4-5.0) 2.6 g/dL (3.4-5.0) 2.4 g/dL (3.4-5.0) Albumin/Globulin Ratio 0.8 (1.0-1.7) 1.0 (1.0-1.7) 0.9 (1.0-1.7) Salicylates Level 33.1 mg/dL (2.8-20.0) 29.8 mg/dL (2.8-20.0) 25.6 mg/dL (2.8-20.0) Salicylate Last Dose Date 12/11/18 Salicylate Last Dose Time 0800 Test 12/12/18 08:00 12/12/18 09:00 O2 Saturation 97 % (92-99) Arterial Blood pH 7.58 (7.35-7.45) Arterial Blood pCO2 at Patient Temp 38 mmHg (35-46) Arterial Blood pO2 at Patient Temp 87 mmHg (75-108) Arterial Blood HCO3 34 mmol/L (21-28) Arterial Blood Base Excess 12 mmol/L (-3-3) FiO2 40 White Blood Count 16.3 x10^3/uL (4.0-11.0) Red Blood Count 4.72 x10^6/uL (4.30-5.70) Hemoglobin 13.5 g/dL (13.0-17.5) Hematocrit 40.3 % (39.0-53.0) Mean Corpuscular Volume 86 fL (79-100) Mean Corpuscular Hemoglobin 29 pg (25-35) Mean Corpuscular Hemoglobin Concent 33 g/dL (31-37) Red Cell Distribution Width 12.6 % (11.5-14.5) Platelet Count 267 x10^3/uL (140-400) Neutrophils (%) (Auto) 75 % (31-73) Lymphocytes (%) (Auto) 13 % (24-48) Monocytes (%) (Auto) 10 % (0-9) Eosinophils (%) (Auto) 2 % (0-3) Basophils (%) (Auto) 1 % (0-3) Neutrophils # (Auto) 12.2 x10^3uL (1.8-7.7) Lymphocytes # (Auto) 2.1 x10^3/uL (1.0-4.8) Monocytes # (Auto) 1.6 x10^3/uL (0.0-1.1) Eosinophils # (Auto) 0.2 x10^3/uL (0.0-0.7) Basophils # (Auto) 0.1 x10^3/uL (0.0-0.2) Sodium Level 137 mmol/L (136-145) Potassium Level 2.7 mmol/L (3.5-5.1) Chloride Level 95 mmol/L (98-107) Carbon Dioxide Level 37 mmol/L (21-32) Anion Gap 5 (6-14) Blood Urea Nitrogen 16 mg/dL (8-26) Creatinine 1.0 mg/dL (0.7-1.3) Estimated GFR (Cockcroft-Gault) 79.1 BUN/Creatinine Ratio 16 (6-20) Glucose Level 112 mg/dL (70-99) Calcium Level 7.5 mg/dL (8.5-10.1) Phosphorus Level 2.7 mg/dL (2.6-4.7) Magnesium Level 2.1 mg/dL (1.8-2.4) Total Bilirubin 0.4 mg/dL (0.2-1.0) Aspartate Amino Transf (AST/SGOT) 42 U/L (15-37) Alanine Aminotransferase (ALT/SGPT) 23 U/L (16-63) Alkaline Phosphatase 52 U/L (46-116) Total Protein 5.2 g/dL (6.4-8.2) Albumin 2.4 g/dL (3.4-5.0) Albumin/Globulin Ratio 0.9 (1.0-1.7) Salicylates Level 21.9 mg/dL (2.8-20.0) Salicylate Last Dose Date 12/11/18 Salicylate Last Dose Time 0800 Medications Active Scripts Medications Dose Route/Sig Max Daily Dose Days Date Category Keflex (Cephalexin) 500 Mg Capsule 1 Cap PO QID 7 06/20/18 Rx Impression . IMPRESSION: 1. Acute respiratory failure secondary to salicylate intoxication. 2. Beta mariely intoxication. The patient is recently on metoprolol. 3. Metabolic toxic encephalopathy. 4. Hyponatremia. 5. Leukocytosis, suspect reactive. 6 FEVER Plan . D/W DR SANTAMARIA WILL D/C NAHCO3 DRIP AND D/C SEDATION SPOKE WITH RN WILL D/C SEDATION AND EXTUBATE D/W FAMILY EMPIRIC ANTIBX MAISHA NUNEZ MD Dec 12, 2018 14:04
[2018-12-12] MEDS ORDERED: PIP/TAZO PER PHARMACY MC PRN (14:15)
--- NOTE | 2018-12-12 14:30 | NUR ---
Spoke with Dr Sargent and order rec'd to turn off sedation, and ext without trial when pt fully awake. Family at bedside and al extubation plan explained to them. Potential for pt to wake up agitated and combative. Family aware of all our plans and concerns. IV patent with Levo. weaning down Levo as able. Labs changed to Q6hr.
[2018-12-12] MEDS: PIPERACILLIN/TAZOBACTAM 3.375 GM in IV NORMAL SALINE 50ML 50 ML IV SCH ×2 (14:52→23:50)
[2018-12-12] MEDS: ACETAMINOPHEN 325 MG TABLET. PO PRN (15:38)
[2018-12-12] MEDS: AMINO AC 3%/ELECTROLYTE/GLYCER 1,000 ML IV SCH ×2 (16:31→23:50)
--- NOTE | 2018-12-12 17:00 | NUR ---
Pt woke up calmly and was actually able to do 30 min SBT and jasmin very well. Pt was extubated w/o diff, remaining calm and placed on 2l n/c. NPO till AM. Levo weaned off. Fent and Versed were DC prior to ext. New IV placed Rt wrist. Family appreciative of care and at bedside. OG was removed as well. Pt able to speak w/o whisper. no wheezing noted. Able to follow all commands and answering simple questions. Pt was not aware of events of yesterday, asking family what happened, how did I get here
[2018-12-12 18:13] LABS: SALIC 11.1 mg/dL (2.8-20.0)
[2018-12-12 18:16] LABS: ALBUMIN 2.3 g/dL (3.4-5.0); ALBUMIN/GLOBULIN RATIO 0.9 (1.0-1.7); CALCIUM 7.9 mg/dL (8.5-10.1); GFR 79.1; MAGNESIUM 1.9 mg/dL (1.8-2.4); PHOSPHORUS 2.7 mg/dL (2.6-4.7); POTASSIUM 3.1 mmol/L (3.5-5.1); TOTAL BILIRUBIN 0.7 mg/dL (0.2-1.0); TOTAL PROTEIN 4.8 g/dL (6.4-8.2)
[2018-12-12] MEDS ORDERED: IV NORMAL SALINE 1000ML BAG 1,000 ML IV ONE (19:00)
[2018-12-12] MEDS: NICOTINE 21MG PATCH. TD SCH (23:50)
[2018-12-13] VITALS (26 sets, daily range): BP systolic 121–201; BP diastolic 69–110
[2018-12-13 02:30] LABS: SALIC 6.2 mg/dL (2.8-20.0)
--- NOTE | 2018-12-13 04:14 | NUR ---
Patient verbalizes that he does not have the desire to attempt suicide anymore. He feels that a couple of things lead up to the attempt on 12/11. He said that he was struck in the side of his head (left temporal) by a tree branch at work in April of 2018, and that ever since then, he has been becoming more and more paranoid. States, "I feel like everyone is out to get me." Also, he recently quit smoking cigarettes and took up using a vaping pen in place of the cigarettes. He said that he had accidentally filled the vaping pen with ear drops and that is when "things really got crazy." He said his blood pressure was through the roof (250s systolic) and that he had gone to the hospital ([facility]). "They straightened everything out, so I went home. I started using that pen thing again, and it all started over. Then the hospital labeled me as 'having a history of substance abuse' so I left again." The patient also mentioned to me that he has been under a lot of stress at work lately and that he wants to find a better way to cope with stress. I told him that the PAT team would be here today to give him some useful resources. He has 12 children and has repeatedly expressed that he hopes "my kids and my parents aren't too upset with me." He feels remorseful and repeats "what a stupid thing I did."
[2018-12-13] MEDS: PIPERACILLIN/TAZOBACTAM 3.375 GM in IV NORMAL SALINE 50ML 50 ML IV SCH ×2 (05:30→12:00)
[2018-12-13 06:14] LABS: BASO % 0 % (0-3); EOS # 0.2 x10^3/uL (0.0-0.7); EOS % 2 % (0-3); HEMATOCRIT 37.5 % (39.0-53.0); HEMOGLOBIN 12.6 g/dL (13.0-17.5); LYMPH # 1.5 x10^3/uL (1.0-4.8); LYMPH % 10 % (24-48); MEAN CORPUSCULAR HEMOGLOBIN 29 pg (25-35); MEAN CORPUSCULAR HGB CONC 34 g/dL (31-37); MEAN CORPUSCULAR VOLUME 87 fL (79-100); MONO # 1.1 x10^3/uL (0.0-1.1); MONO % 8 % (0-9); NEUT # 11.4 x10^3uL (1.8-7.7); NEUT % 80 % (31-73); PLATELET COUNT 207 x10^3/uL (140-400); RED BLOOD COUNT 4.33 x10^6/uL (4.30-5.70); RED CELL DISTRIBUTION WIDTH 12.6 % (11.5-14.5); WHITE BLOOD COUNT 14.2 x10^3/uL (4.0-11.0)
[2018-12-13 06:39] LABS: ALBUMIN 2.2 g/dL (3.4-5.0); ALBUMIN/GLOBULIN RATIO 0.7 (1.0-1.7); CALCIUM 8.2 mg/dL (8.5-10.1); CREATININE 0.8 mg/dL (0.7-1.3); GFR 102.3; MAGNESIUM 2.1 mg/dL (1.8-2.4); TOTAL BILIRUBIN 0.7 mg/dL (0.2-1.0); TOTAL PROTEIN 5.3 g/dL (6.4-8.2)
[2018-12-13 06:45] LABS: SALIC 3.7 mg/dL (2.8-20.0)
[2018-12-13] MEDS: IV NORMAL SALINE 1000ML BAG 1,000 ML IV SCH ×2 (08:00→21:05)
--- NOTE | 2018-12-13 08:00 | NUR ---
Pt in ICU 1;1 status for suicide attempt . Sitter in room following protocol
[2018-12-13] MEDS: hydrALAZINE 20 MG/ML VIAL. IVP PRN (08:30)
--- NOTE | 2018-12-13 08:31 | RAD ---
Portable chest, 12/13/2018: HISTORY: Respiratory failure Comparison is made to yesterday's study. The ET tube and NG tube have been removed. The heart size is normal. No pulmonary infiltrate is seen. There is no evidence of pleural fluid. IMPRESSION: No acute cardiopulmonary abnormality is detected. Electronically signed by: Rey Zaragoza MD (12/13/2018 8:29 AM) [facility]
[2018-12-13] MEDS: NICOTINE 21MG PATCH. TD SCH (09:00)
--- NOTE | 2018-12-13 09:00 | NUR ---
Spoke with Dr Wang. Orders rec'd for elevated BP as well as anxiety med as pt seems restless, shaking, flushed. Nursing bedside swallow eval done and pt did very well. Wioll offer breakfast and fluids. Denies any discomfort. arm dsgs changed No fever today. Good UO
--- NOTE | 2018-12-13 09:18 | PDOC ---
PULMONARY PROGRESS NOTES Subjective EXTUBATED 12/12 NOW SORE THROAT Vitals Vital Signs Date Time Temp Pulse Resp B/P (MAP) Pulse Ox O2 Delivery O2 Flow Rate FiO2 12/13/18 09:00 103 18 191/93 (125) 96 Room Air 12/13/18 07:00 98.4 98.4 12/13/18 04:08 2.0 ROS: No Nausea, No Chest Pain, No Abdominal Pain, No Increase Cough Lungs: Clear Cardiovascular: S1, S2 Abdomen: Soft Neuro Exam: Alert Extremities: No Edema Skin: Warm Labs Laboratory Tests Test 12/11/18 10:00 12/11/18 10:03 12/11/18 10:19 12/11/18 10:22 Lactic Acid Level 2.1 mmol/L (0.4-2.0) White Blood Count 24.8 x10^3/uL (4.0-11.0) Red Blood Count 5.52 x10^6/uL (4.30-5.70) Hemoglobin 16.3 g/dL (13.0-17.5) Hematocrit 47.3 % (39.0-53.0) Mean Corpuscular Volume 86 fL (79-100) Mean Corpuscular Hemoglobin 30 pg (25-35) Mean Corpuscular Hemoglobin Concent 34 g/dL (31-37) Red Cell Distribution Width 12.5 % (11.5-14.5) Platelet Count 365 x10^3/uL (140-400) Neutrophils (%) (Auto) 89 % (31-73) Lymphocytes (%) (Auto) 5 % (24-48) Monocytes (%) (Auto) 5 % (0-9) Eosinophils (%) (Auto) 0 % (0-3) Basophils (%) (Auto) 1 % (0-3) Neutrophils # (Auto) 22.0 x10^3uL (1.8-7.7) Lymphocytes # (Auto) 1.3 x10^3/uL (1.0-4.8) Monocytes # (Auto) 1.3 x10^3/uL (0.0-1.1) Eosinophils # (Auto) 0.0 x10^3/uL (0.0-0.7) Basophils # (Auto) 0.1 x10^3/uL (0.0-0.2) Segmented Neutrophils % 87 % (35-66) Band Neutrophils % 3 % (0-9) Lymphocytes % 7 % (24-48) Monocytes % 3 % (0-10) Platelet Estimate Adequate (ADEQUATE) Sodium Level 129 mmol/L (136-145) Potassium Level 4.6 mmol/L (3.5-5.1) Chloride Level 92 mmol/L (98-107) Carbon Dioxide Level 25 mmol/L (21-32) Anion Gap 12 (6-14) Blood Urea Nitrogen 8 mg/dL (8-26) Creatinine 0.7 mg/dL (0.7-1.3) Estimated GFR (Cockcroft-Gault) 119.4 BUN/Creatinine Ratio 11 (6-20) Glucose Level 102 mg/dL (70-99) Calcium Level 9.1 mg/dL (8.5-10.1) Total Bilirubin 0.4 mg/dL (0.2-1.0) Aspartate Amino Transf (AST/SGOT) 25 U/L (15-37) Alanine Aminotransferase (ALT/SGPT) 29 U/L (16-63) Alkaline Phosphatase 79 U/L (46-116) Total Protein 7.6 g/dL (6.4-8.2) Albumin 3.6 g/dL (3.4-5.0) Albumin/Globulin Ratio 0.9 (1.0-1.7) Salicylates Level 39.7 mg/dL (2.8-20.0) Salicylate Last Dose Date Unknown Salicylate Last Dose Time Unknown Acetaminophen Level < 2 mcg/ml (10-30) Acetaminophen Last Dose Date Unknown Acetaminophen Last Dose Time Unknown Ethyl Alcohol Level < 10 mg/dL (0-10) O2 Saturation 99 % (92-99) Arterial Blood pH 7.35 (7.35-7.45) Arterial Blood pCO2 at Patient Temp 36 mmHg (35-46) Arterial Blood pO2 at Patient Temp 189 mmHg (75-108) Arterial Blood HCO3 20 mmol/L (21-28) Arterial Blood Base Excess -5 mmol/L (-3-3) Oxyhemoglobin 98.3 % Methemoglobin 0.3 % (0.0-1.9) Carbon Monoxide, Quantitative 0.3 % (0.0-1.9) FiO2 100 Urine Collection Type Unknown Urine Color Yellow Urine Clarity Clear Urine pH 6.5 Urine Specific [place] 1.015 Urine Protein Negative mg/dL (NEG-TRACE) Urine Glucose (UA) Negative mg/dL (NEG) Urine Ketones (Stick) Negative mg/dL (NEG) Urine Blood Negative (NEG) Urine Nitrite Negative (NEG) Urine Bilirubin Negative (NEG) Urine Urobilinogen Dipstick 0.2 mg/dL (0.2 mg/dL) Urine Leukocyte Esterase Negative (NEG) Urine RBC 0 /HPF (0-2) Urine WBC 0 /HPF (0-4) Urine Squamous Epithelial Cells Occ /LPF Urine Amorphous Sediment Present /HPF Urine Bacteria 0 /HPF (0-FEW) Urine Hyaline Casts Occasional /HPF Urine Mucus Mod /LPF Urine Opiates Screen Neg (NEG) Urine Methadone Screen Neg (NEG) Urine Barbiturates Neg (NEG) Urine Phencyclidine Screen Neg (NEG) Urine Amphetamine/Methamphetamine Neg (NEG) Urine Benzodiazepines Screen Neg (NEG) Urine Cocaine Screen Neg (NEG) Urine Cannabinoids Screen Neg (NEG) Urine Ethyl Alcohol Neg (NEG) Test 12/11/18 13:15 12/11/18 14:30 12/11/18 17:00 12/11/18 19:25 Lactic Acid Level 1.3 mmol/L (0.4-2.0) Salicylates Level 38.5 mg/dL (2.8-20.0) 34.4 mg/dL (2.8-20.0) Salicylate Last Dose Date Unknown 12/11/18 Salicylate Last Dose Time Unknown 0800 O2 Saturation 98 % (92-99) Arterial Blood pH 7.47 (7.35-7.45) Arterial Blood pH (Temp corrected) 7.46 Arterial Blood pCO2 at Patient Temp 36 mmHg (35-46) Arterial Blood pCO2 (Temp correct) 38 mmHg Arterial Blood pO2 at Patient Temp 120 mmHg (75-108) Arterial Blood pO2 (Temp corrected) 125 mmHg Arterial Blood HCO3 26 mmol/L (21-28) Arterial Blood Base Excess 3 mmol/L (-3-3) FiO2 60 Sodium Level 137 mmol/L (136-145) Potassium Level 4.3 mmol/L (3.5-5.1) Chloride Level 96 mmol/L (98-107) Carbon Dioxide Level 34 mmol/L (21-32) Anion Gap 7 (6-14) Blood Urea Nitrogen 14 mg/dL (8-26) Creatinine 1.0 mg/dL (0.7-1.3) Estimated GFR (Cockcroft-Gault) 79.1 BUN/Creatinine Ratio 14 (6-20) Glucose Level 107 mg/dL (70-99) Calcium Level 8.0 mg/dL (8.5-10.1) Phosphorus Level 6.8 mg/dL (2.6-4.7) Magnesium Level 2.1 mg/dL (1.8-2.4) Total Bilirubin 0.3 mg/dL (0.2-1.0) Aspartate Amino Transf (AST/SGOT) 26 U/L (15-37) Alanine Aminotransferase (ALT/SGPT) 24 U/L (16-63) Alkaline Phosphatase 63 U/L (46-116) Total Protein 5.7 g/dL (6.4-8.2) Albumin 2.8 g/dL (3.4-5.0) Albumin/Globulin Ratio 1.0 (1.0-1.7) Nasal Screen MRSA (PCR) Negative (Negative) Test 12/11/18 19:29 12/11/18 21:05 12/11/18 21:17 12/12/18 00:10 Glucose (Fingerstick) 80 mg/dL (70-99) 94 mg/dL (70-99) Sodium Level 138 mmol/L (136-145) 137 mmol/L (136-145) Potassium Level 3.3 mmol/L (3.5-5.1) 3.2 mmol/L (3.5-5.1) Chloride Level 97 mmol/L (98-107) 96 mmol/L (98-107) Carbon Dioxide Level 33 mmol/L (21-32) 35 mmol/L (21-32) Anion Gap 8 (6-14) 6 (6-14) Blood Urea Nitrogen 14 mg/dL (8-26) 16 mg/dL (8-26) Creatinine 1.2 mg/dL (0.7-1.3) 1.2 mg/dL (0.7-1.3) Estimated GFR (Cockcroft-Gault) 64.1 64.1 BUN/Creatinine Ratio 12 (6-20) 13 (6-20) Glucose Level 114 mg/dL (70-99) 104 mg/dL (70-99) Calcium Level 7.9 mg/dL (8.5-10.1) 7.6 mg/dL (8.5-10.1) Phosphorus Level 5.3 mg/dL (2.6-4.7) 4.5 mg/dL (2.6-4.7) Magnesium Level 2.0 mg/dL (1.8-2.4) 2.0 mg/dL (1.8-2.4) Total Bilirubin 0.4 mg/dL (0.2-1.0) 0.4 mg/dL (0.2-1.0) Aspartate Amino Transf (AST/SGOT) 27 U/L (15-37) 29 U/L (15-37) Alanine Aminotransferase (ALT/SGPT) 25 U/L (16-63) 23 U/L (16-63) Alkaline Phosphatase 61 U/L (46-116) 55 U/L (46-116) Total Protein 5.7 g/dL (6.4-8.2) 5.5 g/dL (6.4-8.2) Albumin 2.9 g/dL (3.4-5.0) 2.5 g/dL (3.4-5.0) Albumin/Globulin Ratio 1.0 (1.0-1.7) 0.8 (1.0-1.7) Salicylates Level 34.8 mg/dL (2.8-20.0) 33.1 mg/dL (2.8-20.0) Salicylate Last Dose Date 12/11/18 Salicylate Last Dose Time 0800 Test 12/12/18 02:55 12/12/18 05:45 12/12/18 08:00 12/12/18 09:00 Sodium Level 137 mmol/L (136-145) 136 mmol/L (136-145) 137 mmol/L (136-145) Potassium Level 3.2 mmol/L (3.5-5.1) 2.9 mmol/L (3.5-5.1) 2.7 mmol/L (3.5-5.1) Chloride Level 96 mmol/L (98-107) 96 mmol/L (98-107) 95 mmol/L (98-107) Carbon Dioxide Level 35 mmol/L (21-32) 35 mmol/L (21-32) 37 mmol/L (21-32) Anion Gap 6 (6-14) 5 (6-14) 5 (6-14) Blood Urea Nitrogen 15 mg/dL (8-26) 16 mg/dL (8-26) 16 mg/dL (8-26) Creatinine 1.2 mg/dL (0.7-1.3) 1.1 mg/dL (0.7-1.3) 1.0 mg/dL (0.7-1.3) Estimated GFR (Cockcroft-Gault) 64.1 70.9 79.1 BUN/Creatinine Ratio 13 (6-20) 15 (6-20) 16 (6-20) Glucose Level 108 mg/dL (70-99) 113 mg/dL (70-99) 112 mg/dL (70-99) Calcium Level 7.5 mg/dL (8.5-10.1) 7.5 mg/dL (8.5-10.1) 7.5 mg/dL (8.5-10.1) Phosphorus Level 4.1 mg/dL (2.6-4.7) 3.1 mg/dL (2.6-4.7) 2.7 mg/dL (2.6-4.7) Magnesium Level 1.9 mg/dL (1.8-2.4) 2.1 mg/dL (1.8-2.4) 2.1 mg/dL (1.8-2.4) Total Bilirubin 0.4 mg/dL (0.2-1.0) 0.4 mg/dL (0.2-1.0) 0.4 mg/dL (0.2-1.0) Aspartate Amino Transf (AST/SGOT) 36 U/L (15-37) 39 U/L (15-37) 42 U/L (15-37) Alanine Aminotransferase (ALT/SGPT) 23 U/L (16-63) 23 U/L (16-63) 23 U/L (16-63) Alkaline Phosphatase 57 U/L (46-116) 54 U/L (46-116) 52 U/L (46-116) Total Protein 5.3 g/dL (6.4-8.2) 5.2 g/dL (6.4-8.2) 5.2 g/dL (6.4-8.2) Albumin 2.6 g/dL (3.4-5.0) 2.4 g/dL (3.4-5.0) 2.4 g/dL (3.4-5.0) Albumin/Globulin Ratio 1.0 (1.0-1.7) 0.9 (1.0-1.7) 0.9 (1.0-1.7) Salicylates Level 29.8 mg/dL (2.8-20.0) 25.6 mg/dL (2.8-20.0) 21.9 mg/dL (2.8-20.0) Salicylate Last Dose Date 12/11/18 12/11/18 Salicylate Last Dose Time 0800 0800 O2 Saturation 97 % (92-99) Arterial Blood pH 7.58 (7.35-7.45) Arterial Blood pCO2 at Patient Temp 38 mmHg (35-46) Arterial Blood pO2 at Patient Temp 87 mmHg (75-108) Arterial Blood HCO3 34 mmol/L (21-28) Arterial Blood Base Excess 12 mmol/L (-3-3) FiO2 40 White Blood Count 16.3 x10^3/uL (4.0-11.0) Red Blood Count 4.72 x10^6/uL (4.30-5.70) Hemoglobin 13.5 g/dL (13.0-17.5) Hematocrit 40.3 % (39.0-53.0) Mean Corpuscular Volume 86 fL (79-100) Mean Corpuscular Hemoglobin 29 pg (25-35) Mean Corpuscular Hemoglobin Concent 33 g/dL (31-37) Red Cell Distribution Width 12.6 % (11.5-14.5) Platelet Count 267 x10^3/uL (140-400) Neutrophils (%) (Auto) 75 % (31-73) Lymphocytes (%) (Auto) 13 % (24-48) Monocytes (%) (Auto) 10 % (0-9) Eosinophils (%) (Auto) 2 % (0-3) Basophils (%) (Auto) 1 % (0-3) Neutrophils # (Auto) 12.2 x10^3uL (1.8-7.7) Lymphocytes # (Auto) 2.1 x10^3/uL (1.0-4.8) Monocytes # (Auto) 1.6 x10^3/uL (0.0-1.1) Eosinophils # (Auto) 0.2 x10^3/uL (0.0-0.7) Basophils # (Auto) 0.1 x10^3/uL (0.0-0.2) Test 12/12/18 17:55 12/13/18 01:55 12/13/18 06:00 Sodium Level 137 mmol/L (136-145) 136 mmol/L (136-145) Potassium Level 3.1 mmol/L (3.5-5.1) 3.0 mmol/L (3.5-5.1) Chloride Level 97 mmol/L (98-107) 98 mmol/L (98-107) Carbon Dioxide Level 33 mmol/L (21-32) 32 mmol/L (21-32) Anion Gap 7 (6-14) 6 (6-14) Blood Urea Nitrogen 15 mg/dL (8-26) 14 mg/dL (8-26) Creatinine 1.0 mg/dL (0.7-1.3) 0.8 mg/dL (0.7-1.3) Estimated GFR (Cockcroft-Gault) 79.1 102.3 BUN/Creatinine Ratio 15 (6-20) 18 (6-20) Glucose Level 93 mg/dL (70-99) 98 mg/dL (70-99) Calcium Level 7.9 mg/dL (8.5-10.1) 8.2 mg/dL (8.5-10.1) Phosphorus Level 2.7 mg/dL (2.6-4.7) 2.0 mg/dL (2.6-4.7) Magnesium Level 1.9 mg/dL (1.8-2.4) 2.1 mg/dL (1.8-2.4) Total Bilirubin 0.7 mg/dL (0.2-1.0) 0.7 mg/dL (0.2-1.0) Aspartate Amino Transf (AST/SGOT) 62 U/L (15-37) 80 U/L (15-37) Alanine Aminotransferase (ALT/SGPT) 26 U/L (16-63) 31 U/L (16-63) Alkaline Phosphatase 53 U/L (46-116) 51 U/L (46-116) Total Protein 4.8 g/dL (6.4-8.2) 5.3 g/dL (6.4-8.2) Albumin 2.3 g/dL (3.4-5.0) 2.2 g/dL (3.4-5.0) Albumin/Globulin Ratio 0.9 (1.0-1.7) 0.7 (1.0-1.7) Salicylates Level 11.1 mg/dL (2.8-20.0) 6.2 mg/dL (2.8-20.0) 3.7 mg/dL (2.8-20.0) Salicylate Last Dose Date Unk 12/11/18 12/11/18 Salicylate Last Dose Time Unk 0800 0800 White Blood Count 14.2 x10^3/uL (4.0-11.0) Red Blood Count 4.33 x10^6/uL (4.30-5.70) Hemoglobin 12.6 g/dL (13.0-17.5) Hematocrit 37.5 % (39.0-53.0) Mean Corpuscular Volume 87 fL (79-100) Mean Corpuscular Hemoglobin 29 pg (25-35) Mean Corpuscular Hemoglobin Concent 34 g/dL (31-37) Red Cell Distribution Width 12.6 % (11.5-14.5) Platelet Count 207 x10^3/uL (140-400) Neutrophils (%) (Auto) 80 % (31-73) Lymphocytes (%) (Auto) 10 % (24-48) Monocytes (%) (Auto) 8 % (0-9) Eosinophils (%) (Auto) 2 % (0-3) Basophils (%) (Auto) 0 % (0-3) Neutrophils # (Auto) 11.4 x10^3uL (1.8-7.7) Lymphocytes # (Auto) 1.5 x10^3/uL (1.0-4.8) Monocytes # (Auto) 1.1 x10^3/uL (0.0-1.1) Eosinophils # (Auto) 0.2 x10^3/uL (0.0-0.7) Basophils # (Auto) 0.0 x10^3/uL (0.0-0.2) Laboratory Tests Test 12/12/18 17:55 12/13/18 01:55 12/13/18 06:00 Sodium Level 137 mmol/L (136-145) 136 mmol/L (136-145) Potassium Level 3.1 mmol/L (3.5-5.1) 3.0 mmol/L (3.5-5.1) Chloride Level 97 mmol/L (98-107) 98 mmol/L (98-107) Carbon Dioxide Level 33 mmol/L (21-32) 32 mmol/L (21-32) Anion Gap 7 (6-14) 6 (6-14) Blood Urea Nitrogen 15 mg/dL (8-26) 14 mg/dL (8-26) Creatinine 1.0 mg/dL (0.7-1.3) 0.8 mg/dL (0.7-1.3) Estimated GFR (Cockcroft-Gault) 79.1 102.3 BUN/Creatinine Ratio 15 (6-20) 18 (6-20) Glucose Level 93 mg/dL (70-99) 98 mg/dL (70-99) Calcium Level 7.9 mg/dL (8.5-10.1) 8.2 mg/dL (8.5-10.1) Phosphorus Level 2.7 mg/dL (2.6-4.7) 2.0 mg/dL (2.6-4.7) Magnesium Level 1.9 mg/dL (1.8-2.4) 2.1 mg/dL (1.8-2.4) Total Bilirubin 0.7 mg/dL (0.2-1.0) 0.7 mg/dL (0.2-1.0) Aspartate Amino Transf (AST/SGOT) 62 U/L (15-37) 80 U/L (15-37) Alanine Aminotransferase (ALT/SGPT) 26 U/L (16-63) 31 U/L (16-63) Alkaline Phosphatase 53 U/L (46-116) 51 U/L (46-116) Total Protein 4.8 g/dL (6.4-8.2) 5.3 g/dL (6.4-8.2) Albumin 2.3 g/dL (3.4-5.0) 2.2 g/dL (3.4-5.0) Albumin/Globulin Ratio 0.9 (1.0-1.7) 0.7 (1.0-1.7) Salicylates Level 11.1 mg/dL (2.8-20.0) 6.2 mg/dL (2.8-20.0) 3.7 mg/dL (2.8-20.0) Salicylate Last Dose Date Unk 12/11/18 12/11/18 Salicylate Last Dose Time Unk 0800 0800 White Blood Count 14.2 x10^3/uL (4.0-11.0) Red Blood Count 4.33 x10^6/uL (4.30-5.70) Hemoglobin 12.6 g/dL (13.0-17.5) Hematocrit 37.5 % (39.0-53.0) Mean Corpuscular Volume 87 fL (79-100) Mean Corpuscular Hemoglobin 29 pg (25-35) Mean Corpuscular Hemoglobin Concent 34 g/dL (31-37) Red Cell Distribution Width 12.6 % (11.5-14.5) Platelet Count 207 x10^3/uL (140-400) Neutrophils (%) (Auto) 80 % (31-73) Lymphocytes (%) (Auto) 10 % (24-48) Monocytes (%) (Auto) 8 % (0-9) Eosinophils (%) (Auto) 2 % (0-3) Basophils (%) (Auto) 0 % (0-3) Neutrophils # (Auto) 11.4 x10^3uL (1.8-7.7) Lymphocytes # (Auto) 1.5 x10^3/uL (1.0-4.8) Monocytes # (Auto) 1.1 x10^3/uL (0.0-1.1) Eosinophils # (Auto) 0.2 x10^3/uL (0.0-0.7) Basophils # (Auto) 0.0 x10^3/uL (0.0-0.2) Medications Active Scripts Medications Dose Route/Sig Max Daily Dose Days Date Category Keflex (Cephalexin) 500 Mg Capsule 1 Cap PO QID 7 06/20/18 Rx Impression . IMPRESSION: 1. Acute respiratory failure secondary to salicylate intoxication. 2. Beta mariely intoxication. The patient is recently on metoprolol. 3. Metabolic toxic encephalopathy. 4. Hyponatremia. 5. Leukocytosis, suspect reactive. 6 FEVER Plan . D/W DR SANTAMARIA RESP STATUS IS COMPENSATED WILL S/O THANKS CALL IF NEEDED CONTINUE AUGMENTIN FOR TOTAL OF 10 DAYS MAISHA NUNEZ MD Dec 13, 2018 09:18
[2018-12-13] MEDS: POTASSIUM CHLORIDE 20 MEQ TABLET.ER. PO SCH ×3 (09:58→13:14)
--- NOTE | 2018-12-13 10:31 | NUR ---
SS following up with discharge planning. Pt now stable to meet with PAT team. SS contacted Williams with PAT team and notified. Williams coming to evaluate and assess pt today.
--- NOTE | 2018-12-13 10:41 | PDOC ---
PROGRESS NOTES History of Present Illness History of Present Illness ASSESSMENT AND PLAN: Suicide attempt attempt at STRANGLING self with electric cord, failed to work , slitting his wrist aspirin overdose . HX ALCOHOL ABUSE, FAMILY STATES HE DRINKS A LOT DRINKS OFTEN malignant hypertension, severe EXTREME SOCIAL STRESSORS hypokalemia No acute fracture of the cervical spine.on ct very worried about finances, business , tax liability. no previous suicide attempts admitted to the ICU // extubated Pulmonary following consult Nephrology // aspirin overdose. [facility] planned Frequent labs. DVT prophylaxis. Full code iv hydralazine 20 mg x 1 now d/w rn inc toprol xl to 50mg po daily psychiatric evaluation needed Prognosis is guarded urine drug screen frequent labs cardiology consult HIGH RISK OF SUICIDE IN NEAR FUTURE// MIDDLE AGE MALE// ETOH ABUSE Total time on this critically ill patient 39 minutes. Vitals Vitals Vital Signs Date Time Temp Pulse Resp B/P (MAP) Pulse Ox O2 Delivery O2 Flow Rate FiO2 12/13/18 10:00 95 22 198/105 (136) 98 Room Air 12/13/18 07:00 98.4 98.4 12/13/18 04:08 2.0 Physical Exam Physical Exam HEART: Tachy S1, S2. LUNGS: cta ABDOMEN: Soft and distended. EXTREMITIES: Trace edema. blood on the bottom of his feet, hands and under his nails. The wrist has been slit on the right and the left. ENDOCRINE: No thyromegaly. LYMPHATICS: No cervical nodes. HEMATOPOIETIC: mild bruising on his neck. 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 General: Alert, Oriented X3, Cooperative, mild distress, Other ( off vent, alert) Heart: Regular rate, Normal S1, Normal S2, No murmurs Lungs: Clear, Crackles Abdomen: Normal bowel sounds, Soft, Other Extremities: No clubbing, No cyanosis, No edema Skin: No breakdown Labs LABS [address] [id number] Test Date: 2018-12-11 Test Time: 10:12:37 Pat Name: HOSSEIN ZEE Department: Room: Gender: M [employer]: : 1970 Requested By: RODRI NG Order Number: [id number] Reading MD: Abisai Zuniga MD Measurements Intervals [place] Rate: 99 P: 51 AR: 146 QRS: 26 QRSD: 76 T: 54 QT: 346 QTc: 449 Interpretive Statements SINUS RHYTHM ANTERIOR ST SEGMENT CHANGES, NON-SPECIFIC, CORRELATE CLINICALLY Electronically Signed On 12-11-2018 11:12:56 CDT by Abisai Zuniga MD SEX: M EXAM STATUS: ADM IN ORD. PHYSICIAN: MAISHA NUNEZ MD REASON: RF PROCEDURE: PORTABLE CHEST 1V Portable chest, 12/13/2018: HISTORY: Respiratory failure Comparison is made to yesterday's study. The ET tube and NG tube have been removed. The heart size is normal. No pulmonary infiltrate is seen. There is no evidence of pleural fluid. IMPRESSION: No acute cardiopulmonary abnormality is detected. Electronically signed by: Rey Zaragoza MD (12/13/2018 8:29 AM) [facility] DICTATED and SIGNED BY: REY ZARAGOZA MD DATE: 12/13/18828 sTATUS: REG ER ORD. PHYSICIAN: RODRI NG DO REASON: trauma PROCEDURE: [facility] Compliance Statement: One or more of the following individualized dose reduction techniques were utilized for this examination: 1. Automated exposure control 2. Adjustment of the mA and/or kV according to patient size 3. Use of iterative reconstruction technique CT HEAD AND CERVICAL SPINE WITHOUT CONTRAST History: TRAUMA. AMS. INTUBATED Comparison: CT head and cervical spine without contrast, June 20, 2018. Procedure: Axial images are obtained of the head from the skull base through the vertex without IV contrast. Noncontrast helical CT of the cervical spine was performed. Axial, sagittal, and coronal reconstructions were obtained. Findings: The ventricles and sulci are normal for the patient's age. No mass-effect, midline shift, hemorrhage or obvious acute infarction is identified. Basilar cisterns are patent. Bone windows demonstrate no significant calvarial abnormality. Mild bilateral ethmoid sinus mucosal thickening. Tiny right maxillary sinus mucous retention cyst or polyp. Mastoid air cells are well aerated. There is no evidence of acute fracture or acute malalignment of the cervical spine. The facet joints are intact. The vertebral body height and alignment are maintained. There is degenerative spondylosis of C5/C6. The craniovertebral junction is maintained. Visualized soft tissues of the neck demonstrate no significant abnormalities. There is opacity in the posterior right lung apex. Endotracheal and enteric tubes are noted. IMPRESSION: 1. No acute intracranial abnormality. 2. No acute fracture of the cervical spine. Electronically signed by: Geo Frank MD (12/11/2018 11:17 AM) [id number] DICTATED and SIGNED BY: GEO FRANK MD DATE: 12/11/18 1117 Laboratory Tests Test 12/12/18 17:55 12/13/18 01:55 12/13/18 06:00 Sodium Level 137 mmol/L (136-145) 136 mmol/L (136-145) Potassium Level 3.1 mmol/L (3.5-5.1) 3.0 mmol/L (3.5-5.1) Chloride Level 97 mmol/L (98-107) 98 mmol/L (98-107) Carbon Dioxide Level 33 mmol/L (21-32) 32 mmol/L (21-32) Anion Gap 7 (6-14) 6 (6-14) Blood Urea Nitrogen 15 mg/dL (8-26) 14 mg/dL (8-26) Creatinine 1.0 mg/dL (0.7-1.3) 0.8 mg/dL (0.7-1.3) Estimated GFR (Cockcroft-Gault) 79.1 102.3 BUN/Creatinine Ratio 15 (6-20) 18 (6-20) Glucose Level 93 mg/dL (70-99) 98 mg/dL (70-99) Calcium Level 7.9 mg/dL (8.5-10.1) 8.2 mg/dL (8.5-10.1) Phosphorus Level 2.7 mg/dL (2.6-4.7) 2.0 mg/dL (2.6-4.7) Magnesium Level 1.9 mg/dL (1.8-2.4) 2.1 mg/dL (1.8-2.4) Total Bilirubin 0.7 mg/dL (0.2-1.0) 0.7 mg/dL (0.2-1.0) Aspartate Amino Transf (AST/SGOT) 62 U/L (15-37) 80 U/L (15-37) Alanine Aminotransferase (ALT/SGPT) 26 U/L (16-63) 31 U/L (16-63) Alkaline Phosphatase 53 U/L (46-116) 51 U/L (46-116) Total Protein 4.8 g/dL (6.4-8.2) 5.3 g/dL (6.4-8.2) Albumin 2.3 g/dL (3.4-5.0) 2.2 g/dL (3.4-5.0) Albumin/Globulin Ratio 0.9 (1.0-1.7) 0.7 (1.0-1.7) Salicylates Level 11.1 mg/dL (2.8-20.0) 6.2 mg/dL (2.8-20.0) 3.7 mg/dL (2.8-20.0) Salicylate Last Dose Date Unk 12/11/18 12/11/18 Salicylate Last Dose Time Unk 0800 0800 White Blood Count 14.2 x10^3/uL (4.0-11.0) Red Blood Count 4.33 x10^6/uL (4.30-5.70) Hemoglobin 12.6 g/dL (13.0-17.5) Hematocrit 37.5 % (39.0-53.0) Mean Corpuscular Volume 87 fL (79-100) Mean Corpuscular Hemoglobin 29 pg (25-35) Mean Corpuscular Hemoglobin Concent 34 g/dL (31-37) Red Cell Distribution Width 12.6 % (11.5-14.5) Platelet Count 207 x10^3/uL (140-400) Neutrophils (%) (Auto) 80 % (31-73) Lymphocytes (%) (Auto) 10 % (24-48) Monocytes (%) (Auto) 8 % (0-9) Eosinophils (%) (Auto) 2 % (0-3) Basophils (%) (Auto) 0 % (0-3) Neutrophils # (Auto) 11.4 x10^3uL (1.8-7.7) Lymphocytes # (Auto) 1.5 x10^3/uL (1.0-4.8) Monocytes # (Auto) 1.1 x10^3/uL (0.0-1.1) Eosinophils # (Auto) 0.2 x10^3/uL (0.0-0.7) Basophils # (Auto) 0.0 x10^3/uL (0.0-0.2) Assessment and Plan Assessmemt and Plan Problems Medical Problems: (1) Laceration of left forearm Status: Acute (2) Laceration of left wrist Status: Acute (3) Laceration of right forearm Status: Acute (4) Salicylate overdose Status: Acute (5) Suicide attempt by beta mariely overdose Status: Acute (6) Suicide attempt by hanging Status: Acute Comment Review of Relevant I have reviewed the following items danis (where applicable) has been applied. Labs Laboratory Tests Test 12/11/18 13:15 12/11/18 14:30 12/11/18 17:00 12/11/18 19:25 Lactic Acid Level 1.3 mmol/L (0.4-2.0) Salicylates Level 38.5 mg/dL (2.8-20.0) 34.4 mg/dL (2.8-20.0) Salicylate Last Dose Date Unknown 12/11/18 Salicylate Last Dose Time Unknown 0800 O2 Saturation 98 % (92-99) Arterial Blood pH 7.47 (7.35-7.45) Arterial Blood pH (Temp corrected) 7.46 Arterial Blood pCO2 at Patient Temp 36 mmHg (35-46) Arterial Blood pCO2 (Temp correct) 38 mmHg Arterial Blood pO2 at Patient Temp 120 mmHg (75-108) Arterial Blood pO2 (Temp corrected) 125 mmHg Arterial Blood HCO3 26 mmol/L (21-28) Arterial Blood Base Excess 3 mmol/L (-3-3) FiO2 60 Sodium Level 137 mmol/L (136-145) Potassium Level 4.3 mmol/L (3.5-5.1) Chloride Level 96 mmol/L (98-107) Carbon Dioxide Level 34 mmol/L (21-32) Anion Gap 7 (6-14) Blood Urea Nitrogen 14 mg/dL (8-26) Creatinine 1.0 mg/dL (0.7-1.3) Estimated GFR (Cockcroft-Gault) 79.1 BUN/Creatinine Ratio 14 (6-20) Glucose Level 107 mg/dL (70-99) Calcium Level 8.0 mg/dL (8.5-10.1) Phosphorus Level 6.8 mg/dL (2.6-4.7) Magnesium Level 2.1 mg/dL (1.8-2.4) Total Bilirubin 0.3 mg/dL (0.2-1.0) Aspartate Amino Transf (AST/SGOT) 26 U/L (15-37) Alanine Aminotransferase (ALT/SGPT) 24 U/L (16-63) Alkaline Phosphatase 63 U/L (46-116) Total Protein 5.7 g/dL (6.4-8.2) Albumin 2.8 g/dL (3.4-5.0) Albumin/Globulin Ratio 1.0 (1.0-1.7) Nasal Screen MRSA (PCR) Negative (Negative) Test 12/11/18 19:29 12/11/18 21:05 12/11/18 21:17 12/12/18 00:10 Glucose (Fingerstick) 80 mg/dL (70-99) 94 mg/dL (70-99) Sodium Level 138 mmol/L (136-145) 137 mmol/L (136-145) Potassium Level 3.3 mmol/L (3.5-5.1) 3.2 mmol/L (3.5-5.1) Chloride Level 97 mmol/L (98-107) 96 mmol/L (98-107) Carbon Dioxide Level 33 mmol/L (21-32) 35 mmol/L (21-32) Anion Gap 8 (6-14) 6 (6-14) Blood Urea Nitrogen 14 mg/dL (8-26) 16 mg/dL (8-26) Creatinine 1.2 mg/dL (0.7-1.3) 1.2 mg/dL (0.7-1.3) Estimated GFR (Cockcroft-Gault) 64.1 64.1 BUN/Creatinine Ratio 12 (6-20) 13 (6-20) Glucose Level 114 mg/dL (70-99) 104 mg/dL (70-99) Calcium Level 7.9 mg/dL (8.5-10.1) 7.6 mg/dL (8.5-10.1) Phosphorus Level 5.3 mg/dL (2.6-4.7) 4.5 mg/dL (2.6-4.7) Magnesium Level 2.0 mg/dL (1.8-2.4) 2.0 mg/dL (1.8-2.4) Total Bilirubin 0.4 mg/dL (0.2-1.0) 0.4 mg/dL (0.2-1.0) Aspartate Amino Transf (AST/SGOT) 27 U/L (15-37) 29 U/L (15-37) Alanine Aminotransferase (ALT/SGPT) 25 U/L (16-63) 23 U/L (16-63) Alkaline Phosphatase 61 U/L (46-116) 55 U/L (46-116) Total Protein 5.7 g/dL (6.4-8.2) 5.5 g/dL (6.4-8.2) Albumin 2.9 g/dL (3.4-5.0) 2.5 g/dL (3.4-5.0) Albumin/Globulin Ratio 1.0 (1.0-1.7) 0.8 (1.0-1.7) Salicylates Level 34.8 mg/dL (2.8-20.0) 33.1 mg/dL (2.8-20.0) Salicylate Last Dose Date 12/11/18 Salicylate Last Dose Time 0800 Test 12/12/18 02:55 12/12/18 05:45 12/12/18 08:00 12/12/18 09:00 Sodium Level 137 mmol/L (136-145) 136 mmol/L (136-145) 137 mmol/L (136-145) Potassium Level 3.2 mmol/L (3.5-5.1) 2.9 mmol/L (3.5-5.1) 2.7 mmol/L (3.5-5.1) Chloride Level 96 mmol/L (98-107) 96 mmol/L (98-107) 95 mmol/L (98-107) Carbon Dioxide Level 35 mmol/L (21-32) 35 mmol/L (21-32) 37 mmol/L (21-32) Anion Gap 6 (6-14) 5 (6-14) 5 (6-14) Blood Urea Nitrogen 15 mg/dL (8-26) 16 mg/dL (8-26) 16 mg/dL (8-26) Creatinine 1.2 mg/dL (0.7-1.3) 1.1 mg/dL (0.7-1.3) 1.0 mg/dL (0.7-1.3) Estimated GFR (Cockcroft-Gault) 64.1 70.9 79.1 BUN/Creatinine Ratio 13 (6-20) 15 (6-20) 16 (6-20) Glucose Level 108 mg/dL (70-99) 113 mg/dL (70-99) 112 mg/dL (70-99) Calcium Level 7.5 mg/dL (8.5-10.1) 7.5 mg/dL (8.5-10.1) 7.5 mg/dL (8.5-10.1) Phosphorus Level 4.1 mg/dL (2.6-4.7) 3.1 mg/dL (2.6-4.7) 2.7 mg/dL (2.6-4.7) Magnesium Level 1.9 mg/dL (1.8-2.4) 2.1 mg/dL (1.8-2.4) 2.1 mg/dL (1.8-2.4) Total Bilirubin 0.4 mg/dL (0.2-1.0) 0.4 mg/dL (0.2-1.0) 0.4 mg/dL (0.2-1.0) Aspartate Amino Transf (AST/SGOT) 36 U/L (15-37) 39 U/L (15-37) 42 U/L (15-37) Alanine Aminotransferase (ALT/SGPT) 23 U/L (16-63) 23 U/L (16-63) 23 U/L (16-63) Alkaline Phosphatase 57 U/L (46-116) 54 U/L (46-116) 52 U/L (46-116) Total Protein 5.3 g/dL (6.4-8.2) 5.2 g/dL (6.4-8.2) 5.2 g/dL (6.4-8.2) Albumin 2.6 g/dL (3.4-5.0) 2.4 g/dL (3.4-5.0) 2.4 g/dL (3.4-5.0) Albumin/Globulin Ratio 1.0 (1.0-1.7) 0.9 (1.0-1.7) 0.9 (1.0-1.7) Salicylates Level 29.8 mg/dL (2.8-20.0) 25.6 mg/dL (2.8-20.0) 21.9 mg/dL (2.8-20.0) Salicylate Last Dose Date 12/11/18 12/11/18 Salicylate Last Dose Time 0800 0800 O2 Saturation 97 % (92-99) Arterial Blood pH 7.58 (7.35-7.45) Arterial Blood pCO2 at Patient Temp 38 mmHg (35-46) Arterial Blood pO2 at Patient Temp 87 mmHg (75-108) Arterial Blood HCO3 34 mmol/L (21-28) Arterial Blood Base Excess 12 mmol/L (-3-3) FiO2 40 White Blood Count 16.3 x10^3/uL (4.0-11.0) Red Blood Count 4.72 x10^6/uL (4.30-5.70) Hemoglobin 13.5 g/dL (13.0-17.5) Hematocrit 40.3 % (39.0-53.0) Mean Corpuscular Volume 86 fL (79-100) Mean Corpuscular Hemoglobin 29 pg (25-35) Mean Corpuscular Hemoglobin Concent 33 g/dL (31-37) Red Cell Distribution Width 12.6 % (11.5-14.5) Platelet Count 267 x10^3/uL (140-400) Neutrophils (%) (Auto) 75 % (31-73) Lymphocytes (%) (Auto) 13 % (24-48) Monocytes (%) (Auto) 10 % (0-9) Eosinophils (%) (Auto) 2 % (0-3) Basophils (%) (Auto) 1 % (0-3) Neutrophils # (Auto) 12.2 x10^3uL (1.8-7.7) Lymphocytes # (Auto) 2.1 x10^3/uL (1.0-4.8) Monocytes # (Auto) 1.6 x10^3/uL (0.0-1.1) Eosinophils # (Auto) 0.2 x10^3/uL (0.0-0.7) Basophils # (Auto) 0.1 x10^3/uL (0.0-0.2) Test 12/12/18 17:55 12/13/18 01:55 12/13/18 06:00 Sodium Level 137 mmol/L (136-145) 136 mmol/L (136-145) Potassium Level 3.1 mmol/L (3.5-5.1) 3.0 mmol/L (3.5-5.1) Chloride Level 97 mmol/L (98-107) 98 mmol/L (98-107) Carbon Dioxide Level 33 mmol/L (21-32) 32 mmol/L (21-32) Anion Gap 7 (6-14) 6 (6-14) Blood Urea Nitrogen 15 mg/dL (8-26) 14 mg/dL (8-26) Creatinine 1.0 mg/dL (0.7-1.3) 0.8 mg/dL (0.7-1.3) Estimated GFR (Cockcroft-Gault) 79.1 102.3 BUN/Creatinine Ratio 15 (6-20) 18 (6-20) Glucose Level 93 mg/dL (70-99) 98 mg/dL (70-99) Calcium Level 7.9 mg/dL (8.5-10.1) 8.2 mg/dL (8.5-10.1) Phosphorus Level 2.7 mg/dL (2.6-4.7) 2.0 mg/dL (2.6-4.7) Magnesium Level 1.9 mg/dL (1.8-2.4) 2.1 mg/dL (1.8-2.4) Total Bilirubin 0.7 mg/dL (0.2-1.0) 0.7 mg/dL (0.2-1.0) Aspartate Amino Transf (AST/SGOT) 62 U/L (15-37) 80 U/L (15-37) Alanine Aminotransferase (ALT/SGPT) 26 U/L (16-63) 31 U/L (16-63) Alkaline Phosphatase 53 U/L (46-116) 51 U/L (46-116) Total Protein 4.8 g/dL (6.4-8.2) 5.3 g/dL (6.4-8.2) Albumin 2.3 g/dL (3.4-5.0) 2.2 g/dL (3.4-5.0) Albumin/Globulin Ratio 0.9 (1.0-1.7) 0.7 (1.0-1.7) Salicylates Level 11.1 mg/dL (2.8-20.0) 6.2 mg/dL (2.8-20.0) 3.7 mg/dL (2.8-20.0) Salicylate Last Dose Date Unk 12/11/18 12/11/18 Salicylate Last Dose Time Unk 0800 0800 White Blood Count 14.2 x10^3/uL (4.0-11.0) Red Blood Count 4.33 x10^6/uL (4.30-5.70) Hemoglobin 12.6 g/dL (13.0-17.5) Hematocrit 37.5 % (39.0-53.0) Mean Corpuscular Volume 87 fL (79-100) Mean Corpuscular Hemoglobin 29 pg (25-35) Mean Corpuscular Hemoglobin Concent 34 g/dL (31-37) Red Cell Distribution Width 12.6 % (11.5-14.5) Platelet Count 207 x10^3/uL (140-400) Neutrophils (%) (Auto) 80 % (31-73) Lymphocytes (%) (Auto) 10 % (24-48) Monocytes (%) (Auto) 8 % (0-9) Eosinophils (%) (Auto) 2 % (0-3) Basophils (%) (Auto) 0 % (0-3) Neutrophils # (Auto) 11.4 x10^3uL (1.8-7.7) Lymphocytes # (Auto) 1.5 x10^3/uL (1.0-4.8) Monocytes # (Auto) 1.1 x10^3/uL (0.0-1.1) Eosinophils # (Auto) 0.2 x10^3/uL (0.0-0.7) Basophils # (Auto) 0.0 x10^3/uL (0.0-0.2) Laboratory Tests Test 12/12/18 17:55 12/13/18 01:55 12/13/18 06:00 Sodium Level 137 mmol/L (136-145) 136 mmol/L (136-145) Potassium Level 3.1 mmol/L (3.5-5.1) 3.0 mmol/L (3.5-5.1) Chloride Level 97 mmol/L (98-107) 98 mmol/L (98-107) Carbon Dioxide Level 33 mmol/L (21-32) 32 mmol/L (21-32) Anion Gap 7 (6-14) 6 (6-14) Blood Urea Nitrogen 15 mg/dL (8-26) 14 mg/dL (8-26) Creatinine 1.0 mg/dL (0.7-1.3) 0.8 mg/dL (0.7-1.3) Estimated GFR (Cockcroft-Gault) 79.1 102.3 BUN/Creatinine Ratio 15 (6-20) 18 (6-20) Glucose Level 93 mg/dL (70-99) 98 mg/dL (70-99) Calcium Level 7.9 mg/dL (8.5-10.1) 8.2 mg/dL (8.5-10.1) Phosphorus Level 2.7 mg/dL (2.6-4.7) 2.0 mg/dL (2.6-4.7) Magnesium Level 1.9 mg/dL (1.8-2.4) 2.1 mg/dL (1.8-2.4) Total Bilirubin 0.7 mg/dL (0.2-1.0) 0.7 mg/dL (0.2-1.0) Aspartate Amino Transf (AST/SGOT) 62 U/L (15-37) 80 U/L (15-37) Alanine Aminotransferase (ALT/SGPT) 26 U/L (16-63) 31 U/L (16-63) Alkaline Phosphatase 53 U/L (46-116) 51 U/L (46-116) Total Protein 4.8 g/dL (6.4-8.2) 5.3 g/dL (6.4-8.2) Albumin 2.3 g/dL (3.4-5.0) 2.2 g/dL (3.4-5.0) Albumin/Globulin Ratio 0.9 (1.0-1.7) 0.7 (1.0-1.7) Salicylates Level 11.1 mg/dL (2.8-20.0) 6.2 mg/dL (2.8-20.0) 3.7 mg/dL (2.8-20.0) Salicylate Last Dose Date Unk 12/11/18 12/11/18 Salicylate Last Dose Time Unk 0800 0800 White Blood Count 14.2 x10^3/uL (4.0-11.0) Red Blood Count 4.33 x10^6/uL (4.30-5.70) Hemoglobin 12.6 g/dL (13.0-17.5) Hematocrit 37.5 % (39.0-53.0) Mean Corpuscular Volume 87 fL (79-100) Mean Corpuscular Hemoglobin 29 pg (25-35) Mean Corpuscular Hemoglobin Concent 34 g/dL (31-37) Red Cell Distribution Width 12.6 % (11.5-14.5) Platelet Count 207 x10^3/uL (140-400) Neutrophils (%) (Auto) 80 % (31-73) Lymphocytes (%) (Auto) 10 % (24-48) Monocytes (%) (Auto) 8 % (0-9) Eosinophils (%) (Auto) 2 % (0-3) Basophils (%) (Auto) 0 % (0-3) Neutrophils # (Auto) 11.4 x10^3uL (1.8-7.7) Lymphocytes # (Auto) 1.5 x10^3/uL (1.0-4.8) Monocytes # (Auto) 1.1 x10^3/uL (0.0-1.1) Eosinophils # (Auto) 0.2 x10^3/uL (0.0-0.7) Basophils # (Auto) 0.0 x10^3/uL (0.0-0.2) Medications Current Medications Ondansetron HCl (Zofran) 4 mg STK-MED ONCE .ROUTE ; Start 12/11/18 at 10:09; Stop 12/11/18 at 10:10; Status DC Ondansetron HCl (Zofran) 4 mg 1X ONCE IV Last administered on 12/11/18at 10:11 ; Start 12/11/18 at 10:15; Stop 12/11/18 at 10:16; Status DC Sodium Chloride 1,000 ml @ 1,000 mls/hr 1X ONCE IV Last administered on at 10:12; Start 12/11/18 at 10:15; Stop 12/11/18 at 11:14; Status DC Propofol 50 ml @ As Directed STK-MED ONCE IV ; Start 12/11/18 at 10:16; Stop at 10:17; Status DC Propofol 100 ml @ 0 mls/hr CONT PRN IV SEE PROTOCOL Last administered on at 10:35; Start 12/11/18 at 10:30 Fentanyl Citrate (Fentanyl 2ml Vial) 25 mcg PRN Q1HR PRN IV SEE COMMENTS; Start 12/11/18 at 10:30 Fentanyl Citrate (Fentanyl 2ml Vial) 50 mcg PRN Q1HR PRN IV SEE COMMENTS Last administered on 12/11/18at 16:04; Start 12/11/18 at 10:30 Chlorhexidine Gluconate (Peridex) 15 ml BID MM Last administered on 12/12/18at 09:00; Start 12/11/18 at 21:00; Stop 12/12/18 at 20:56; Status DC Sodium Bicarbonate (Sodium Bicarb Adult 8.4% Syr) 150 meq 1X ONCE IV Last administered on 12/11/18at 11:27; Start 12/11/18 at 11:00; Stop 12/11/18 at 11:06 ; Status DC Sodium Bicarbonate 100 meq/Dextrose 1,100 ml @ 200 mls/hr Q5H30M IV Last administered on 12/12/18at 09:57; Start 12/11/18 at 11:15; Stop 12/12/18 at 11:34 ; Status DC Tetanus/ Diphtheria Toxoids (Tenivac Syringe) 0.5 ml ONCE ONCE VAX IM Last administered on 12/11/18at 11:41; Start 12/11/18 at 11:15; Stop 12/11/18 at 11:16 ; Status DC Propofol 50 ml @ As Directed STK-MED ONCE IV ; Start 12/11/18 at 11:38; Stop at 11:39; Status DC Etomidate (Amidate) 20 mg STK-MED ONCE IV ; Start 12/11/18 at 11:48; Stop at 11:49; Status DC Succinylcholine Chloride (Anectine) 200 mg STK-MED ONCE .ROUTE ; Start 12/11/18 at 11:49; Stop 12/11/18 at 11:50; Status DC Midazolam HCl 100 ml @ 5 mls/hr CONT PRN IV SEE I/O RECORD Last administered on 12/12/18at 09:38; Start 12/11/18 at 14:00 Midazolam HCl 100 ml @ 5 mls/hr CONT PRN IV SEE I/O RECORD; Start 12/11/18 at 13:45; Status UNV Sodium Chloride 1,000 ml @ 999 mls/hr 1X ONCE IV Last administered on at 14:19; Start 12/11/18 at 14:00; Stop 12/11/18 at 15:00; Status DC Norepinephrine Bitartrate 250 ml @ 1.875 mls/ hr CONT PRN IV SEE I/O RECORD Last administered on 12/12/18at 04:04; Start 12/11/18 at 14:45 Fentanyl Citrate 30 ml @ 0 mls/hr CONT PRN PRN IV PER PROTOCOL Last administered on 12/12/18at 10:24; Start 12/11/18 at 18:15 Potassium Chloride/Water 100 ml @ 100 mls/hr Q1H IV Last administered on at 01:04; Start 12/11/18 at 22:00; Stop 12/12/18 at 01:59; Status DC Potassium Chloride/Water 100 ml @ 100 mls/hr Q1H IV Last administered on at 05:05; Start 12/12/18 at 02:00; Stop 12/12/18 at 05:59; Status DC Potassium Chloride/Water 100 ml @ 100 mls/hr Q1H IV Last administered on at 14:45; Start 12/12/18 at 07:00; Stop 12/12/18 at 14:59; Status DC Sodium Chloride 1,000 ml @ 100 mls/hr Q10H IV Last administered on 12/12/18at 23:49; Start 12/12/18 at 12:00 Amino Acids/ Glycerin/ Electrolytes 1,000 ml @ 80 mls/hr [id number] IV Last administered on 12/12/18at 23:50; Start 12/12/18 at 12:00 Piperacillin Sod/ Tazobactam Sod (Zosyn Per Pharmacy) 1 each PRN DAILY PRN MC SEE COMMENTS; Start 12/12/18 at 14:15 Piperacillin Sod/ Tazobactam Sod 3.375 gm/Sodium Chloride 50 ml @ 100 mls/hr Q6HRS IV Last administered on 12/13/18at 05:30; Start 12/12/18 at 15:00 Acetaminophen (Tylenol) 650 mg PRN Q6HRS PRN PO FEVER > 100.5'F Last administered on 12/12/18at 15:38; Start 12/12/18 at 15:45 Sodium Chloride 1,000 ml @ 120 mls/hr 1X ONCE IV Last administered on at 19:20; Start 12/12/18 at 19:00; Stop 12/13/18 at 03:19; Status DC Nicotine (Nicoderm Cq 21mg) 1 patch DAILY TD Last administered on 12/12/18at 23: 50; Start 12/12/18 at 23:45 Hydralazine HCl (Apresoline Inj) 10 mg PRN Q4HRS PRN IVP ELEVATED BP, SEE COMMENTS Last administered on 12/13/18at 08:30; Start 12/13/18 at 08:30 Potassium Chloride (Klor-Con) 40 meq Q2H PO Last administered on 12/13/18at 09: 58; Start 12/13/18 at 09:00; Stop 12/13/18 at 13:01 Lorazepam (Ativan) 1 mg PRN Q6HRS PRN IV ANXIETY / AGITATION Last administered on 12/13/18at 09:57; Start 12/13/18 at 09:45 Active Scripts Active Keflex (Cephalexin) 500 Mg Capsule 1 Cap PO QID 7 Days Reported Aspirin 325 Mg Tablet 1 Tab PO DAILY Benadryl (Diphenhydramine Hcl) 25 Mg Capsule 1 Cap PO QHS Metoprolol Succinate ( Xl ) (Metoprolol Succinate) 25 Mg Tab.er.24h 1 Tab PO DAILY Vitals/I & O Vital Sign - Last 24 Hours 12/12/18 12/12/18 12/12/18 12/12/18 10:45 10:54 11:00 11:15 Temp 99.0 99.0 Pulse 78 80 Resp 20 B/P (MAP) 119/69 (86) 112/67 (82) 117/73 (88) Pulse Ox 100 100 100 O2 Delivery Ventilator Ventilator Ventilator Ventilator 3/12/12/18 12/12/18 12/12/18 11:30 11:45 12:00 12:00 Temp 101.4 101.4 Pulse 78 82 84 B/P (MAP) 171/84 (113) 117/69 (85) 122/71 (88) Pulse Ox 100 100 100 O2 Delivery Ventilator Ventilator Mechanical Ventilator Ventilator 12/12/18 12/12/18 12/12/18 12/12/18 12:15 12:17 12:30 12:36 Temp 101.4 101.4 Pulse 84 84 B/P (MAP) 118/74 (89) 99/54 (69) 122/71 (88) Pulse Ox 100 100 100 100 O2 Delivery Ventilator Ventilator Ventilator 12/12/18 12/12/18 12/12/18 12/12/18 12:45 13:00 13:15 13:30 Pulse 88 86 86 86 B/P (MAP) 95/53 (67) 101/67 (78) 112/67 (82) 117/66 (83) Pulse Ox 100 100 100 100 O2 Delivery Ventilator Ventilator Ventilator Ventilator 12/12/18 12/12/18 12/12/18 12/12/18 13:38 13:45 14:00 14:15 Pulse 86 88 86 B/P (MAP) 117/70 (86) 121/63 (82) 97/63 (74) Pulse Ox 100 100 100 100 O2 Delivery Ventilator Ventilator Ventilator 12/12/18 12/12/18 12/12/18 12/12/18 14:30 14:45 15:00 15:15 Pulse 84 84 88 90 B/P (MAP) 112/66 (81) 106/61 (76) 116/77 (90) 108/67 (81) Pulse Ox 100 100 100 99 O2 Delivery Ventilator Ventilator Ventilator Ventilator 12/12/18 12/12/18 12/12/18 12/12/18 15:30 15:45 16:00 16:00 Pulse 90 90 94 B/P (MAP) 113/76 (88) 126/74 (91) 103/72 (82) Pulse Ox 100 100 100 O2 Delivery Ventilator Ventilator Ventilator Mechanical Ventilator 12/12/18 12/12/18 12/12/18 12/12/18 16:15 16:30 16:45 17:00 Pulse 92 92 99 90 B/P (MAP) 105/72 (83) 129/74 (92) 133/70 (91) 115/73 (87) Pulse Ox 100 99 99 97 O2 Delivery Ventilator Ventilator Ventilator Nasal Cannula O2 Flow Rate 10.0 12/12/18 12/12/18 12/12/18 12/12/18 18:00 19:23 20:02 20:07 Temp 99.1 99.1 Pulse 88 83 83 Resp 20 18 B/P (MAP) 95/59 (71) 115/68 (84) 118/66 (83) Pulse Ox 99 99 100 O2 Delivery Nasal Cannula Nasal Cannula Nasal Cannula Mechanical Ventilator O2 Flow Rate 10.0 2.0 2.0 2.0 12/12/18 12/12/18 12/12/18 12/12/18 21:02 22:02 23:20 23:59 Temp 99.0 99.0 Pulse 81 81 79 Resp 18 18 18 B/P (MAP) 116/74 (88) 132/78 (96) 137/78 (97) Pulse Ox 100 99 99 O2 Delivery Nasal Cannula Nasal Cannula Nasal Cannula Nasal Cannula O2 Flow Rate 2.0 2.0 2.0 2.0 12/13/18 12/13/18 12/13/18 12/13/18 00:20 01:03 02:02 03:01 Temp 97.7 97.7 Pulse 80 83 84 84 Resp 17 18 20 18 B/P (MAP) 133/76 (95) 149/85 (106) 146/81 (102) 121/82 (95) Pulse Ox 100 100 98 96 O2 Delivery Nasal Cannula Nasal Cannula Nasal Cannula Nasal Cannula O2 Flow Rate 2.0 2.0 2.0 2.0 12/13/18 12/13/18 12/13/18 12/13/18 04:04 04:08 05:06 06:13 Pulse 84 92 96 Resp 20 18 20 B/P (MAP) 141/84 (103) 137/86 (103) 154/84 (107) Pulse Ox 99 95 97 O2 Delivery Nasal Cannula Nasal Cannula Room Air Room Air O2 Flow Rate 2.0 2.0 12/13/18 12/13/18 12/13/18 12/13/18 07:00 08:00 08:00 08:30 Temp 98.4 98.4 Pulse 99 99 94 Resp 20 18 B/P (MAP) 199/108 (138) 191/110 (137) 191/110 Pulse Ox 97 98 O2 Delivery Room Air Room Air Room Air 12/13/18 12/13/18 09:00 10:00 Pulse 103 95 Resp 18 22 B/P (MAP) 191/93 (125) 198/105 (136) Pulse Ox 96 98 O2 Delivery Room Air Room Air Intake and Output 12/12/18 12/12/18 12/13/18 15:00 23:00 07:00 Intake Total 2118 ml 970 ml 0 ml Output Total 1175 ml 650 ml 1080 ml Balance 943 ml 320 ml -1080 ml DAYLIN PAULINO MD Dec 13, 2018 10:41
[2018-12-13] MEDS ORDERED: METOPROLOL SUCC 24HR ER 25 MG TAB.ER.24H. PO SCH (11:00)
--- NOTE | 2018-12-13 12:00 | NUR ---
Spoke with Dr Wang and orders rec'd for add'l BP med. Pt up to chair earlier. On room air. Somewhat impulsive. Pat team here. DR Kaur here. aye dc/d w/o diff.Ativan given earlier with fair results
[2018-12-13] MEDS: AMINO AC 3%/ELECTROLYTE/GLYCER 1,000 ML IV SCH (13:00)
[2018-12-13] MEDS ORDERED: hydrALAZINE 20 MG/ML VIAL. IVP ONE (13:00)
[2018-12-13] MEDS ORDERED: METOPROLOL SUCC 24HR ER 25 MG TAB.ER.24H. PO ONE (13:00)
--- NOTE | 2018-12-13 13:44 | PDOC ---
Renal-Progress Notes Subjective Notes Notes FEELING WELL History of Present Illness Hx of present illness EXTUBATED, BETTER Vitals Vitals Vital Signs Date Time Temp Pulse Resp B/P (MAP) Pulse Ox O2 Delivery O2 Flow Rate FiO2 12/13/18 13:13 107 12/13/18 13:00 22 201/100 (133) Room Air 12/13/18 12:00 98 12/13/18 11:00 98.6 98.6 12/13/18 04:08 2.0 Weight Weight [ ] I.O. Intake and Output Intake and Output 12/13/18 07:00 Intake Total 3088 ml Output Total 2905 ml Balance 183 ml Intake Oral 0 ml IV Total 3088 ml Output Urine Total 2905 ml Labs Labs Laboratory Tests Test 12/12/18 17:55 12/13/18 01:55 12/13/18 06:00 Sodium Level 137 mmol/L (136-145) 136 mmol/L (136-145) Potassium Level 3.1 mmol/L (3.5-5.1) 3.0 mmol/L (3.5-5.1) Chloride Level 97 mmol/L (98-107) 98 mmol/L (98-107) Carbon Dioxide Level 33 mmol/L (21-32) 32 mmol/L (21-32) Anion Gap 7 (6-14) 6 (6-14) Blood Urea Nitrogen 15 mg/dL (8-26) 14 mg/dL (8-26) Creatinine 1.0 mg/dL (0.7-1.3) 0.8 mg/dL (0.7-1.3) Estimated GFR (Cockcroft-Gault) 79.1 102.3 BUN/Creatinine Ratio 15 (6-20) 18 (6-20) Glucose Level 93 mg/dL (70-99) 98 mg/dL (70-99) Calcium Level 7.9 mg/dL (8.5-10.1) 8.2 mg/dL (8.5-10.1) Phosphorus Level 2.7 mg/dL (2.6-4.7) 2.0 mg/dL (2.6-4.7) Magnesium Level 1.9 mg/dL (1.8-2.4) 2.1 mg/dL (1.8-2.4) Total Bilirubin 0.7 mg/dL (0.2-1.0) 0.7 mg/dL (0.2-1.0) Aspartate Amino Transf (AST/SGOT) 62 U/L (15-37) 80 U/L (15-37) Alanine Aminotransferase (ALT/SGPT) 26 U/L (16-63) 31 U/L (16-63) Alkaline Phosphatase 53 U/L (46-116) 51 U/L (46-116) Total Protein 4.8 g/dL (6.4-8.2) 5.3 g/dL (6.4-8.2) Albumin 2.3 g/dL (3.4-5.0) 2.2 g/dL (3.4-5.0) Albumin/Globulin Ratio 0.9 (1.0-1.7) 0.7 (1.0-1.7) Salicylates Level 11.1 mg/dL (2.8-20.0) 6.2 mg/dL (2.8-20.0) 3.7 mg/dL (2.8-20.0) Salicylate Last Dose Date Unk 12/11/18 12/11/18 Salicylate Last Dose Time Unk 0800 0800 White Blood Count 14.2 x10^3/uL (4.0-11.0) Red Blood Count 4.33 x10^6/uL (4.30-5.70) Hemoglobin 12.6 g/dL (13.0-17.5) Hematocrit 37.5 % (39.0-53.0) Mean Corpuscular Volume 87 fL (79-100) Mean Corpuscular Hemoglobin 29 pg (25-35) Mean Corpuscular Hemoglobin Concent 34 g/dL (31-37) Red Cell Distribution Width 12.6 % (11.5-14.5) Platelet Count 207 x10^3/uL (140-400) Neutrophils (%) (Auto) 80 % (31-73) Lymphocytes (%) (Auto) 10 % (24-48) Monocytes (%) (Auto) 8 % (0-9) Eosinophils (%) (Auto) 2 % (0-3) Basophils (%) (Auto) 0 % (0-3) Neutrophils # (Auto) 11.4 x10^3uL (1.8-7.7) Lymphocytes # (Auto) 1.5 x10^3/uL (1.0-4.8) Monocytes # (Auto) 1.1 x10^3/uL (0.0-1.1) Eosinophils # (Auto) 0.2 x10^3/uL (0.0-0.7) Basophils # (Auto) 0.0 x10^3/uL (0.0-0.2) Free Thyroxine 1.09 ng/dL (0.76-1.46) Review of Systems Constitutional: yes: weakness, alert, oriented Ears/Nose/Throat: Yes: no symptom reported Eyes: Yes: no symptom reported Pulmonary: Yes no symptom reported Cardiovascular: Yes no symptom reported Gastrointestional: Yes: no symptom reported Genitourinary: Yes: no symptom reported Musculoskeletal: Yes: no symptom reported Skin: Yes no symptom reported Psychiatric/Neurological: Yes: depressed Endocrine: Yes: no symptom reported Hematologic/Lymphatic: Yes: no symptom reported Physical Exam General Appearance: no apparent distress Skin: warm Respiratory: decreased breath sounds Heart: S1S2 Abdomen: soft, other (HYPOACTIVE) Extremities: pulses present, no edema, atrophy Neurology: non-verbal, other (SEDATED) Assessment Assessment MP SUICIDE ATTEMPT SALICYLATE POISONING-NEARLY RESOLVED. 6.0 TODAY ACUTE RESP FAILURE-EXTUBATED MET ENCEPHALOPATHY-RESOLVED ALKALEMIA-RESOLVED HYPOKALEMIA PROBABLE ILEUS-RESOLVED PLAN ENC PO PSYCH EVAL REPLACE K WILL SIGN OFF KETAN SANTAMARIA MD Dec 13, 2018 13:44
[2018-12-13] MEDS ORDERED: HALOPERIDOL LACTATE 5 MG/ML VIAL. IVP PRN (14:00)
--- NOTE | 2018-12-13 14:00 | NUR ---
Spoke with Dr byrne and Alcohol withdrawal treatment order set initiated as pt trying to get out of bed, flushed, some shaking and pt stated he was having some of those "same thoughts" again. Family at bedside. Ativan repeated.. Voided w/o diff.
--- NOTE | 2018-12-13 14:01 | NUR ---
SS following up with discharge planning. Williams contacted SS and reported that he is attempting to find pt a placement at [facility]. Williams requested that SS fax records to Mari at [facility], fax [phone]. SS faxed records to [facility]. SS awaiting acceptance decision and will proceed accordingly.
--- NOTE | 2018-12-13 14:12 | PDOC2 ---
MAGGIE RODGERS ANCHORER 12/13/18 1411: CARDIAC CONSULT DATE OF CONSULT Date of Consult DATE: 12/13/18 TIME: 14:03 REASON FOR CONSULT Reason for Consult: Severe Hypertension REFERRING PHYSICIAN Referring Physician: Dr. Wang SOURCE Source: Chart review, Patient HISTORY OF PRESENT ILLNESS HISTORY OF PRESENT ILLNESS This is a 48 yo male, with a history of hypertension and schizophrenia, who presented secondary to suicide attempt. Was found unresponsive in his vehicle near [facility] by law enforcement. BP noted to be elevated, which prompted this consult. Has a history of hypertension. Previously on Metoprolol for blood pressure but stopped taking awhile ago. Was seen in the ED at [facility] a couple of times recently for the same. Was placed back on metoprolol by ED provider. No prior history of CAD, CHF, or prior cardiac workup. Son at bedside requesting echo to be conducted. Troponin was check from this mornings blood and noted to be elevated. which would be expected in this setting. Has a history of tobaccoism. Recently quit and has been vaping in place. Reports that he must had overdosed on vaping and became delusional and paranoid. First attempted to commit suicide by taking ASA, metoprolol, and Benadryl at home. He then attempted to hang himself at home. Son came home and patient took of in his vehicle. Phone was pinged and law enforcement was able to located him in his truck near [facility]. Was unresponsive and had multiple self-induced lacerations to his wrists. Patient was brought in by EMS and intubated for airway protection. Blood pressure initially low and metoprolol was held. Blood pressure now significantly elevated, which prompted this consult. Very supportive son at bedside. Patient presently denies any delusions, paranoias, or suicidal ideations. PAST MEDICAL HISTORY Cardiovascular: HTN Pulmonary: No pertinent hx CENTRAL NERVOUS SYSTEM: Other (no pertinent ) Psych: Anxiety, Depression, Schizophrenia Musculoskeletal: Other (no pertinent history ) Rheumatologic: No pertinent hx Infectious disease: No pertinent hx ENT: No pertinent hx Renal/: No pertinent hx Endocrine: No pertinent hx Dermatology: No pertinent hx PAST SURGICAL HISTORY Past Surgical History: No pertinent history FAMILY HISTORY Family History: Coronary Artery Disease (father ) SOCIAL HISTORY ALCOHOL: social Drugs: None Lives: Alone CURRENT MEDICATIONS CURRENT MEDICATIONS Current Medications Medications (Trade) Dose Ordered Sig/Ross Route PRN Reason Start Time Stop Time Status Last Admin Dose Admin Piperacillin Sod/ Tazobactam Sod 3.375 gm/Sodium Chloride 50 ml @ 100 mls/hr Q6HRS IV 12/12/18 15:00 12/13/18 13:05 DC 12/13/18 05:30 Acetaminophen (Tylenol) 650 mg PRN Q6HRS PRN PO FEVER > 100.5'F 12/12/18 15:45 12/12/18 15:38 Sodium Chloride 1,000 ml @ 120 mls/hr 1X ONCE IV 12/12/18 19:00 12/13/18 03:19 DC 12/12/18 19:20 Nicotine (Nicoderm Cq 21mg) 1 patch DAILY TD 12/12/18 23:45 12/12/18 23:50 Hydralazine HCl (Apresoline Inj) 10 mg PRN Q4HRS PRN IVP ELEVATED BP, SEE COMMENTS 12/13/18 08:30 12/13/18 08:30 Potassium Chloride (Klor-Con) 40 meq Q2H PO 12/13/18 09:00 12/13/18 13:01 DC 12/13/18 13:14 Lorazepam (Ativan) 1 mg PRN Q6HRS PRN IV ANXIETY / AGITATION 12/13/18 09:45 12/13/18 13:08 Metoprolol Succinate (Toprol Xl) 25 mg DAILY PO 12/13/18 11:00 12/13/18 12:52 DC 12/13/18 11:14 Metoprolol Succinate (Toprol Xl) 25 mg 1X ONCE PO 12/13/18 13:00 12/13/18 13:01 DC 12/13/18 13:13 ALLERGIES ALLERGIES: Coded Allergies: No Known Drug Allergies (Unverified , 06/20/18) ROS Review of System 14 point ROS conducted with pertinent positives noted above in HPI. PHYSICAL EXAM General: Alert, Oriented X3, Cooperative, No acute distress HEENT: Atraumatic, Mucous membr. moist/pink, Other (scleral erythema) Lungs: Clear to auscultation Heart: Regular rate, Normal S1, Normal S2 Abdomen: Soft, No tenderness Extremities: No edema, Normal pulses Skin: No significant lesion, Other (bilateral forearm lacerations. Drsgs intact ) Neuro: Normal speech, Sensation intact Psych/Mental Status: Mental status NL, Mood NL MUSCULOSKELETAL: No deformity VITALS VITALS Vital Signs Date Time Temp Pulse Resp B/P (MAP) Pulse Ox O2 Delivery O2 Flow Rate FiO2 12/13/18 13:13 107 12/13/18 13:00 22 201/100 (133) Room Air 12/13/18 12:00 98 12/13/18 11:00 98.6 98.6 12/13/18 04:08 2.0 LABS Lab: Laboratory Tests Test 12/12/18 17:55 12/13/18 01:55 12/13/18 06:00 Sodium Level 137 mmol/L (136-145) 136 mmol/L (136-145) Potassium Level 3.1 mmol/L (3.5-5.1) 3.0 mmol/L (3.5-5.1) Chloride Level 97 mmol/L (98-107) 98 mmol/L (98-107) Carbon Dioxide Level 33 mmol/L (21-32) 32 mmol/L (21-32) Anion Gap 7 (6-14) 6 (6-14) Blood Urea Nitrogen 15 mg/dL (8-26) 14 mg/dL (8-26) Creatinine 1.0 mg/dL (0.7-1.3) 0.8 mg/dL (0.7-1.3) Estimated GFR (Cockcroft-Gault) 79.1 102.3 BUN/Creatinine Ratio 15 (6-20) 18 (6-20) Glucose Level 93 mg/dL (70-99) 98 mg/dL (70-99) Calcium Level 7.9 mg/dL (8.5-10.1) 8.2 mg/dL (8.5-10.1) Phosphorus Level 2.7 mg/dL (2.6-4.7) 2.0 mg/dL (2.6-4.7) Magnesium Level 1.9 mg/dL (1.8-2.4) 2.1 mg/dL (1.8-2.4) Total Bilirubin 0.7 mg/dL (0.2-1.0) 0.7 mg/dL (0.2-1.0) Aspartate Amino Transf (AST/SGOT) 62 U/L (15-37) 80 U/L (15-37) Alanine Aminotransferase (ALT/SGPT) 26 U/L (16-63) 31 U/L (16-63) Alkaline Phosphatase 53 U/L (46-116) 51 U/L (46-116) Total Protein 4.8 g/dL (6.4-8.2) 5.3 g/dL (6.4-8.2) Albumin 2.3 g/dL (3.4-5.0) 2.2 g/dL (3.4-5.0) Albumin/Globulin Ratio 0.9 (1.0-1.7) 0.7 (1.0-1.7) Salicylates Level 11.1 mg/dL (2.8-20.0) 6.2 mg/dL (2.8-20.0) 3.7 mg/dL (2.8-20.0) Salicylate Last Dose Date Unk 12/11/18 12/11/18 Salicylate Last Dose Time Unk 0800 0800 White Blood Count 14.2 x10^3/uL (4.0-11.0) Red Blood Count 4.33 x10^6/uL (4.30-5.70) Hemoglobin 12.6 g/dL (13.0-17.5) Hematocrit 37.5 % (39.0-53.0) Mean Corpuscular Volume 87 fL (79-100) Mean Corpuscular Hemoglobin 29 pg (25-35) Mean Corpuscular Hemoglobin Concent 34 g/dL (31-37) Red Cell Distribution Width 12.6 % (11.5-14.5) Platelet Count 207 x10^3/uL (140-400) Neutrophils (%) (Auto) 80 % (31-73) Lymphocytes (%) (Auto) 10 % (24-48) Monocytes (%) (Auto) 8 % (0-9) Eosinophils (%) (Auto) 2 % (0-3) Basophils (%) (Auto) 0 % (0-3) Neutrophils # (Auto) 11.4 x10^3uL (1.8-7.7) Lymphocytes # (Auto) 1.5 x10^3/uL (1.0-4.8) Monocytes # (Auto) 1.1 x10^3/uL (0.0-1.1) Eosinophils # (Auto) 0.2 x10^3/uL (0.0-0.7) Basophils # (Auto) 0.0 x10^3/uL (0.0-0.2) Free Thyroxine 1.09 ng/dL (0.76-1.46) ASSESSMENT/PLAN ASSESSMENT/PLAN 1. Suicide attempts 2. Salicylate intoxication; improved 3. Acute respiratory failure; extubated 4. Malignant hypertension with history of uncontrolled hypertension. remains elevated 5. NSTEMI; 0.155. Type II, demand ischemia which is multifactorial given above. 5. Metabolic encephalopathy; improved 6. Schizophrenia, anxiety, depression; as per PCP 7. Hypokalemia; replaced 8. Noncompliance Recommendations Continue BB Add lisinopril Hydralazine IV PRN Monitor lytes, replace as warranted Echo ordered Supportive care DOREEN ALEXANDRA MD 12/13/18 1803: CARDIAC CONSULT ASSESSMENT/PLAN ASSESSMENT/PLAN Pt. seen and examined. Agree with above FRONT OFFICE ATTENDANT note with following comments Stop b-mariely given depression and no clear indication -uptitrate lisinopril -add hydralazine prn -Consider goodrx card and amlodipine if needed. MAGGIE RODGERS APRN Dec 13, 2018 14:11 DOREEN ALEXANDRA MD Dec 13, 2018 18:03
[2018-12-13] MEDS: MULTIVIT INFUSN,ADULT 4,VIT K 10 ML, THIAMINE INJ 100 MG, FOLIC ACID INJ 1 MG in IV NOR... IV SCH (14:36)
[2018-12-13] MEDS: POTASSIUM & SODIUM PHOSPHATES PACKET. PO SCH (14:37)
[2018-12-13] MEDS: LORazepam 1 MG TABLET PO PRN (15:00)
--- NOTE | 2018-12-13 17:13 | CARD ---
MR#: [id number] Date of Study: 12/13/2018 Ordering Physician: DAYLIN PAULINO, Referring Physician: Homer MEDINA: Khushbu Truong DEMETRI APPROVED REPORT EXAM: Two-dimensional and M-mode echocardiogram with Doppler and color Doppler. Other Information Quality : Technically LimitedHR: 102bpm Rhythm : TachycardiaTechnically limited study due to body habitus and smoking. INDICATION Hypertension/HCVD 2D DIMENSIONS RVDd3.2 (2.9-3.5cm)Left Atrium(2D)3.1 (1.6-4.0cm) IVSd1.0 (0.7-1.1cm)Aortic Root(2D)3.2 (2.0-3.7cm) LVDd4.5 (3.9-5.9cm)LVOT Diameter2.3 (1.8-2.4cm) PWd0.9 (0.7-1.1cm)LVDs3.2 (2.5-4.0cm) FS (%) 28.6 %SV50.7 ml LVEF(%)55.3 (>50%) M-Mode DIMENSIONS Left Atrium(MM)3.38 (2.5-4.0cm)Aortic Root3.35 (2.2-3.7cm) Aortic Valve AoV Peak Bob.180.6cm/sAoV VTI22.6cm AO Peak GR.13.1mmHgLVOT Peak Bob.114.3cm/s AO Mean GR.6mmHgAVA (VMAX)2.60cm2 PABLO (VTI)2.60cm2 Mitral Valve MV E Bezloquc13.0cm/sMV E Peak Gr.9mmHg MV DECEL [id number] A Frluisek622.4cm/s MV E Mean Gr.4mmHgE/A Ratio0.7 MV A [id number] Pulmonary Valve PV Peak Qhdqcmxf97.8cm/s LEFT VENTRICLE The left ventricle is normal size. There is normal left ventricular wall thickness. The left ventricu lar systolic function is normal and the ejection fraction is within normal range. The Ejection Fracti on is 55-60%. There is normal LV segmental wall motion. Transmitral Doppler flow pattern is Grade I-a bnormal relaxation pattern. RIGHT VENTRICLE The right ventricle is normal size. There is normal right ventricular wall thickness. The right ventr icular systolic function is normal. ATRIA The left atrium size is normal. The right atrium size is normal. The interatrial septum is intact wit h no evidence for an atrial septal defect or patent foramen ovale as noted on 2-D or Doppler imaging. AORTIC VALVE The aortic valve is grossly trileaflet. Doppler and Color Flow revealed no significant aortic regurgi tation. There is no significant aortic valvular stenosis. MITRAL VALVE Mitral annular calcification is moderate in the posterior leaflet. There is no evidence of mitral leda ve prolapse. There is no mitral valve stenosis. Doppler and Color-flow revealed trace mitral regurgit ation. TRICUSPID VALVE The tricuspid valve is normal in structure and function. Doppler and Color Flow revealed no tricuspid valve regurgitation noted. There is no tricuspid valve prolapse or vegetation. There is no tricuspid valve stenosis. PULMONIC VALVE The pulmonic valve is not well visualized. GREAT VESSELS The aortic root is normal in size. The ascending aorta is normal in size. The IVC is normal in size a nd collapses >50% with inspiration. PERICARDIAL EFFUSION There is no evidence of significant pericardial effusion. Critical Notification Critical Value: No <Conclusion> The left ventricular systolic function is normal and the ejection fraction is within normal range. Th e Ejection Fraction is 55-60%. There is normal LV segmental wall motion. Signed by : Abisai Zuniga, Electronically Approved : 12/13/2018 17:12:08
--- NOTE | 2018-12-13 17:30 | NUR ---
Family here visiting and very supportive, Addition of CIWA treatment very helpful. Pt rested some. Still cooperative and sat at bed edge and ate dinner. Voiding good. BP control better. Dr Zuniga here, made some changes on BP meds. Will stay in ICU 1:1 another night.
[2018-12-13 19:37] LABS: CALCIUM 8.2 mg/dL (8.5-10.1); CREATININE 0.7 mg/dL (0.7-1.3); GFR 119.4; POTASSIUM 3.4 mmol/L (3.5-5.1)
[2018-12-13] MEDS: AMOXICILLIN/K CLAV 875/125MG TABLET. PO SCH (21:04)
[2018-12-14] VITALS (16 sets, daily range): BP systolic 119–173; BP diastolic 71–107
[2018-12-14 02:31] LABS: BARBITURATES NEG (NEG); BENZODIAZEPINES POS (NEG); CANNABINOIDS NEG (NEG); COCAINE NEG (NEG); METHADONE NEG (NEG); OPIATES NEG (NEG); PHENCYCLIDINE NEG (NEG)
[2018-12-14 02:34] LABS: AMPHETAMINE/METHAMPHETAMINE NEG (NEG)
[2018-12-14] MEDS: IV NORMAL SALINE 1000ML BAG 1,000 ML IV SCH ×3 (04:00→20:11)
[2018-12-14 05:56] LABS: BASO # 0.1 x10^3/uL (0.0-0.2); BASO % 1 % (0-3); EOS # 0.3 x10^3/uL (0.0-0.7); EOS % 3 % (0-3); HEMATOCRIT 34.4 % (39.0-53.0); HEMOGLOBIN 11.5 g/dL (13.0-17.5); LYMPH # 1.7 x10^3/uL (1.0-4.8); LYMPH % 16 % (24-48); MEAN CORPUSCULAR HEMOGLOBIN 29 pg (25-35); MEAN CORPUSCULAR HGB CONC 34 g/dL (31-37); MEAN CORPUSCULAR VOLUME 87 fL (79-100); MONO # 0.9 x10^3/uL (0.0-1.1); MONO % 9 % (0-9); NEUT # 7.4 x10^3uL (1.8-7.7); NEUT % 72 % (31-73); PLATELET COUNT 215 x10^3/uL (140-400); RED BLOOD COUNT 3.96 x10^6/uL (4.30-5.70); RED CELL DISTRIBUTION WIDTH 12.6 % (11.5-14.5); WHITE BLOOD COUNT 10.3 x10^3/uL (4.0-11.0)
[2018-12-14 06:04] LABS: ALBUMIN 2.3 g/dL (3.4-5.0); ALBUMIN/GLOBULIN RATIO 0.8 (1.0-1.7); CALCIUM 8.1 mg/dL (8.5-10.1); CREATININE 0.7 mg/dL (0.7-1.3); GFR 119.4; POTASSIUM 3.3 mmol/L (3.5-5.1); TOTAL BILIRUBIN 0.4 mg/dL (0.2-1.0); TOTAL PROTEIN 5.3 g/dL (6.4-8.2)
--- NOTE | 2018-12-14 07:51 | RAD ---
Portable chest, 12/14/2018: HISTORY: Respiratory failure Comparison is made to a study from 12/13/2018. The heart size is normal. No pulmonary infiltrate is seen. There is no evidence of pleural fluid. IMPRESSION: No acute cardiopulmonary abnormality is detected with no significant change since yesterday's study. Electronically signed by: Rey Zaragoza MD (12/14/2018 7:48 AM) [facility]
[2018-12-14] MEDS: POTASSIUM CHLORIDE 20 MEQ TABLET.ER. PO SCH (08:20)
[2018-12-14] MEDS: NICOTINE 21MG PATCH. TD SCH (08:21)
[2018-12-14] MEDS: MULTIVIT INFUSN,ADULT 4,VIT K 10 ML, THIAMINE INJ 100 MG, FOLIC ACID INJ 1 MG in IV NOR... IV SCH (08:22)
[2018-12-14] MEDS: AMOXICILLIN/K CLAV 875/125MG TABLET. PO SCH ×2 (08:22→20:11)
[2018-12-14] MEDS: POTASSIUM & SODIUM PHOSPHATES PACKET. PO SCH (08:59)
[2018-12-14] MEDS ORDERED: METOPROLOL SUCC 24HR ER 50 MG TAB.ER.24H. PO SCH (09:00)
[2018-12-14] MEDS ORDERED: LISINOPRIL 20 MG TABLET PO SCH (09:00)
[2018-12-14] MEDS ORDERED: LISINOPRIL 10 MG TABLET PO ONE ×2 (09:00→15:15)
[2018-12-14] MEDS ORDERED: LISINOPRIL 10 MG TABLET PO SCH (09:00)
--- NOTE | 2018-12-14 09:17 | PDOC ---
PROGRESS NOTES History of Present Illness History of Present Illness ASSESSMENT AND PLAN: Suicide attempt attempt at STRANGLING self with electric cord, failed to work , slitting his wrist aspirin overdose . HX ALCOHOL ABUSE, FAMILY STATES HE DRINKS A LOT DRINKS OFTEN malignant hypertension, severe EXTREME SOCIAL STRESSORS hypokalemia No acute fracture of the cervical spine.on ct NSTEMI demand ischemia hypokalemia very worried about finances, business , tax liability. no previous suicide attempts agrees to start Lexapro low dose admitted to the ICU // extubated Pulmonary following consult Nephrology // aspirin overdose. place at [facility] planned Frequent labs. DVT prophylaxis. Full code iv hydralazine 20 mg x 1 now d/w rn 12/13 inc toprol xl to 50mg po daily psychiatric evaluation needed Prognosis is guarded urine drug screen frequent labs cardiology consult replace k HIGH RISK OF SUICIDE IN NEAR FUTURE// MIDDLE AGE MALE// ETOH ABUSE Total time on this critically ill patient 34 minutes. Vitals Vitals Vital Signs Date Time Temp Pulse Resp B/P (MAP) Pulse Ox O2 Delivery O2 Flow Rate FiO2 12/14/18 09:06 93 158/97 12/14/18 09:00 98.5 18 96 Room Air 98.5 Physical Exam Physical Exam HEART: Tachy S1, S2. LUNGS: cta ABDOMEN: Soft and distended. EXTREMITIES: Trace edema. blood on the bottom of his feet, hands and under his nails. The wrist has been slit on the right and the left. ENDOCRINE: No thyromegaly. LYMPHATICS: No cervical nodes. HEMATOPOIETIC: mild bruising on his neck. 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 Drsgs intact ) Labs LABS Laboratory Tests Test 12/13/18 19:15 12/14/18 01:55 12/14/18 04:45 Sodium Level 138 mmol/L (136-145) 139 mmol/L (136-145) Potassium Level 3.4 mmol/L (3.5-5.1) 3.3 mmol/L (3.5-5.1) Chloride Level 103 mmol/L (98-107) 105 mmol/L (98-107) Carbon Dioxide Level 29 mmol/L (21-32) 26 mmol/L (21-32) Anion Gap 6 (6-14) 8 (6-14) Blood Urea Nitrogen 11 mg/dL (8-26) 6 mg/dL (8-26) Creatinine 0.7 mg/dL (0.7-1.3) 0.7 mg/dL (0.7-1.3) Estimated GFR (Cockcroft-Gault) 119.4 119.4 Glucose Level 143 mg/dL (70-99) 104 mg/dL (70-99) Calcium Level 8.2 mg/dL (8.5-10.1) 8.1 mg/dL (8.5-10.1) Urine Opiates Screen Neg (NEG) Urine Methadone Screen Neg (NEG) Urine Barbiturates Neg (NEG) Urine Phencyclidine Screen Neg (NEG) Urine Amphetamine/Methamphetamine Neg (NEG) Urine Benzodiazepines Screen Pos (NEG) Urine Cocaine Screen Neg (NEG) Urine Cannabinoids Screen Neg (NEG) Urine Ethyl Alcohol Neg (NEG) White Blood Count 10.3 x10^3/uL (4.0-11.0) Red Blood Count 3.96 x10^6/uL (4.30-5.70) Hemoglobin 11.5 g/dL (13.0-17.5) Hematocrit 34.4 % (39.0-53.0) Mean Corpuscular Volume 87 fL (79-100) Mean Corpuscular Hemoglobin 29 pg (25-35) Mean Corpuscular Hemoglobin Concent 34 g/dL (31-37) Red Cell Distribution Width 12.6 % (11.5-14.5) Platelet Count 215 x10^3/uL (140-400) Neutrophils (%) (Auto) 72 % (31-73) Lymphocytes (%) (Auto) 16 % (24-48) Monocytes (%) (Auto) 9 % (0-9) Eosinophils (%) (Auto) 3 % (0-3) Basophils (%) (Auto) 1 % (0-3) Neutrophils # (Auto) 7.4 x10^3uL (1.8-7.7) Lymphocytes # (Auto) 1.7 x10^3/uL (1.0-4.8) Monocytes # (Auto) 0.9 x10^3/uL (0.0-1.1) Eosinophils # (Auto) 0.3 x10^3/uL (0.0-0.7) Basophils # (Auto) 0.1 x10^3/uL (0.0-0.2) BUN/Creatinine Ratio 9 (6-20) Total Bilirubin 0.4 mg/dL (0.2-1.0) Aspartate Amino Transf (AST/SGOT) 74 U/L (15-37) Alanine Aminotransferase (ALT/SGPT) 35 U/L (16-63) Alkaline Phosphatase 51 U/L (46-116) Total Protein 5.3 g/dL (6.4-8.2) Albumin 2.3 g/dL (3.4-5.0) Albumin/Globulin Ratio 0.8 (1.0-1.7) Assessment and Plan Assessmemt and Plan Problems Medical Problems: (1) Laceration of left forearm Status: Acute (2) Laceration of left wrist Status: Acute (3) Laceration of right forearm Status: Acute (4) Salicylate overdose Status: Acute (5) Suicide attempt by beta mariely overdose Status: Acute (6) Suicide attempt by hanging Status: Acute Comment Review of Relevant I have reviewed the following items danis (where applicable) has been applied. Labs Laboratory Tests Test 12/12/18 17:55 12/13/18 01:55 12/13/18 06:00 12/13/18 19:15 Sodium Level 137 mmol/L (136-145) 136 mmol/L (136-145) 138 mmol/L (136-145) Potassium Level 3.1 mmol/L (3.5-5.1) 3.0 mmol/L (3.5-5.1) 3.4 mmol/L (3.5-5.1) Chloride Level 97 mmol/L (98-107) 98 mmol/L (98-107) 103 mmol/L (98-107) Carbon Dioxide Level 33 mmol/L (21-32) 32 mmol/L (21-32) 29 mmol/L (21-32) Anion Gap 7 (6-14) 6 (6-14) 6 (6-14) Blood Urea Nitrogen 15 mg/dL (8-26) 14 mg/dL (8-26) 11 mg/dL (8-26) Creatinine 1.0 mg/dL (0.7-1.3) 0.8 mg/dL (0.7-1.3) 0.7 mg/dL (0.7-1.3) Estimated GFR (Cockcroft-Gault) 79.1 102.3 119.4 BUN/Creatinine Ratio 15 (6-20) 18 (6-20) Glucose Level 93 mg/dL (70-99) 98 mg/dL (70-99) 143 mg/dL (70-99) Calcium Level 7.9 mg/dL (8.5-10.1) 8.2 mg/dL (8.5-10.1) 8.2 mg/dL (8.5-10.1) Phosphorus Level 2.7 mg/dL (2.6-4.7) 2.0 mg/dL (2.6-4.7) Magnesium Level 1.9 mg/dL (1.8-2.4) 2.1 mg/dL (1.8-2.4) Total Bilirubin 0.7 mg/dL (0.2-1.0) 0.7 mg/dL (0.2-1.0) Aspartate Amino Transf (AST/SGOT) 62 U/L (15-37) 80 U/L (15-37) Alanine Aminotransferase (ALT/SGPT) 26 U/L (16-63) 31 U/L (16-63) Alkaline Phosphatase 53 U/L (46-116) 51 U/L (46-116) Total Protein 4.8 g/dL (6.4-8.2) 5.3 g/dL (6.4-8.2) Albumin 2.3 g/dL (3.4-5.0) 2.2 g/dL (3.4-5.0) Albumin/Globulin Ratio 0.9 (1.0-1.7) 0.7 (1.0-1.7) Salicylates Level 11.1 mg/dL (2.8-20.0) 6.2 mg/dL (2.8-20.0) 3.7 mg/dL (2.8-20.0) Salicylate Last Dose Date Unk 12/11/18 12/11/18 Salicylate Last Dose Time Unk 0800 0800 White Blood Count 14.2 x10^3/uL (4.0-11.0) Red Blood Count 4.33 x10^6/uL (4.30-5.70) Hemoglobin 12.6 g/dL (13.0-17.5) Hematocrit 37.5 % (39.0-53.0) Mean Corpuscular Volume 87 fL (79-100) Mean Corpuscular Hemoglobin 29 pg (25-35) Mean Corpuscular Hemoglobin Concent 34 g/dL (31-37) Red Cell Distribution Width 12.6 % (11.5-14.5) Platelet Count 207 x10^3/uL (140-400) Neutrophils (%) (Auto) 80 % (31-73) Lymphocytes (%) (Auto) 10 % (24-48) Monocytes (%) (Auto) 8 % (0-9) Eosinophils (%) (Auto) 2 % (0-3) Basophils (%) (Auto) 0 % (0-3) Neutrophils # (Auto) 11.4 x10^3uL (1.8-7.7) Lymphocytes # (Auto) 1.5 x10^3/uL (1.0-4.8) Monocytes # (Auto) 1.1 x10^3/uL (0.0-1.1) Eosinophils # (Auto) 0.2 x10^3/uL (0.0-0.7) Basophils # (Auto) 0.0 x10^3/uL (0.0-0.2) Troponin I Quantitative 0.155 ng/mL (0.000-0.055) Free Thyroxine 1.09 ng/dL (0.76-1.46) Test 12/14/18 01:55 12/14/18 04:45 Urine Opiates Screen Neg (NEG) Urine Methadone Screen Neg (NEG) Urine Barbiturates Neg (NEG) Urine Phencyclidine Screen Neg (NEG) Urine Amphetamine/Methamphetamine Neg (NEG) Urine Benzodiazepines Screen Pos (NEG) Urine Cocaine Screen Neg (NEG) Urine Cannabinoids Screen Neg (NEG) Urine Ethyl Alcohol Neg (NEG) White Blood Count 10.3 x10^3/uL (4.0-11.0) Red Blood Count 3.96 x10^6/uL (4.30-5.70) Hemoglobin 11.5 g/dL (13.0-17.5) Hematocrit 34.4 % (39.0-53.0) Mean Corpuscular Volume 87 fL (79-100) Mean Corpuscular Hemoglobin 29 pg (25-35) Mean Corpuscular Hemoglobin Concent 34 g/dL (31-37) Red Cell Distribution Width 12.6 % (11.5-14.5) Platelet Count 215 x10^3/uL (140-400) Neutrophils (%) (Auto) 72 % (31-73) Lymphocytes (%) (Auto) 16 % (24-48) Monocytes (%) (Auto) 9 % (0-9) Eosinophils (%) (Auto) 3 % (0-3) Basophils (%) (Auto) 1 % (0-3) Neutrophils # (Auto) 7.4 x10^3uL (1.8-7.7) Lymphocytes # (Auto) 1.7 x10^3/uL (1.0-4.8) Monocytes # (Auto) 0.9 x10^3/uL (0.0-1.1) Eosinophils # (Auto) 0.3 x10^3/uL (0.0-0.7) Basophils # (Auto) 0.1 x10^3/uL (0.0-0.2) Sodium Level 139 mmol/L (136-145) Potassium Level 3.3 mmol/L (3.5-5.1) Chloride Level 105 mmol/L (98-107) Carbon Dioxide Level 26 mmol/L (21-32) Anion Gap 8 (6-14) Blood Urea Nitrogen 6 mg/dL (8-26) Creatinine 0.7 mg/dL (0.7-1.3) Estimated GFR (Cockcroft-Gault) 119.4 BUN/Creatinine Ratio 9 (6-20) Glucose Level 104 mg/dL (70-99) Calcium Level 8.1 mg/dL (8.5-10.1) Total Bilirubin 0.4 mg/dL (0.2-1.0) Aspartate Amino Transf (AST/SGOT) 74 U/L (15-37) Alanine Aminotransferase (ALT/SGPT) 35 U/L (16-63) Alkaline Phosphatase 51 U/L (46-116) Total Protein 5.3 g/dL (6.4-8.2) Albumin 2.3 g/dL (3.4-5.0) Albumin/Globulin Ratio 0.8 (1.0-1.7) Laboratory Tests Test 12/13/18 19:15 12/14/18 01:55 12/14/18 04:45 Sodium Level 138 mmol/L (136-145) 139 mmol/L (136-145) Potassium Level 3.4 mmol/L (3.5-5.1) 3.3 mmol/L (3.5-5.1) Chloride Level 103 mmol/L (98-107) 105 mmol/L (98-107) Carbon Dioxide Level 29 mmol/L (21-32) 26 mmol/L (21-32) Anion Gap 6 (6-14) 8 (6-14) Blood Urea Nitrogen 11 mg/dL (8-26) 6 mg/dL (8-26) Creatinine 0.7 mg/dL (0.7-1.3) 0.7 mg/dL (0.7-1.3) Estimated GFR (Cockcroft-Gault) 119.4 119.4 Glucose Level 143 mg/dL (70-99) 104 mg/dL (70-99) Calcium Level 8.2 mg/dL (8.5-10.1) 8.1 mg/dL (8.5-10.1) Urine Opiates Screen Neg (NEG) Urine Methadone Screen Neg (NEG) Urine Barbiturates Neg (NEG) Urine Phencyclidine Screen Neg (NEG) Urine Amphetamine/Methamphetamine Neg (NEG) Urine Benzodiazepines Screen Pos (NEG) Urine Cocaine Screen Neg (NEG) Urine Cannabinoids Screen Neg (NEG) Urine Ethyl Alcohol Neg (NEG) White Blood Count 10.3 x10^3/uL (4.0-11.0) Red Blood Count 3.96 x10^6/uL (4.30-5.70) Hemoglobin 11.5 g/dL (13.0-17.5) Hematocrit 34.4 % (39.0-53.0) Mean Corpuscular Volume 87 fL (79-100) Mean Corpuscular Hemoglobin 29 pg (25-35) Mean Corpuscular Hemoglobin Concent 34 g/dL (31-37) Red Cell Distribution Width 12.6 % (11.5-14.5) Platelet Count 215 x10^3/uL (140-400) Neutrophils (%) (Auto) 72 % (31-73) Lymphocytes (%) (Auto) 16 % (24-48) Monocytes (%) (Auto) 9 % (0-9) Eosinophils (%) (Auto) 3 % (0-3) Basophils (%) (Auto) 1 % (0-3) Neutrophils # (Auto) 7.4 x10^3uL (1.8-7.7) Lymphocytes # (Auto) 1.7 x10^3/uL (1.0-4.8) Monocytes # (Auto) 0.9 x10^3/uL (0.0-1.1) Eosinophils # (Auto) 0.3 x10^3/uL (0.0-0.7) Basophils # (Auto) 0.1 x10^3/uL (0.0-0.2) BUN/Creatinine Ratio 9 (6-20) Total Bilirubin 0.4 mg/dL (0.2-1.0) Aspartate Amino Transf (AST/SGOT) 74 U/L (15-37) Alanine Aminotransferase (ALT/SGPT) 35 U/L (16-63) Alkaline Phosphatase 51 U/L (46-116) Total Protein 5.3 g/dL (6.4-8.2) Albumin 2.3 g/dL (3.4-5.0) Albumin/Globulin Ratio 0.8 (1.0-1.7) Medications Current Medications Ondansetron HCl (Zofran) 4 mg STK-MED ONCE .ROUTE ; Start 12/11/18 at 10:09; Stop 12/11/18 at 10:10; Status DC Ondansetron HCl (Zofran) 4 mg 1X ONCE IV Last administered on 12/11/18at 10:11 ; Start 12/11/18 at 10:15; Stop 12/11/18 at 10:16; Status DC Sodium Chloride 1,000 ml @ 1,000 mls/hr 1X ONCE IV Last administered on at 10:12; Start 12/11/18 at 10:15; Stop 12/11/18 at 11:14; Status DC Propofol 50 ml @ As Directed STK-MED ONCE IV ; Start 12/11/18 at 10:16; Stop at 10:17; Status DC Propofol 100 ml @ 0 mls/hr CONT PRN IV SEE PROTOCOL Last administered on at 10:35; Start 12/11/18 at 10:30; Stop 12/13/18 at 15:47; Status DC Fentanyl Citrate (Fentanyl 2ml Vial) 25 mcg PRN Q1HR PRN IV SEE COMMENTS; Start 12/11/18 at 10:30 Fentanyl Citrate (Fentanyl 2ml Vial) 50 mcg PRN Q1HR PRN IV SEE COMMENTS Last administered on 12/11/18at 16:04; Start 12/11/18 at 10:30 Chlorhexidine Gluconate (Peridex) 15 ml BID MM Last administered on 12/12/18at 09:00; Start 12/11/18 at 21:00; Stop 12/12/18 at 20:56; Status DC Sodium Bicarbonate (Sodium Bicarb Adult 8.4% Syr) 150 meq 1X ONCE IV Last administered on 12/11/18at 11:27; Start 12/11/18 at 11:00; Stop 12/11/18 at 11:06 ; Status DC Sodium Bicarbonate 100 meq/Dextrose 1,100 ml @ 200 mls/hr Q5H30M IV Last administered on 12/12/18at 09:57; Start 12/11/18 at 11:15; Stop 12/12/18 at 11:34 ; Status DC Tetanus/ Diphtheria Toxoids (Tenivac Syringe) 0.5 ml ONCE ONCE VAX IM Last administered on 12/11/18at 11:41; Start 12/11/18 at 11:15; Stop 12/11/18 at 11:16 ; Status DC Propofol 50 ml @ As Directed STK-MED ONCE IV ; Start 12/11/18 at 11:38; Stop at 11:39; Status DC Etomidate (Amidate) 20 mg STK-MED ONCE IV ; Start 12/11/18 at 11:48; Stop at 11:49; Status DC Succinylcholine Chloride (Anectine) 200 mg STK-MED ONCE .ROUTE ; Start 12/11/18 at 11:49; Stop 12/11/18 at 11:50; Status DC Midazolam HCl 100 ml @ 5 mls/hr CONT PRN IV SEE I/O RECORD Last administered on 12/12/18at 09:38; Start 12/11/18 at 14:00; Stop 12/13/18 at 15:47; Status DC Midazolam HCl 100 ml @ 5 mls/hr CONT PRN IV SEE I/O RECORD; Start 12/11/18 at 13:45; Status UNV Sodium Chloride 1,000 ml @ 999 mls/hr 1X ONCE IV Last administered on at 14:19; Start 12/11/18 at 14:00; Stop 12/11/18 at 15:00; Status DC Norepinephrine Bitartrate 250 ml @ 1.875 mls/ hr CONT PRN IV SEE I/O RECORD Last administered on 12/12/18at 04:04; Start 12/11/18 at 14:45 Fentanyl Citrate 30 ml @ 0 mls/hr CONT PRN PRN IV PER PROTOCOL Last administered on 12/12/18at 10:24; Start 12/11/18 at 18:15; Stop 12/13/18 at 15:47 ; Status DC Potassium Chloride/Water 100 ml @ 100 mls/hr Q1H IV Last administered on at 01:04; Start 12/11/18 at 22:00; Stop 12/12/18 at 01:59; Status DC Potassium Chloride/Water 100 ml @ 100 mls/hr Q1H IV Last administered on at 05:05; Start 12/12/18 at 02:00; Stop 12/12/18 at 05:59; Status DC Potassium Chloride/Water 100 ml @ 100 mls/hr Q1H IV Last administered on at 14:45; Start 12/12/18 at 07:00; Stop 12/12/18 at 14:59; Status DC Sodium Chloride 1,000 ml @ 100 mls/hr Q10H IV Last administered on 12/13/18at 21:05; Start 12/12/18 at 12:00 Amino Acids/ Glycerin/ Electrolytes 1,000 ml @ 80 mls/hr [id number] IV Last administered on 12/12/18at 23:50; Start 12/12/18 at 12:00; Stop 12/13/18 at 15:47 ; Status DC Piperacillin Sod/ Tazobactam Sod (Zosyn Per Pharmacy) 1 each PRN DAILY PRN MC SEE COMMENTS; Start 12/12/18 at 14:15; Status Cancel Piperacillin Sod/ Tazobactam Sod 3.375 gm/Sodium Chloride 50 ml @ 100 mls/hr Q6HRS IV Last administered on 12/13/18at 12:00; Start 12/12/18 at 15:00; Stop at 13:05; Status DC Acetaminophen (Tylenol) 650 mg PRN Q6HRS PRN PO FEVER > 100.5'F Last administered on 12/12/18at 15:38; Start 12/12/18 at 15:45 Sodium Chloride 1,000 ml @ 120 mls/hr 1X ONCE IV Last administered on at 19:20; Start 12/12/18 at 19:00; Stop 12/13/18 at 03:19; Status DC Nicotine (Nicoderm Cq 21mg) 1 patch DAILY TD Last administered on 12/14/18at 08: 21; Start 12/12/18 at 23:45 Hydralazine HCl (Apresoline Inj) 10 mg PRN Q4HRS PRN IVP ELEVATED BP, SEE COMMENTS Last administered on 12/13/18at 08:30; Start 12/13/18 at 08:30 Potassium Chloride (Klor-Con) 40 meq Q2H PO Last administered on 12/13/18at 13: 14; Start 12/13/18 at 09:00; Stop 12/13/18 at 13:01; Status DC Lorazepam (Ativan) 1 mg PRN Q6HRS PRN IV ANXIETY / AGITATION Last administered on 12/13/18at 13:08; Start 12/13/18 at 09:45 Metoprolol Succinate (Toprol Xl) 25 mg DAILY PO Last administered on 12/13/18at 11:14; Start 12/13/18 at 11:00; Stop 12/13/18 at 12:52; Status DC Metoprolol Succinate (Toprol Xl) 50 mg DAILY PO Last administered on 12/14/18at 08:25; Start 12/14/18 at 09:00; Stop 12/14/18 at 09:00; Status DC Hydralazine HCl (Apresoline Inj) 20 mg 1X ONCE IVP Last administered on at 13:00; Start 12/13/18 at 13:00; Stop 12/13/18 at 13:01; Status DC Metoprolol Succinate (Toprol Xl) 25 mg 1X ONCE PO Last administered on at 13:13; Start 12/13/18 at 13:00; Stop 12/13/18 at 13:01; Status DC Amoxicillin/ Clavulanate Potassium (Augmentin 875/ 125mg) 1 tab BID PO Last administered on 12/14/18at 08:22; Start 12/13/18 at 21:00 Potassium Phos/ Sodium Phos (Phos-Nak) 1 pkt DAILY PO Last administered on 12/14at 08:59; Start 12/14/18 at 09:00 Potassium Chloride (Klor-Con) 20 meq [id number] PO Last administered on at 08:20; Start 12/14/18 at 08:00 Multivitamins 10 ml/Thiamine HCl 100 mg/Folic Acid 1 mg/Sodium Chloride 1,011.2 ml @ 100 mls/ hr DAILY IV Last administered on 12/14/18at 08:22; Start at 15:00; Stop 12/17/18 at 19:07 Lorazepam (Ativan) 4 mg PRN Q1HR PRN PO For CIWA 8-14 Last administered on 12/13at 15:00; Start 12/13/18 at 14:00 Lorazepam (Ativan) 2 mg PRN Q1HR PRN IV For CIWA 8-14 Last administered on 12/13at 23:49; Start 12/13/18 at 14:00 Haloperidol Lactate (Haldol Inj) 5 mg PRN Q4HRS PRN IVP Hallucinatns,Confusn, Delirium; Start 12/13/18 at 14:00 Lisinopril (Prinivil) 10 mg DAILY PO Last administered on 12/14/18at 08:21; Start 12/14/18 at 09:00; Stop 12/14/18 at 09:00; Status DC Lisinopril (Prinivil) 20 mg DAILY PO ; Start 12/14/18 at 09:00; Status Cancel Lisinopril (Prinivil) 10 mg ONCE ONCE PO Last administered on 12/14/18at 09:06 ; Start 12/14/18 at 09:00; Stop 12/14/18 at 09:01; Status DC Lisinopril (Prinivil) 20 mg DAILY PO ; Start 12/15/18 at 09:00 Active Scripts Active Keflex (Cephalexin) 500 Mg Capsule 1 Cap PO QID 7 Days Reported Aspirin 325 Mg Tablet 1 Tab PO DAILY Benadryl (Diphenhydramine Hcl) 25 Mg Capsule 1 Cap PO QHS Metoprolol Succinate ( Xl ) (Metoprolol Succinate) 25 Mg Tab.er.24h 1 Tab PO DAILY Vitals/I & O Vital Sign - Last 24 Hours 12/13/18 12/13/18 12/13/18 12/13/18 10:00 11:00 11:14 12:00 Temp 98.6 98.6 Pulse 95 101 102 101 Resp 22 20 20 B/P (MAP) 198/105 (136) 189/108 (135) 189/100 189/108 (135) Pulse Ox 98 98 98 O2 Delivery Room Air Room Air Room Air 12/13/18 12/13/18 12/13/18 12/13/18 12:00 13:00 13:00 13:13 Pulse 103 122 107 Resp 22 B/P (MAP) 201/100 (133) O2 Delivery Room Air Room Air 12/13/18 12/13/18 12/13/18 12/13/18 14:00 15:00 16:00 16:00 Pulse 109 107 104 Resp 20 20 18 B/P (MAP) 156/75 (102) 169/96 (120) 173/89 (117) O2 Delivery Room Air Room Air Room Air Room Air 12/13/18 12/13/18 12/13/18 12/13/18 16:03 17:00 17:55 19:00 Temp 98.6 98.6 Pulse 102 105 96 Resp 18 22 20 B/P (MAP) 156/76 (102) 153/80 (104) 168/98 (121) 142/84 (103) Pulse Ox 96 O2 Delivery Room Air Room Air Room Air Room Air 12/13/18 12/13/18 12/13/18 12/13/18 20:00 20:00 21:00 22:00 Pulse 97 96 95 Resp 22 24 24 B/P (MAP) 142/73 (96) 132/69 (90) 148/77 (100) Pulse Ox 97 87 94 O2 Delivery Room Air Room Air Room Air Room Air 12/13/18 12/13/18 12/13/18 12/14/18 23:00 23:59 23:59 01:02 Temp 99.2 99.2 Pulse 105 103 101 Resp 18 20 20 B/P (MAP) 137/78 (97) 162/81 (108) 150/71 (97) Pulse Ox 95 97 O2 Delivery Room Air Room Air Room Air Room Air 12/14/18 12/14/18 12/14/18 12/14/18 02:03 03:01 04:02 04:08 Temp 99.6 99.6 Pulse 99 93 89 Resp 18 20 18 B/P (MAP) 169/94 (119) 161/92 (115) 119/71 (87) Pulse Ox 97 96 O2 Delivery Room Air Room Air Room Air Room Air 12/14/18 12/14/18 12/14/18 12/14/18 05:06 06:01 07:00 08:00 Temp 98.2 98.2 Pulse 88 94 84 Resp 18 18 20 B/P (MAP) 147/84 (105) 153/72 (99) 153/78 (103) Pulse Ox 98 98 O2 Delivery Room Air Room Air Room Air Room Air 12/14/18 12/14/18 12/14/18 12/14/18 08:00 08:21 08:25 09:00 Temp 98.5 98.5 Pulse 86 98 96 91 Resp 18 18 B/P (MAP) 164/90 (114) 164/90 164/90 158/87 (110) Pulse Ox 96 96 O2 Delivery Room Air Room Air 12/14/18 09:06 Pulse 93 B/P (MAP) 158/97 Intake and Output 12/13/18 12/13/18 12/14/18 15:00 23:00 07:00 Intake Total 2546 ml 775 ml 200 ml Output Total 2385 ml 1200 ml 250 ml Balance 161 ml -425 ml -50 ml DAYLIN PAULINO MD Dec 14, 2018 09:17
--- NOTE | 2018-12-14 10:06 | NUR ---
Patient is oriented, calm, cooperative. CIWA score negative. States he does not have any thoughts of hurting himself at this time. Seems hopeful at prospect of psych care program. Docketing Specialist contacted for plan for today, we are awaiting acceptance from [facility]. [facility] will come see patient today. Patient's daughter, Kennedi, is at bedside.
--- NOTE | 2018-12-14 11:02 | PDOC ---
PULMONARY PROGRESS NOTES Subjective EXTUBATED 12/12 NOW SORE THROAT Vitals Vital Signs Date Time Temp Pulse Resp B/P (MAP) Pulse Ox O2 Delivery O2 Flow Rate FiO2 12/14/18 10:00 97 18 173/93 (119) Room Air 12/14/18 09:00 98.5 96 98.5 ROS: No Nausea, No Chest Pain, No Abdominal Pain, No Increase Cough Lungs: Clear, Crackles Cardiovascular: S1, S2 Abdomen: Soft Neuro Exam: Alert Extremities: No Edema Skin: Warm Labs Laboratory Tests Test 12/12/18 17:55 12/13/18 01:55 12/13/18 06:00 12/13/18 19:15 Sodium Level 137 mmol/L (136-145) 136 mmol/L (136-145) 138 mmol/L (136-145) Potassium Level 3.1 mmol/L (3.5-5.1) 3.0 mmol/L (3.5-5.1) 3.4 mmol/L (3.5-5.1) Chloride Level 97 mmol/L (98-107) 98 mmol/L (98-107) 103 mmol/L (98-107) Carbon Dioxide Level 33 mmol/L (21-32) 32 mmol/L (21-32) 29 mmol/L (21-32) Anion Gap 7 (6-14) 6 (6-14) 6 (6-14) Blood Urea Nitrogen 15 mg/dL (8-26) 14 mg/dL (8-26) 11 mg/dL (8-26) Creatinine 1.0 mg/dL (0.7-1.3) 0.8 mg/dL (0.7-1.3) 0.7 mg/dL (0.7-1.3) Estimated GFR (Cockcroft-Gault) 79.1 102.3 119.4 BUN/Creatinine Ratio 15 (6-20) 18 (6-20) Glucose Level 93 mg/dL (70-99) 98 mg/dL (70-99) 143 mg/dL (70-99) Calcium Level 7.9 mg/dL (8.5-10.1) 8.2 mg/dL (8.5-10.1) 8.2 mg/dL (8.5-10.1) Phosphorus Level 2.7 mg/dL (2.6-4.7) 2.0 mg/dL (2.6-4.7) Magnesium Level 1.9 mg/dL (1.8-2.4) 2.1 mg/dL (1.8-2.4) Total Bilirubin 0.7 mg/dL (0.2-1.0) 0.7 mg/dL (0.2-1.0) Aspartate Amino Transf (AST/SGOT) 62 U/L (15-37) 80 U/L (15-37) Alanine Aminotransferase (ALT/SGPT) 26 U/L (16-63) 31 U/L (16-63) Alkaline Phosphatase 53 U/L (46-116) 51 U/L (46-116) Total Protein 4.8 g/dL (6.4-8.2) 5.3 g/dL (6.4-8.2) Albumin 2.3 g/dL (3.4-5.0) 2.2 g/dL (3.4-5.0) Albumin/Globulin Ratio 0.9 (1.0-1.7) 0.7 (1.0-1.7) Salicylates Level 11.1 mg/dL (2.8-20.0) 6.2 mg/dL (2.8-20.0) 3.7 mg/dL (2.8-20.0) Salicylate Last Dose Date Unk 12/11/18 12/11/18 Salicylate Last Dose Time Unk 0800 0800 White Blood Count 14.2 x10^3/uL (4.0-11.0) Red Blood Count 4.33 x10^6/uL (4.30-5.70) Hemoglobin 12.6 g/dL (13.0-17.5) Hematocrit 37.5 % (39.0-53.0) Mean Corpuscular Volume 87 fL (79-100) Mean Corpuscular Hemoglobin 29 pg (25-35) Mean Corpuscular Hemoglobin Concent 34 g/dL (31-37) Red Cell Distribution Width 12.6 % (11.5-14.5) Platelet Count 207 x10^3/uL (140-400) Neutrophils (%) (Auto) 80 % (31-73) Lymphocytes (%) (Auto) 10 % (24-48) Monocytes (%) (Auto) 8 % (0-9) Eosinophils (%) (Auto) 2 % (0-3) Basophils (%) (Auto) 0 % (0-3) Neutrophils # (Auto) 11.4 x10^3uL (1.8-7.7) Lymphocytes # (Auto) 1.5 x10^3/uL (1.0-4.8) Monocytes # (Auto) 1.1 x10^3/uL (0.0-1.1) Eosinophils # (Auto) 0.2 x10^3/uL (0.0-0.7) Basophils # (Auto) 0.0 x10^3/uL (0.0-0.2) Troponin I Quantitative 0.155 ng/mL (0.000-0.055) Free Thyroxine 1.09 ng/dL (0.76-1.46) Test 12/14/18 01:55 12/14/18 04:45 Urine Opiates Screen Neg (NEG) Urine Methadone Screen Neg (NEG) Urine Barbiturates Neg (NEG) Urine Phencyclidine Screen Neg (NEG) Urine Amphetamine/Methamphetamine Neg (NEG) Urine Benzodiazepines Screen Pos (NEG) Urine Cocaine Screen Neg (NEG) Urine Cannabinoids Screen Neg (NEG) Urine Ethyl Alcohol Neg (NEG) White Blood Count 10.3 x10^3/uL (4.0-11.0) Red Blood Count 3.96 x10^6/uL (4.30-5.70) Hemoglobin 11.5 g/dL (13.0-17.5) Hematocrit 34.4 % (39.0-53.0) Mean Corpuscular Volume 87 fL (79-100) Mean Corpuscular Hemoglobin 29 pg (25-35) Mean Corpuscular Hemoglobin Concent 34 g/dL (31-37) Red Cell Distribution Width 12.6 % (11.5-14.5) Platelet Count 215 x10^3/uL (140-400) Neutrophils (%) (Auto) 72 % (31-73) Lymphocytes (%) (Auto) 16 % (24-48) Monocytes (%) (Auto) 9 % (0-9) Eosinophils (%) (Auto) 3 % (0-3) Basophils (%) (Auto) 1 % (0-3) Neutrophils # (Auto) 7.4 x10^3uL (1.8-7.7) Lymphocytes # (Auto) 1.7 x10^3/uL (1.0-4.8) Monocytes # (Auto) 0.9 x10^3/uL (0.0-1.1) Eosinophils # (Auto) 0.3 x10^3/uL (0.0-0.7) Basophils # (Auto) 0.1 x10^3/uL (0.0-0.2) Sodium Level 139 mmol/L (136-145) Potassium Level 3.3 mmol/L (3.5-5.1) Chloride Level 105 mmol/L (98-107) Carbon Dioxide Level 26 mmol/L (21-32) Anion Gap 8 (6-14) Blood Urea Nitrogen 6 mg/dL (8-26) Creatinine 0.7 mg/dL (0.7-1.3) Estimated GFR (Cockcroft-Gault) 119.4 BUN/Creatinine Ratio 9 (6-20) Glucose Level 104 mg/dL (70-99) Calcium Level 8.1 mg/dL (8.5-10.1) Total Bilirubin 0.4 mg/dL (0.2-1.0) Aspartate Amino Transf (AST/SGOT) 74 U/L (15-37) Alanine Aminotransferase (ALT/SGPT) 35 U/L (16-63) Alkaline Phosphatase 51 U/L (46-116) Total Protein 5.3 g/dL (6.4-8.2) Albumin 2.3 g/dL (3.4-5.0) Albumin/Globulin Ratio 0.8 (1.0-1.7) Laboratory Tests Test 12/13/18 19:15 12/14/18 01:55 12/14/18 04:45 Sodium Level 138 mmol/L (136-145) 139 mmol/L (136-145) Potassium Level 3.4 mmol/L (3.5-5.1) 3.3 mmol/L (3.5-5.1) Chloride Level 103 mmol/L (98-107) 105 mmol/L (98-107) Carbon Dioxide Level 29 mmol/L (21-32) 26 mmol/L (21-32) Anion Gap 6 (6-14) 8 (6-14) Blood Urea Nitrogen 11 mg/dL (8-26) 6 mg/dL (8-26) Creatinine 0.7 mg/dL (0.7-1.3) 0.7 mg/dL (0.7-1.3) Estimated GFR (Cockcroft-Gault) 119.4 119.4 Glucose Level 143 mg/dL (70-99) 104 mg/dL (70-99) Calcium Level 8.2 mg/dL (8.5-10.1) 8.1 mg/dL (8.5-10.1) Urine Opiates Screen Neg (NEG) Urine Methadone Screen Neg (NEG) Urine Barbiturates Neg (NEG) Urine Phencyclidine Screen Neg (NEG) Urine Amphetamine/Methamphetamine Neg (NEG) Urine Benzodiazepines Screen Pos (NEG) Urine Cocaine Screen Neg (NEG) Urine Cannabinoids Screen Neg (NEG) Urine Ethyl Alcohol Neg (NEG) White Blood Count 10.3 x10^3/uL (4.0-11.0) Red Blood Count 3.96 x10^6/uL (4.30-5.70) Hemoglobin 11.5 g/dL (13.0-17.5) Hematocrit 34.4 % (39.0-53.0) Mean Corpuscular Volume 87 fL (79-100) Mean Corpuscular Hemoglobin 29 pg (25-35) Mean Corpuscular Hemoglobin Concent 34 g/dL (31-37) Red Cell Distribution Width 12.6 % (11.5-14.5) Platelet Count 215 x10^3/uL (140-400) Neutrophils (%) (Auto) 72 % (31-73) Lymphocytes (%) (Auto) 16 % (24-48) Monocytes (%) (Auto) 9 % (0-9) Eosinophils (%) (Auto) 3 % (0-3) Basophils (%) (Auto) 1 % (0-3) Neutrophils # (Auto) 7.4 x10^3uL (1.8-7.7) Lymphocytes # (Auto) 1.7 x10^3/uL (1.0-4.8) Monocytes # (Auto) 0.9 x10^3/uL (0.0-1.1) Eosinophils # (Auto) 0.3 x10^3/uL (0.0-0.7) Basophils # (Auto) 0.1 x10^3/uL (0.0-0.2) BUN/Creatinine Ratio 9 (6-20) Total Bilirubin 0.4 mg/dL (0.2-1.0) Aspartate Amino Transf (AST/SGOT) 74 U/L (15-37) Alanine Aminotransferase (ALT/SGPT) 35 U/L (16-63) Alkaline Phosphatase 51 U/L (46-116) Total Protein 5.3 g/dL (6.4-8.2) Albumin 2.3 g/dL (3.4-5.0) Albumin/Globulin Ratio 0.8 (1.0-1.7) Medications Active Scripts Medications Dose Route/Sig Max Daily Dose Days Date Category Keflex (Cephalexin) 500 Mg Capsule 1 Cap PO QID 7 06/20/18 Rx Impression . IMPRESSION: 1. Acute respiratory failure secondary to salicylate intoxication. 2. Beta mariely intoxication. The patient is recently on metoprolol. 3. Metabolic toxic encephalopathy. 4. Hyponatremia. 5. Leukocytosis, suspect reactive. 6 FEVER Plan . D/W DR SANTAMARIA RESP STATUS IS COMPENSATED WILL S/O THANKS CALL IF NEEDED CONTINUE AUGMENTIN FOR TOTAL OF 10 DAYS MAISHA NUNEZ MD Dec 14, 2018 11:02
--- NOTE | 2018-12-14 11:07 | NUR ---
SS following up with discharge planning. Eduard contacted SS and was notified that they cannot meet pt's needs. Williams from PAT team reached out to [facility] and notified that they have no beds available for pt. Williams reached out to [facility] and was declined as well. SS discussed alternate plans with Williams from PAT team. SS spoke with physician about antidepressant. SS contacted pt's son, Domingo, , and left message requesting family meeting to further discuss helping pt apply for SSI/Disability to obtain Medicaid and alternative plans for addressing mental health needs. Williams from PAT team notified and continuing to reach out to facilities.
[2018-12-14] MEDS ORDERED: POTASSIUM CHLORIDE 20 MEQ TABLET.ER. PO ONE (11:45)
--- NOTE | 2018-12-14 11:53 | NUR ---
Luci from spoke with patient's daughter, Kennedi, to discuss need for arranging a family meeting. Kennedi states that her brother, Williams, was attempting to reach out to a infrastructure director today to try to help with a financial POA. Kennedi will contact family and let us know when they will be able to attend a family meeting either later or today or tomorrow.
[2018-12-14] MEDS: SERTRALINE 50 MG TABLET. PO SCH ×2 (12:19→12:30)
--- NOTE | 2018-12-14 12:31 | NUR ---
Patient asking about possible admission to [facility] for psych treatment. Contacted Luci from to see if that particular facility would be an option. She will pass the information on to Williams.
--- NOTE | 2018-12-14 12:32 | NUR ---
Page placed to Dr. Wang. He had prescribed Zoloft for patient. According to patient, he is "pretty sure" he has taken Zoloft in the past and had a bad reaction to it. He reports "only taking 2 doses and it was like I was on speed. I don't want to take it again." Medication held. Awaiting call back from Dr. Wang.
[2018-12-14] MEDS: LORazepam 1 MG TABLET PO PRN (15:44)
--- NOTE | 2018-12-14 16:22 | NUR ---
JOSE ALBERTO following pt. Per pt's family request, JOSE ALBERTO met with pt and family. Pt completed health care AD form. Pt is provided with Notarized AD and copies to take home. A copy also placed on chart. JOSE ALBERTO notified pt's son to do financial DPOA with a water resource engineering specialist. JOSE ALBERTO informed family, pt will be seen by HCFS tomorrow to see if he meets criteria for Medicaid or disability. JOSE ALBERTO has informed family in case if he does not qualify, they are still able to apply Medicaid and file for disability as well. Pt reported he lives in [place] and JOSE ALBERTO informed pt he will need to [place]. JOSE ALBERTO will continue to follow pt.
[2018-12-14] MEDS: LACTOBACILLUS RHAMNOSUS GG 1 CAPSULE. PO SCH (20:11)
[2018-12-14] MEDS: hydrALAZINE 20 MG/ML VIAL. IVP PRN (22:00)
[2018-12-15] VITALS (7 sets, daily range): BP systolic 151–205; BP diastolic 92–127
[2018-12-15 06:46] LABS: CALCIUM 8.3 mg/dL (8.5-10.1); CREATININE 0.6 mg/dL (0.7-1.3); GFR 142.6; POTASSIUM 3.6 mmol/L (3.5-5.1)
[2018-12-15] MEDS ORDERED: POTASSIUM CHLORIDE 20 MEQ TABLET.ER. PO SCH (08:00)
[2018-12-15] MEDS: NICOTINE 21MG PATCH. TD SCH (08:18)
[2018-12-15] MEDS: LISINOPRIL 20 MG TABLET PO SCH (08:18)
[2018-12-15] MEDS: POTASSIUM CHLORIDE 20 MEQ TABLET.ER. PO SCH (08:18)
[2018-12-15] MEDS: LACTOBACILLUS RHAMNOSUS GG 1 CAPSULE. PO SCH ×2 (08:19→20:12)
[2018-12-15] MEDS: MULTIVIT INFUSN,ADULT 4,VIT K 10 ML, THIAMINE INJ 100 MG, FOLIC ACID INJ 1 MG in IV NOR... IV SCH (08:19)
[2018-12-15] MEDS: SERTRALINE 50 MG TABLET. PO SCH (08:19)
[2018-12-15] MEDS: AMOXICILLIN/K CLAV 875/125MG TABLET. PO SCH ×2 (08:19→20:12)
[2018-12-15] MEDS ORDERED: LISINOPRIL 20 MG TABLET PO SCH (09:00)
--- NOTE | 2018-12-15 09:16 | RAD ---
EXAM: Chest, single view. HISTORY: Respiratory failure. COMPARISON: 12/14/2018. FINDINGS: A frontal view of the chest is obtained. There is no infiltrate, pleural effusion or pneumothorax. The heart is normal in size. There are calcified granulomas. IMPRESSION: No acute pulmonary finding. Electronically signed by: Niurka Forrester MD (12/15/2018 9:13 AM) [id number]
--- NOTE | 2018-12-15 09:33 | PDOC ---
PULMONARY PROGRESS NOTES Subjective EXTUBATED 12/12 NOW SORE THROAT Vitals Vital Signs Date Time Temp Pulse Resp B/P (MAP) Pulse Ox O2 Delivery O2 Flow Rate FiO2 12/15/18 08:54 Room Air 12/15/18 08:18 87 151/92 12/15/18 06:58 98.2 18 95 98.2 12/14/18 16:09 2.0 ROS: No Nausea, No Chest Pain, No Abdominal Pain, No Increase Cough Lungs: Clear, Crackles Cardiovascular: S1, S2 Abdomen: Soft Neuro Exam: Alert Extremities: No Edema Skin: Warm Labs Laboratory Tests Test 12/13/18 19:15 12/14/18 01:55 12/14/18 04:45 12/15/18 05:17 Sodium Level 138 mmol/L (136-145) 139 mmol/L (136-145) 140 mmol/L (136-145) Potassium Level 3.4 mmol/L (3.5-5.1) 3.3 mmol/L (3.5-5.1) 3.6 mmol/L (3.5-5.1) Chloride Level 103 mmol/L (98-107) 105 mmol/L (98-107) 105 mmol/L (98-107) Carbon Dioxide Level 29 mmol/L (21-32) 26 mmol/L (21-32) 24 mmol/L (21-32) Anion Gap 6 (6-14) 8 (6-14) 11 (6-14) Blood Urea Nitrogen 11 mg/dL (8-26) 6 mg/dL (8-26) 7 mg/dL (8-26) Creatinine 0.7 mg/dL (0.7-1.3) 0.7 mg/dL (0.7-1.3) 0.6 mg/dL (0.7-1.3) Estimated GFR (Cockcroft-Gault) 119.4 119.4 142.6 Glucose Level 143 mg/dL (70-99) 104 mg/dL (70-99) 91 mg/dL (70-99) Calcium Level 8.2 mg/dL (8.5-10.1) 8.1 mg/dL (8.5-10.1) 8.3 mg/dL (8.5-10.1) Urine Opiates Screen Neg (NEG) Urine Methadone Screen Neg (NEG) Urine Barbiturates Neg (NEG) Urine Phencyclidine Screen Neg (NEG) Urine Amphetamine/Methamphetamine Neg (NEG) Urine Benzodiazepines Screen Pos (NEG) Urine Cocaine Screen Neg (NEG) Urine Cannabinoids Screen Neg (NEG) Urine Ethyl Alcohol Neg (NEG) White Blood Count 10.3 x10^3/uL (4.0-11.0) Red Blood Count 3.96 x10^6/uL (4.30-5.70) Hemoglobin 11.5 g/dL (13.0-17.5) Hematocrit 34.4 % (39.0-53.0) Mean Corpuscular Volume 87 fL (79-100) Mean Corpuscular Hemoglobin 29 pg (25-35) Mean Corpuscular Hemoglobin Concent 34 g/dL (31-37) Red Cell Distribution Width 12.6 % (11.5-14.5) Platelet Count 215 x10^3/uL (140-400) Neutrophils (%) (Auto) 72 % (31-73) Lymphocytes (%) (Auto) 16 % (24-48) Monocytes (%) (Auto) 9 % (0-9) Eosinophils (%) (Auto) 3 % (0-3) Basophils (%) (Auto) 1 % (0-3) Neutrophils # (Auto) 7.4 x10^3uL (1.8-7.7) Lymphocytes # (Auto) 1.7 x10^3/uL (1.0-4.8) Monocytes # (Auto) 0.9 x10^3/uL (0.0-1.1) Eosinophils # (Auto) 0.3 x10^3/uL (0.0-0.7) Basophils # (Auto) 0.1 x10^3/uL (0.0-0.2) BUN/Creatinine Ratio 9 (6-20) Total Bilirubin 0.4 mg/dL (0.2-1.0) Aspartate Amino Transf (AST/SGOT) 74 U/L (15-37) Alanine Aminotransferase (ALT/SGPT) 35 U/L (16-63) Alkaline Phosphatase 51 U/L (46-116) Total Protein 5.3 g/dL (6.4-8.2) Albumin 2.3 g/dL (3.4-5.0) Albumin/Globulin Ratio 0.8 (1.0-1.7) Laboratory Tests Test 12/15/18 05:17 Sodium Level 140 mmol/L (136-145) Potassium Level 3.6 mmol/L (3.5-5.1) Chloride Level 105 mmol/L (98-107) Carbon Dioxide Level 24 mmol/L (21-32) Anion Gap 11 (6-14) Blood Urea Nitrogen 7 mg/dL (8-26) Creatinine 0.6 mg/dL (0.7-1.3) Estimated GFR (Cockcroft-Gault) 142.6 Glucose Level 91 mg/dL (70-99) Calcium Level 8.3 mg/dL (8.5-10.1) Medications Active Scripts Medications Dose Route/Sig Max Daily Dose Days Date Category Keflex (Cephalexin) 500 Mg Capsule 1 Cap PO QID 7 06/20/18 Rx Impression . IMPRESSION: 1. Acute respiratory failure secondary to salicylate intoxication. 2. Beta mariely intoxication. The patient is recently on metoprolol. 3. Metabolic toxic encephalopathy. 4. Hyponatremia. 5. Leukocytosis, suspect reactive. 6 FEVER Plan . D/W DR SANTAMARIA RESP STATUS IS COMPENSATED WILL S/O THANKS CALL IF NEEDED CONTINUE AUGMENTIN FOR TOTAL OF 10 DAYS MAISHA NUNEZ MD Dec 15, 2018 09:33
--- NOTE | 2018-12-15 09:52 | NUR ---
SW following pt. Williams will come at 1300 to meet with pt and pt's son, Domingo. Discussed with RN. Will continue to follow.
[2018-12-15] MEDS: CITALOPRAM 10 MG TABLET. PO SCH (10:24)
[2018-12-15] MEDS: amLODIPine BESYLATE 10 MG TABLET PO SCH (10:24)
[2018-12-15] MEDS: POTASSIUM & SODIUM PHOSPHATES PACKET. PO SCH (10:24)
[2018-12-15] MEDS: hydrALAZINE 20 MG/ML VIAL. IVP PRN ×2 (11:21→18:11)
--- NOTE | 2018-12-15 11:55 | PDOC ---
PROGRESS NOTES Chief Complaint Chief Complaint Blood pressure over 200s, asymptomatic Sitter at bedside [facility] will come up again 1 PM to reassess But I am uncomfortable discharging with a blood pressure 200 Plan: Increase Norvasc to 10 Start hydralazine 25 3 times a day Technically we can check hypertensive heart disease with echo or renal Dopplers rule out renal artery stenosis But see what he does in terms of the above BP adjustments Timentin for 10 days as recommended by pulmonary No beta mariely as recommended by cardiology because of suicidal ideation ( heart block if OD on BB) Claims intolerance or side effects to Zoloft Lexapro was planned - we don't carry? I did start Celexa 10 once a day History of Present Illness History of Present Illness ASSESSMENT AND PLAN: Suicide attempt attempt at STRANGLING self with electric cord, failed to work , slitting his wrist aspirin overdose . HX ALCOHOL ABUSE, FAMILY STATES HE DRINKS A LOT DRINKS OFTEN malignant hypertension, severe EXTREME SOCIAL STRESSORS hypokalemia No acute fracture of the cervical spine.on ct NSTEMI demand ischemia hypokalemia very worried about finances, business , tax liability. no previous suicide attempts agrees to start Lexapro low dose admitted to the ICU // extubated Pulmonary following consult Nephrology // aspirin overdose. place at [facility] planned Frequent labs. DVT prophylaxis. Full code iv hydralazine 20 mg x 1 now d/w rn 12/13 inc toprol xl to 50mg po daily psychiatric evaluation needed Prognosis is guarded urine drug screen frequent labs cardiology consult replace k HIGH RISK OF SUICIDE IN NEAR FUTURE// MIDDLE AGE MALE// ETOH ABUSE Total time on this critically ill patient 34 minutes. Vitals Vitals Vital Signs Date Time Temp Pulse Resp B/P (MAP) Pulse Ox O2 Delivery O2 Flow Rate FiO2 12/15/18 11:21 114 205/127 12/15/18 11:11 18 Room Air 12/15/18 11:03 98.3 97 98.3 12/14/18 16:09 2.0 Physical Exam Physical Exam HEART: Tachy S1, S2. LUNGS: cta ABDOMEN: Soft and distended. EXTREMITIES: Trace edema. blood on the bottom of his feet, hands and under his nails. The wrist has been slit on the right and the left. ENDOCRINE: No thyromegaly. LYMPHATICS: No cervical nodes. HEMATOPOIETIC: mild bruising on his neck. 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 Drsgs intact ) Labs LABS Laboratory Tests Test 12/15/18 05:17 Sodium Level 140 mmol/L (136-145) Potassium Level 3.6 mmol/L (3.5-5.1) Chloride Level 105 mmol/L (98-107) Carbon Dioxide Level 24 mmol/L (21-32) Anion Gap 11 (6-14) Blood Urea Nitrogen 7 mg/dL (8-26) Creatinine 0.6 mg/dL (0.7-1.3) Estimated GFR (Cockcroft-Gault) 142.6 Glucose Level 91 mg/dL (70-99) Calcium Level 8.3 mg/dL (8.5-10.1) Review of Systems Review of Systems A 14 point ROS was completed with the following noted as positive: Other systems reviewed and negative. \CONSTITUTIONAL: No fever or chills EYES: No recent changes SKIN: No rash or itching CARDIOVASCULAR: No chest pain, syncope, palpitations, or edema RESPIRATORY: No SOB or cough GASTROINTESTINAL: No nausea, vomiting or abdominal pain NEUROLOGICAL: No headaches or weakness ENDOCRINE: No cold or heat intolerance GENITOURINARY: No urgency or frequency of urination MUSCULOSKELETAL: No back pain or joint pain LYMPHATICS: No enlarged lymph nodes PSYCHIATRIC: No anxiety or depression Assessment and Plan Assessmemt and Plan Problems Medical Problems: (1) Laceration of left forearm Status: Acute (2) Laceration of left wrist Status: Acute (3) Laceration of right forearm Status: Acute (4) Salicylate overdose Status: Acute (5) Suicide attempt by beta mariely overdose Status: Acute (6) Suicide attempt by hanging Status: Acute Comment Review of Relevant I have reviewed the following items danis (where applicable) has been applied. Labs Laboratory Tests Test 12/13/18 19:15 12/14/18 01:55 12/14/18 04:45 12/15/18 05:17 Sodium Level 138 mmol/L (136-145) 139 mmol/L (136-145) 140 mmol/L (136-145) Potassium Level 3.4 mmol/L (3.5-5.1) 3.3 mmol/L (3.5-5.1) 3.6 mmol/L (3.5-5.1) Chloride Level 103 mmol/L (98-107) 105 mmol/L (98-107) 105 mmol/L (98-107) Carbon Dioxide Level 29 mmol/L (21-32) 26 mmol/L (21-32) 24 mmol/L (21-32) Anion Gap 6 (6-14) 8 (6-14) 11 (6-14) Blood Urea Nitrogen 11 mg/dL (8-26) 6 mg/dL (8-26) 7 mg/dL (8-26) Creatinine 0.7 mg/dL (0.7-1.3) 0.7 mg/dL (0.7-1.3) 0.6 mg/dL (0.7-1.3) Estimated GFR (Cockcroft-Gault) 119.4 119.4 142.6 Glucose Level 143 mg/dL (70-99) 104 mg/dL (70-99) 91 mg/dL (70-99) Calcium Level 8.2 mg/dL (8.5-10.1) 8.1 mg/dL (8.5-10.1) 8.3 mg/dL (8.5-10.1) Urine Opiates Screen Neg (NEG) Urine Methadone Screen Neg (NEG) Urine Barbiturates Neg (NEG) Urine Phencyclidine Screen Neg (NEG) Urine Amphetamine/Methamphetamine Neg (NEG) Urine Benzodiazepines Screen Pos (NEG) Urine Cocaine Screen Neg (NEG) Urine Cannabinoids Screen Neg (NEG) Urine Ethyl Alcohol Neg (NEG) White Blood Count 10.3 x10^3/uL (4.0-11.0) Red Blood Count 3.96 x10^6/uL (4.30-5.70) Hemoglobin 11.5 g/dL (13.0-17.5) Hematocrit 34.4 % (39.0-53.0) Mean Corpuscular Volume 87 fL (79-100) Mean Corpuscular Hemoglobin 29 pg (25-35) Mean Corpuscular Hemoglobin Concent 34 g/dL (31-37) Red Cell Distribution Width 12.6 % (11.5-14.5) Platelet Count 215 x10^3/uL (140-400) Neutrophils (%) (Auto) 72 % (31-73) Lymphocytes (%) (Auto) 16 % (24-48) Monocytes (%) (Auto) 9 % (0-9) Eosinophils (%) (Auto) 3 % (0-3) Basophils (%) (Auto) 1 % (0-3) Neutrophils # (Auto) 7.4 x10^3uL (1.8-7.7) Lymphocytes # (Auto) 1.7 x10^3/uL (1.0-4.8) Monocytes # (Auto) 0.9 x10^3/uL (0.0-1.1) Eosinophils # (Auto) 0.3 x10^3/uL (0.0-0.7) Basophils # (Auto) 0.1 x10^3/uL (0.0-0.2) BUN/Creatinine Ratio 9 (6-20) Total Bilirubin 0.4 mg/dL (0.2-1.0) Aspartate Amino Transf (AST/SGOT) 74 U/L (15-37) Alanine Aminotransferase (ALT/SGPT) 35 U/L (16-63) Alkaline Phosphatase 51 U/L (46-116) Total Protein 5.3 g/dL (6.4-8.2) Albumin 2.3 g/dL (3.4-5.0) Albumin/Globulin Ratio 0.8 (1.0-1.7) Laboratory Tests Test 12/15/18 05:17 Sodium Level 140 mmol/L (136-145) Potassium Level 3.6 mmol/L (3.5-5.1) Chloride Level 105 mmol/L (98-107) Carbon Dioxide Level 24 mmol/L (21-32) Anion Gap 11 (6-14) Blood Urea Nitrogen 7 mg/dL (8-26) Creatinine 0.6 mg/dL (0.7-1.3) Estimated GFR (Cockcroft-Gault) 142.6 Glucose Level 91 mg/dL (70-99) Calcium Level 8.3 mg/dL (8.5-10.1) Medications Current Medications Ondansetron HCl (Zofran) 4 mg [employer]-MED ONCE .ROUTE ; Start 12/11/18 at 10:09; Stop 12/11/18 at 10:10; Status DC Ondansetron HCl (Zofran) 4 mg 1X ONCE IV Last administered on 12/11/18at 10:11 ; Start 12/11/18 at 10:15; Stop 12/11/18 at 10:16; Status DC Sodium Chloride 1,000 ml @ 1,000 mls/hr 1X ONCE IV Last administered on at 10:12; Start 12/11/18 at 10:15; Stop 12/11/18 at 11:14; Status DC Propofol 50 ml @ As Directed STK-MED ONCE IV ; Start 12/11/18 at 10:16; Stop at 10:17; Status DC Propofol 100 ml @ 0 mls/hr CONT PRN IV SEE PROTOCOL Last administered on at 10:35; Start 12/11/18 at 10:30; Stop 12/13/18 at 15:47; Status DC Fentanyl Citrate (Fentanyl 2ml Vial) 25 mcg PRN Q1HR PRN IV SEE COMMENTS; Start 12/11/18 at 10:30 Fentanyl Citrate (Fentanyl 2ml Vial) 50 mcg PRN Q1HR PRN IV SEE COMMENTS Last administered on 12/11/18at 16:04; Start 12/11/18 at 10:30 Chlorhexidine Gluconate (Peridex) 15 ml BID MM Last administered on 12/12/18at 09:00; Start 12/11/18 at 21:00; Stop 12/12/18 at 20:56; Status DC Sodium Bicarbonate (Sodium Bicarb Adult 8.4% Syr) 150 meq 1X ONCE IV Last administered on 12/11/18at 11:27; Start 12/11/18 at 11:00; Stop 12/11/18 at 11:06 ; Status DC Sodium Bicarbonate 100 meq/Dextrose 1,100 ml @ 200 mls/hr Q5H30M IV Last administered on 12/12/18at 09:57; Start 12/11/18 at 11:15; Stop 12/12/18 at 11:34 ; Status DC Tetanus/ Diphtheria Toxoids (Tenivac Syringe) 0.5 ml ONCE ONCE VAX IM Last administered on 12/11/18at 11:41; Start 12/11/18 at 11:15; Stop 12/11/18 at 11:16 ; Status DC Propofol 50 ml @ As Directed STK-MED ONCE IV ; Start 12/11/18 at 11:38; Stop at 11:39; Status DC Etomidate (Amidate) 20 mg STK-MED ONCE IV ; Start 12/11/18 at 11:48; Stop at 11:49; Status DC Succinylcholine Chloride (Anectine) 200 mg STK-MED ONCE .ROUTE ; Start 12/11/18 at 11:49; Stop 12/11/18 at 11:50; Status DC Midazolam HCl 100 ml @ 5 mls/hr CONT PRN IV SEE I/O RECORD Last administered on 12/12/18at 09:38; Start 12/11/18 at 14:00; Stop 12/13/18 at 15:47; Status DC Midazolam HCl 100 ml @ 5 mls/hr CONT PRN IV SEE I/O RECORD; Start 12/11/18 at 13:45; Status UNV Sodium Chloride 1,000 ml @ 999 mls/hr 1X ONCE IV Last administered on at 14:19; Start 12/11/18 at 14:00; Stop 12/11/18 at 15:00; Status DC Norepinephrine Bitartrate 250 ml @ 1.875 mls/ hr CONT PRN IV SEE I/O RECORD Last administered on 12/12/18at 04:04; Start 12/11/18 at 14:45; Stop 12/14/18 at 15:12; Status DC Fentanyl Citrate 30 ml @ 0 mls/hr CONT PRN PRN IV PER PROTOCOL Last administered on 12/12/18at 10:24; Start 12/11/18 at 18:15; Stop 12/13/18 at 15:47 ; Status DC Potassium Chloride/Water 100 ml @ 100 mls/hr Q1H IV Last administered on at 01:04; Start 12/11/18 at 22:00; Stop 12/12/18 at 01:59; Status DC Potassium Chloride/Water 100 ml @ 100 mls/hr Q1H IV Last administered on at 05:05; Start 12/12/18 at 02:00; Stop 12/12/18 at 05:59; Status DC Potassium Chloride/Water 100 ml @ 100 mls/hr Q1H IV Last administered on at 14:45; Start 12/12/18 at 07:00; Stop 12/12/18 at 14:59; Status DC Sodium Chloride 1,000 ml @ 100 mls/hr Q10H IV Last administered on 12/14/18at 20:11; Start 12/12/18 at 12:00; Stop 12/15/18 at 08:58; Status DC Amino Acids/ Glycerin/ Electrolytes 1,000 ml @ 80 mls/hr [id number] IV Last administered on 12/12/18at 23:50; Start 12/12/18 at 12:00; Stop 12/13/18 at 15:47 ; Status DC Piperacillin Sod/ Tazobactam Sod (Zosyn Per Pharmacy) 1 each PRN DAILY PRN MC SEE COMMENTS; Start 12/12/18 at 14:15; Status Cancel Piperacillin Sod/ Tazobactam Sod 3.375 gm/Sodium Chloride 50 ml @ 100 mls/hr Q6HRS IV Last administered on 12/13/18at 12:00; Start 12/12/18 at 15:00; Stop at 13:05; Status DC Acetaminophen (Tylenol) 650 mg PRN Q6HRS PRN PO FEVER > 100.5'F Last administered on 12/12/18at 15:38; Start 12/12/18 at 15:45 Sodium Chloride 1,000 ml @ 120 mls/hr 1X ONCE IV Last administered on at 19:20; Start 12/12/18 at 19:00; Stop 12/13/18 at 03:19; Status DC Nicotine (Nicoderm Cq 21mg) 1 patch DAILY TD Last administered on 12/15/18at 08: 18; Start 12/12/18 at 23:45 Hydralazine HCl (Apresoline Inj) 10 mg PRN Q4HRS PRN IVP ELEVATED BP, SEE COMMENTS Last administered on 12/15/18at 11:21; Start 12/13/18 at 08:30 Potassium Chloride (Klor-Con) 40 meq Q2H PO Last administered on 12/13/18at 13: 14; Start 12/13/18 at 09:00; Stop 12/13/18 at 13:01; Status DC Lorazepam (Ativan) 1 mg PRN Q6HRS PRN IV ANXIETY / AGITATION Last administered on 12/13/18 13:08; Start 12/13/18 at 09:45 Metoprolol Succinate (Toprol Xl) 25 mg DAILY PO Last administered on 12/13/18at 11:14; Start 12/13/18 at 11:00; Stop 12/13/18 at 12:52; Status DC Metoprolol Succinate (Toprol Xl) 50 mg DAILY PO Last administered on 12/14/18 08:25; Start 12/14/18 at 09:00; Stop 12/14/18 at 09:00; Status DC Hydralazine HCl (Apresoline Inj) 20 mg 1X ONCE IVP Last administered on 13:00; Start 12/13/18 at 13:00; Stop 12/13/18 at 13:01; Status DC Metoprolol Succinate (Toprol Xl) 25 mg 1X ONCE PO Last administered on at 13:13; Start 12/13/18 at 13:00; Stop 12/13/18 at 13:01; Status DC Amoxicillin/ Clavulanate Potassium (Augmentin 875/ 125mg) 1 tab BID PO Last administered on 12/15/18 08:19; Start 12/13/18 at 21:00 Potassium Phos/ Sodium Phos (Phos-Nak) 1 pkt DAILY PO Last administered on 12/15 10:24; Start 12/14/18 at 09:00 Potassium Chloride (Klor-Con) 20 meq DAILYWBKFT PO Last administered on 08:18; Start 12/14/18 at 08:00 Multivitamins 10 ml/Thiamine HCl 100 mg/Folic Acid 1 mg/Sodium Chloride 1,011.2 ml @ 100 mls/ hr DAILY IV Last administered on 12/15/18 08:19; Start at 15:00; Stop 12/17/18 at 19:07 Lorazepam (Ativan) 4 mg PRN Q1HR PRN PO For CIWA 8-14 Last administered on 12/14at 15:44; Start 12/13/18 at 14:00 Lorazepam (Ativan) 2 mg PRN Q1HR PRN IV For CIWA 8-14 Last administered on 12/13at 23:49; Start 12/13/18 at 14:00 Haloperidol Lactate (Haldol Inj) 5 mg PRN Q4HRS PRN IVP Hallucinatns,Confusn, Delirium; Start 12/13/18 at 14:00 Lisinopril (Prinivil) 10 mg DAILY PO Last administered on 12/14/18at 08:21; Start 12/14/18 at 09:00; Stop 12/14/18 at 09:00; Status DC Lisinopril (Prinivil) 20 mg DAILY PO ; Start 12/14/18 at 09:00; Status Cancel Lisinopril (Prinivil) 10 mg ONCE ONCE PO Last administered on 12/14/18at 09:06 ; Start 12/14/18 at 09:00; Stop 12/14/18 at 09:01; Status DC Lisinopril (Prinivil) 20 mg DAILY PO ; Start 12/15/18 at 09:00; Stop 12/15/18 at 09:00; Status DC Potassium Chloride (Klor-Con) 40 meq 1X ONCE PO Last administered on at 12:03; Start 12/14/18 at 11:45; Stop 12/14/18 at 11:46; Status DC Potassium Chloride (Klor-Con) 20 meq DAILYWBKFT PO ; Start 12/15/18 at 08:00; Status UNV Sertraline HCl (Zoloft) 50 mg DAILY PO Last administered on 12/15/18at 08:19; Start 12/14/18 at 12:30; Stop 12/15/18 at 08:58; Status DC Lactobacillus Rhamnosus (Culturelle) 1 cap BID PO Last administered on at 08:19; Start 12/14/18 at 21:00 Lisinopril (Prinivil) 40 mg DAILY PO Last administered on 12/15/18at 08:18; Start 12/15/18 at 09:00 Lisinopril (Prinivil) 20 mg 1X ONCE PO Last administered on 12/14/18at 15:54; Start 12/14/18 at 15:15; Stop 12/14/18 at 15:16; Status DC Amlodipine Besylate (Norvasc) 10 mg DAILY PO Last administered on 12/15/18at 10: 24; Start 12/15/18 at 09:00 Citalopram Hydrobromide (CeleXA) 10 mg DAILY PO Last administered on 12/15/18at 10:24; Start 12/15/18 at 09:00 Active Scripts Active Keflex (Cephalexin) 500 Mg Capsule 1 Cap PO QID 7 Days Reported Aspirin 325 Mg Tablet 1 Tab PO DAILY Benadryl (Diphenhydramine Hcl) 25 Mg Capsule 1 Cap PO QHS Metoprolol Succinate ( Xl ) (Metoprolol Succinate) 25 Mg Tab.er.24h 1 Tab PO DAILY Vitals/I & O Vital Sign - Last 24 Hours 12/14/18 12/14/18 12/14/18 12/14/18 12:00 12:00 14:00 14:26 Pulse 93 108 99 Resp 20 20 18 B/P (MAP) 159/90 (113) 159/90 (113) O2 Delivery Room Air Room Air Room Air Room Air 12/14/18 12/14/18 12/14/18 12/14/18 15:30 15:54 16:09 18:59 Temp 97.5 98.5 97.5 98.5 Pulse 93 93 96 Resp 22 19 B/P (MAP) 158/105 (122) 158/105 145/80 (101) Pulse Ox 97 96 O2 Delivery Room Air Room Air Room Air O2 Flow Rate 2.0 12/14/18 12/14/18 12/14/18 12/15/18 20:10 22:00 22:30 02:44 Temp 98.5 98.3 98.5 98.3 Pulse 96 96 101 Resp 17 16 B/P (MAP) 170/107 170/107 (128) 153/94 (113) Pulse Ox 95 96 O2 Delivery Room Air Room Air Room Air 12/15/18 12/15/18 12/15/18 12/15/18 06:58 08:18 08:54 10:24 Temp 98.2 98.2 Pulse 87 87 87 Resp 18 B/P (MAP) 151/92 (111) 151/92 151/92 Pulse Ox 95 O2 Delivery Room Air Room Air 12/15/18 12/15/18 12/15/18 11:03 11:11 11:21 Temp 98.3 98.3 Pulse 103 114 114 Resp 24 18 B/P (MAP) 198/124 (148) 205/127 (153) 205/127 Pulse Ox 97 O2 Delivery Room Air Room Air Intake and Output 12/14/18 12/14/18 12/15/18 15:00 23:00 07:00 Intake Total 720 ml 579 ml 675 ml Output Total 2100 ml 825 ml 1450 ml Balance -1380 ml -246 ml -775 ml TOMMY CASE MD Dec 15, 2018 11:55
[2018-12-15] MEDS ORDERED: AMOX1TAB11 PO (11:57)
[2018-12-15] MEDS ORDERED: CITA10TA8 PO (11:57)
[2018-12-15] MEDS ORDERED: LISI-130 PO (11:57)
[2018-12-15] MEDS ORDERED: HYDR-2868 PO (11:57)
[2018-12-15] MEDS ORDERED: AMLO10TA8 PO (11:57)
[2018-12-15] MEDS: ACETAMINOPHEN 325 MG TABLET. PO PRN ×2 (13:40→20:12)
[2018-12-15] MEDS ORDERED: hydrALAZINE 25 MG TABLET PO SCH (14:00)
--- NOTE | 2018-12-15 15:48 | NUR ---
SW following pt. Pt seen by [facility] and is no longer SI. Pt and family provided with [facility] mental health information. JOSE ALBERTO provided pt and family with health resource guide, Rx assistance cards, [facility] low priced rx list, Safety net clinics and community resource guide. Pt's son accepted resources and verbalized understanding. A safety contract also signed by [facility] and pt will dc home with family once medically cleared. Discussed with RN.
[2018-12-15] MEDS: fentaNYL PF VIAL 100 MCG/2 ML VIAL IV PRN (18:11)
[2018-12-16 03:00] VITALS: BP 157/96
[2018-12-16 07:00] VITALS: BP 175/117
--- NOTE | 2018-12-16 07:40 | RAD ---
PORTABLE CHEST 1V History: Respiratory failure Comparison: December 15, 2018 Findings: AP view of the chest is submitted. There is no new significant infiltrate, pleural fluid, pneumothorax. Heart size is stable, within normal limits. Impression: 1. No new significant radiographic abnormality is identified. Electronically signed by: Jh Osuna MD (12/16/2018 7:37 AM) [facility]
[2018-12-16] MEDS: POTASSIUM & SODIUM PHOSPHATES PACKET. PO SCH (08:31)
[2018-12-16] MEDS: POTASSIUM CHLORIDE 20 MEQ TABLET.ER. PO SCH (08:32)
[2018-12-16] MEDS: LACTOBACILLUS RHAMNOSUS GG 1 CAPSULE. PO SCH (08:32)
[2018-12-16] MEDS: AMOXICILLIN/K CLAV 875/125MG TABLET. PO SCH (08:32)
[2018-12-16] MEDS: CITALOPRAM 10 MG TABLET. PO SCH (08:33)
[2018-12-16] MEDS: LISINOPRIL 20 MG TABLET PO SCH (08:34)
[2018-12-16] MEDS: NICOTINE 21MG PATCH. TD SCH (08:34)
[2018-12-16 08:35] VITALS: BP 175/117
[2018-12-16] MEDS: amLODIPine BESYLATE 10 MG TABLET PO SCH (08:35)
[2018-12-16] MEDS: MULTIVIT INFUSN,ADULT 4,VIT K 10 ML, THIAMINE INJ 100 MG, FOLIC ACID INJ 1 MG in IV NOR... IV SCH (09:00)
--- NOTE | 2018-12-16 09:21 | PDOC3 ---
Discharge Summary Visit Information Date of Admission: Dec 11, 2018 Date of Discharge: Dec 16, 2018 Admitting Diagnosis Comment: Malignant hypertension, suicide ideation, cleared by pat team Final Diagnosis Problems Medical Problems: (1) Laceration of left forearm Status: Acute (2) Laceration of left wrist Status: Acute (3) Laceration of right forearm Status: Acute (4) Salicylate overdose Status: Acute (5) Suicide attempt by beta mariely overdose Status: Acute (6) Suicide attempt by hanging Status: Acute Brief Hospital Course Allergies Allergies Coded Allergies Type Severity Reaction Last Updated Verified No Known Drug Allergies 06/20/18 No Vital Signs Vital Signs Date Time Temp Pulse Resp B/P (MAP) Pulse Ox O2 Delivery O2 Flow Rate FiO2 12/16/18 08:35 123 175/117 12/16/18 07:00 97.3 16 98 Room Air 97.3 12/15/18 18:11 2.0 Lab Results Laboratory Tests Test 12/15/18 05:17 Sodium Level 140 mmol/L (136-145) Potassium Level 3.6 mmol/L (3.5-5.1) Chloride Level 105 mmol/L (98-107) Carbon Dioxide Level 24 mmol/L (21-32) Anion Gap 11 (6-14) Blood Urea Nitrogen 7 mg/dL (8-26) Creatinine 0.6 mg/dL (0.7-1.3) Estimated GFR (Cockcroft-Gault) 142.6 Glucose Level 91 mg/dL (70-99) Calcium Level 8.3 mg/dL (8.5-10.1) Brief Hospital Course Mr. Benavidez is a 48 old white male who was admitted because of suicide attempt. Cleared By PAT team. But blood pressure on the high side over 200s. Took a couple days before I could bring it down. No medications include continue aspirin 325, Norvasc 10, lisinopril, hydralazine 50 3 times a day I instructed him to follow PCP for his high blood pressure He understands at bedside Patient seen and examined, discharge time 31 minutes greater than 50% DC education counseling Discharge Information Condition at Discharge: Improved, Stable Disposition/Orders: D/C to Home Scheduled Amlodipine Besylate (Amlodipine Besylate) 10 Mg Tablet, 10 MG PO DAILY for htn MDD 1, #60 Prescribed by: TOMMY CASE on 12/15/18 1157 Amoxicillin/Potassium Clav (Amox Tr-K Clv 875-125 Mg Tab) 1 Each Tablet, 1 TAB PO BID for infection MDD 1 for 10 Days, #20 Prescribed by: TOMMY CASE on 12/15/18 1157 Aspirin (Aspirin) 325 Mg Tablet, 1 TAB PO DAILY for HCL, #30 Ref 5 (Reported) Entered as Reported by: GILBERT COLVIN on 12/11/181314 Last Action: New Order on 12/11/181314 by GILBERT COLVIN Cephalexin (Keflex) 500 Mg Capsule, 1 CAP PO QID for 7 Days, #28 Prescribed by: BRIANNE TEJADA PA-C on 06/20/18 1455 Citalopram Hydrobromide (Celexa) 10 Mg Tablet, 10 MG PO DAILY for depression MDD 1, #30 Prescribed by: TOMMY CASE on 12/15/18 1157 Diphenhydramine Hcl (Benadryl) 25 Mg Capsule, 1 CAP PO QHS for INSOMNIA, #30 Ref 1 (Reported) Entered as Reported by: GILBERT COLVIN on 12/11/181314 Last Action: New Order on 12/11/181314 by GILBERT COLVIN Hydralazine Hcl (Hydralazine Hcl) 25 Mg Tablet, 25 MG PO TID for high BP MDD 1, #90 Prescribed by: TOMMY CASE on 12/15/18 1157 Lisinopril (Lisinopril) 40 Mg Tablet, 40 MG PO DAILY for htn MDD 1, #60 Prescribed by: TOMMY CASE on 12/15/18 1157 Metoprolol Succinate (Metoprolol Succinate ( Xl )) 25 Mg Tab.er.24h, 1 TAB PO DAILY for HTN, #30 Ref 5 (Reported) Entered as Reported by: GILBERT COLVIN on 12/11/181314 Last Action: Continued on 12/13/18 1043 by ANNIA MEADE CHERRIE Y MD Dec 16, 2018 09:21
--- NOTE | 2018-12-16 11:30 | NUR ---
Discharge Note: JUAN CARLOS ZEE BUFFALO Discharge instructions and discharge home medications reviewed with Patient and a copy given. All questions have been answered and understanding verbalized. The following instructions and handouts were given: depression, stress mgmt, suicide, hypertension. Discontinued lines and drains: peripheral iv. Patient discharged to Home or Self Care with Family Member via Wheelchair
== END 2018-12-16 12:02 | disposition home or self-care (01) | DRG 917 ==
LOC: ER 10:00 → EEVIPCON 10:00 → 1 WEST ICU 11:10 → 5 NORTH 12-14 15:06
PROVIDERS: ADMIT Internal Medicine; ATTEND Internal Medicine
PROC: 5A1945Z Respiratory Ventilation, 24-96 Consecutive Hours (ICD-10-PCS; principal; 2018-12-11)
PROC: 0BH17EZ Insertion of Endotracheal Airway into Trachea, Via Natural or Artificial Opening (ICD-10-PCS; 2018-12-11)
DX: T39.092A Poisoning by salicylates, intentional self-harm, initial encounter (principal); J96.00 Acute respiratory failure, unspecified whether with hypoxia or hypercapnia; G92 Toxic encephalopathy; I21.4 Non-ST elevation (NSTEMI) myocardial infarction; T71.162A Asphyxiation due to hanging, intentional self-harm, initial encounter; E87.1 Hypo-osmolality and hyponatremia; E87.4 Mixed disorder of acid-base balance; F20.0 Paranoid schizophrenia; T39.012A Poisoning by aspirin, intentional self-harm, initial encounter; D72.829 Elevated white blood cell count, unspecified; E87.6 Hypokalemia; F32.9 Major depressive disorder, single episode, unspecified; G47.00 Insomnia, unspecified; F12.90 Cannabis use, unspecified, uncomplicated; H11.30 Conjunctival hemorrhage, unspecified eye; F10.10 Alcohol abuse, uncomplicated; I10 Essential (primary) hypertension; S51.811A Laceration without foreign body of right forearm, initial encounter; S51.812A Laceration without foreign body of left forearm, initial encounter; S61.512A Laceration without foreign body of left wrist, initial encounter; X78.9XXA Intentional self-harm by unspecified sharp object, initial encounter; Z79.899 Other long term (current) drug therapy; Z82.49 Family history of ischemic heart disease and other diseases of the circulatory system; Z91.19 Patient's noncompliance with other medical treatment and regimen; Z79.82 Long term (current) use of aspirin; Z87.891 Personal history of nicotine dependence; Z91.5 Personal history of self-harm; T46.1X2A Poisoning by calcium-channel blockers, intentional self-harm, initial encounter; Y92.89 Other specified places as the place of occurrence of the external cause; Y93.89 Activity, other specified; Y99.8 Other external cause status
CPT/HCPCS: 12006; 31500; 36415; 36600; 51702; 70450; 71045; 72125; 74018; 80048; 80053; 80307; 80329; 81001; 82533; 82805; 82962; 83605; 83735; 84100; 84439; 84443; 84484; 85007; 85025; 87641; 90471; 90714; 93005; 93306; 94002; 94003; 96361; 96374; 96375; 99406; G0480; J0360; J2060; J2250; J2405; J2543; J2704; J3010; J3480; J7030; 99291-25